=== PATIENT | female | born 1960 | race Caucasian/White ===

== ENCOUNTER 2019-08-12 16:17 | Emergency (ER) | payer OTHER ==
--- OUTSIDE RECORDS SUMMARY | 2019-08-12 16:19 | XMS REPORT ---
:1960 [facility] Address [address] [place] [address] Care Team Providers Name Role Phone UNKNOWN, REFFERING Primary Care Provider Unavailable KAIA ADRAIN Unavailable Unavailable Problems This patient has no known problems. Allergies, Adverse Reactions, Alerts This patient has no known allergies or adverse reactions. Medications This patient has no known medications. Results Test Description Test Time Test Comments Text Results Atomic Results Result Comments Culture, Urine 2017-07-14 07:59:00 Specimen: UrineCollected: 07/11/2017 07: 30 Status: Final Last Updated: 07/14/2017 07:59 Isolate (Final) (Final) 07/12/17 >100,000 CFU/mL Escherichia coli Amikacin <=16 Susceptible Ampicillin >16 Resistant Ampicillin/Sulb >16/8 Resistant Cefazolin <=8 Susceptible Cefepime <=4 Susceptible Cefotaxime <=2 Susceptible Ceftazidime <=1 Susceptible Ceftriaxone <=1 Susceptible Cefuroxime <=4 Susceptible Ciprofloxacin >2 Resistant Gentamicin <=4 Susceptible Imipenem <=1 Susceptible Levofloxacin >4 Resistant Meropenem <=1 Susceptible Nitrofurantoin <=32 Susceptible Piperacillin/Tazo <=16 Susceptible Tobramycin <=4 Susceptible Trimethoprim/Sulfa <=2/38 Susceptible Isolate (Final) (Final) 07/12/17 >100,000 CFU/mL Burkholderia cepacia (Pseudomonas) Ceftazidime 4 Susceptible Levofloxacin <=2 Susceptible Trimethoprim/Sulfa <=2/38 Susceptible Urinalysis Complete 2017-07-11 08:31:00 Test Item Value Reference Range Comments Color (test code=COLOR) Yellow Yellow,Straw,Pl yellow Clarity (test code=CLAR) Sl Cloudy Clear Specific [place] (test code=SPGR) 1.025 1.001-1.035 pH (test code=PH) 5.0 5.0-9.0 Ketone (test code=KET) 5 mg/dL Negative Glucose (test code=GLUCUR) Negative mg/dL Negative Protein (test code=PROT) 25 mg/dL Negative Bilirubin (test code=BILI) Negative mg/dL Negative Occult Blood (test code=UDOB) Large Negative Urobilinogen (test code=UROB) 0.2 mg/dL 0.2-1.0 Nitrite (test code=NIT) Positive Negative Leuk Esterase (test code=LEUK) Large Negative Micros Exam (test code=MEXAM) Indicated Epithelial Cells (test code=EPI) 6-9 /LPF 0-30 WBC, Urine (test code=UWBC) 10-14 /HPF 0-5 RBC, Urine (test code=URBC) 4-5 /HPF 0-5 Bacteria (test code=BACT) Many /HPF Crystals (test code=DM) Few Calcium Oxalate /HPF CBC with [id number] 07:40:00 Test Item Value Reference Range Comments WBC (test code=WBC) 7.0 K/cumm 4.4-10.5 RBC (test code=RBC) 4.98 M/cumm 3.75-5.20 Hemoglobin (test code=HGB) 15.2 gm/dL 12.2-14.8 Hematocrit (test code=HCT) 47.2 % 36.5-44.4 MCV (test code=MCV) 94.7 fL 80-100 MCH (test code=MCH) 30.5 pg 27.0-32.5 MCHC (test code=MCHC) 32.2 g/dL 32.0-37.5 RDW (test code=RDW) 14.0 % 11.5-14.5 Platelet Count (test code=PLTCT) 210 K/cumm 140-440 MPV (test code=MPV) 6.6 fL Diff Method (test code=DIFFM) Auto Neutrophil (test code=NEUT) 48.1 % 36-70 Lymphocyte (test code=LYMPH) 43.3 % 12-44 Monocyte (test code=MONO) 6.0 % 0-11 Eosinophil (test code=EOS) 2.1 % 0-7 Basophil (test code=BASO) 0.5 % 0-2 Neutro Abs (test code=ANEUT) 3.4 K/cumm 1.6-7.4 Lymph Abs (test code=ALYMPH) 3.0 K/cumm 0.5-4.6 Caroline Abs (test code=AMONO) 0.4 K/cumm 0.0-1.2 Eos Abs (test code=AEOS) 0.15 K/cumm 0.00-0.74 Baso Abs (test code=ABASO) 0.0 K/cumm 0.00-0.21 Culture, [id number] 09:11:00Specimen: UrineCollected: 06/17/2017 15:19 Status: Final Last Updated: 06/19/2017 09:11 Isolate (Final) (Final) 06/18/17 >100,000 CFU/mL Escherichia coli Amikacin <=16 Susceptible Ampicillin >16 Resistant Ampicillin/Sulb >16/8 Resistant Cefazolin <=8 Susceptible Cefepime <=4 Susceptible Cefotaxime <=2 Susceptible Ceftazidime <=1 Susceptible Ceftriaxone <=1 Susceptible Cefuroxime 8 SusceptibleCiprofloxacin >2 Resistant Gentamicin &lt ;=4 Susceptible Imipenem <=1 Susceptible Levofloxacin >4 Resistant Meropenem <=1 Susceptible Nitrofurantoin <=32 Susceptible Piperacillin/ Tazo <=16 Susceptible Tobramycin <=4 Susceptible Trimethoprim/Sulfa <=2/38 SusceptibleUrinalysis [id number] 19:15: 00 Test Item Value Reference Range Comments Color (test code=COLOR) Yellow Yellow,Straw,Pl yellow Clarity (test code=CLAR) Clear Clear Specific [place] (test code=SPGR) 1.010 1.001-1.035 pH (test code=PH) 7.0 5.0-9.0 Ketone (test code=KET) Negative mg/dL Negative Glucose (test code=GLUCUR) Negative mg/dL Negative Protein (test code=PROT) Negative mg/dL Negative Bilirubin (test code=BILI) Negative mg/dL Negative Occult Blood (test code=UDOB) Trace Negative Urobilinogen (test code=UROB) 0.2 mg/dL 0.2-1.0 Nitrite (test code=NIT) Positive Negative Leuk Esterase (test code=LEUK) Large Negative Micros Exam (test code=MEXAM) Indicated Epithelial Cells (test code=EPI) 3-5 /LPF 0-30 WBC, Urine (test code=UWBC) 0-2 /HPF 0-5 RBC, Urine (test code=URBC) 0-1 /HPF 0-5 Bacteria (test code=BACT) Moderate /HPF CBC with [id number] 16:49:00 Test Item Value Reference Range Comments WBC (test code=WBC) 5.7 K/cumm 4.4-10.5 RBC (test code=RBC) 5.47 M/cumm 3.75-5.20 Hemoglobin (test code=HGB) 16.5 gm/dL 12.2-14.8 Hematocrit (test code=HCT) 52.4 % 36.5-44.4 MCV (test code=MCV) 95.9 fL 80-100 MCH (test code=MCH) 30.2 pg 27.0-32.5 MCHC (test code=MCHC) 31.5 g/dL 32.0-37.5 RDW (test code=RDW) 14.2 % 11.5-14.5 Platelet Count (test code=PLTCT) 190 K/cumm 140-440 MPV (test code=MPV) 7.5 fL Diff Method (test code=DIFFM) Auto Neutrophil (test code=NEUT) 61.6 % 36-70 Lymphocyte (test code=LYMPH) 30.5 % 12-44 Monocyte (test code=MONO) 6.2 % 0-11 Eosinophil (test code=EOS) 1.0 % 0-7 Basophil (test code=BASO) 0.6 % 0-2 Neutro Abs (test code=ANEUT) 3.5 K/cumm 1.6-7.4 Lymph Abs (test code=ALYMPH) 1.7 K/cumm 0.5-4.6 Caroline Abs (test code=AMONO) 0.4 K/cumm 0.0-1.2 Eos Abs (test code=AEOS) 0.06 K/cumm 0.00-0.74 Baso Abs (test code=ABASO) 0.0 K/cumm 0.00-0.21
--- NOTE | 2019-08-12 16:56 | EDPHYS ---
Physician Documentation [facility] Name: Abimbola Erazo Age: 59 yrs Sex: Female : 1960 Arrival Date: 08/12/2019 Time: 16:20 Bed 15 Private MD: Mireya Thomson H ED Physician Boni Villa Historical: - Allergies: 08/12 16:27 Erythromycin; la1 16:27 PENICILLINS; la1 16:27 Sulfa (Sulfonamide Antibiotics); la1 16:27 TETRACYCLINES; la1 - PMHx: 16:27 back problems; MS; la1 - Immunization history:: Adult Immunizations up to date. - Social history:: Smoking status: Patient/guardian denies using tobacco. - Ebola Screening: : No symptoms or risks identified at this time. Vital Signs: 16:27 BP 121 / 65; Pulse 70; Resp 16; Temp 98.1; Pulse Ox 100% on R/A; Weight 90.72 kg; la1 Height 5 ft. 8 in. (172.72 cm); 16:27 Body Mass Index 30.41 (90.72 kg, 172.72 cm) la1 MDM: 16:42 Patient medically screened. pm1 16:53 Data reviewed: vital signs. Data interpreted: Pulse oximetry: on room air is 100 %. pm1 Interpretation: normal. Counseling: I had a detailed discussion with the patient and/or guardian regarding: the historical points, exam findings, and any diagnostic results supporting the discharge/admit diagnosis, lab results, the need for outpatient follow up, to return to the emergency department if symptoms worsen or persist or if there are any questions or concerns that arise at home. 08/12 16:42 Order name: Bladder Scanner; Complete Time: 17:15 pm1 Administered Medications: No medications were administered Disposition: 08/12/19 16:55 Discharged to Home. Impression: Urinary tract infection, site not specified. - Condition is Stable. - Discharge Instructions: Urinary Tract Infection, Adult. - Prescriptions for Ceftin 250 mg Oral Tablet - take 1 tablet by ORAL route every 12 hours for 10 days; 20 tablet. - Medication Reconciliation Form, Thank You Letter, Antibiotic Education, Prescription Opioid Use form. - Follow up: Emergency Department; When: As needed; Reason: Worsening of condition. Follow up: Private Physician; When: 2 - 3 days; Reason: Recheck today's complaints, Continuance of care, Re-evaluation by your physician. - Problem is new. - Symptoms have improved. Addendum: 08/17/2019 09:56 Co-signature as Attending Physician, Boni Villa MD I agree with the assessment and k dr plan of care. Signatures: Boni Villa MD MD [facility] Kwame Whitley, LOCATION ANALYST-C LOCATION ANALYST-[facility] Maurilio Jasso NP [employer]AND [employer] pm1 Twan Abraham, RN RN ae4 Corrections: (The following items were deleted from the chart) 08/12 17:25 16:55 08/12/2019 16:55 Discharged to Home. Impression: Urinary tract infection, site ae4 not specified. Condition is Stable. Forms are Medication Reconciliation Form, Thank You Letter, Antibiotic Education, Prescription Opioid Use. Follow up: Emergency Department; When: As needed; Reason: Worsening of condition. Follow up: Private Physician; When: 2 - 3 days; Reason: Recheck today's complaints, Continuance of care, Re-evaluation by your physician. Problem is new. Symptoms have improved. pm1
--- NOTE | 2019-08-12 16:56 | ER ---
Nurse's Notes [facility] Name: Abimbola Erazo Age: 59 yrs Sex: Female : 1960 Arrival Date: 08/12/2019 Time: 16:20 Bed 15 Private MD: Mireya Thomson H Diagnosis: Urinary tract infection, site not specified Presentation: 08/12 16:25 Presenting complaint: Patient states: my suprapubic keeps getting clogged up, I feel la1 like my bladder is full. I am able to flush it but just not making much output. Transition of care: patient was not received from another setting of care. Onset of symptoms was August 12, 2019. Risk Assessment: Do you want to hurt yourself or someone else? Patient reports no desire to harm self or others. Initial Sepsis Screen: Does the patient meet any 2 criteria? No. Patient's initial sepsis screen is negative. Does the patient have a suspected source of infection? No. Patient's initial sepsis screen is negative. Care prior to arrival: None. 16:25 Method Of Arrival: Wheelchair la1 16:25 Acuity: LILIANA 3 la1 Historical: - Allergies: 16:27 Erythromycin; la1 16:27 PENICILLINS; la1 16:27 Sulfa (Sulfonamide Antibiotics); la1 16:27 TETRACYCLINES; la1 - PMHx: 16:27 back problems; MS; la1 - Immunization history:: Adult Immunizations up to date. - Social history:: Smoking status: Patient/guardian denies using tobacco. - Ebola Screening: : No symptoms or risks identified at this time. Screenin:24 Abuse screen: Denies threats or abuse. Nutritional screening: No deficits noted. ae4 Tuberculosis screening: No symptoms or risk factors identified. Fall Risk None identified. Assessment: 16:30 General: Appears in no apparent distress. comfortable, obese, unkempt, Behavior is ae4 calm, cooperative. Pain: Complains of pain in suprapubic area. Neuro: Level of Consciousness is awake, alert, obeys commands, Oriented to person, place, time, situation, Appropriate for age. Cardiovascular: Patient's skin is warm and dry. Respiratory: Airway is patent Respiratory effort is even, unlabored, Respiratory pattern is regular, symmetrical. GI: Abdomen is round obese. : suprapubic catheter in place foul odor associated with catheter. EENT: No signs and/or symptoms were reported regarding the EENT system. wears glasses. . Derm: area surrounding insertion site to suprapubic area has crust, no redness or swelling. Musculoskeletal: No signs and/or symptoms reported regarding the musculoskeletal system. 17:19 Reassessment: No changes from previously documented assessment. ae4 Vital Signs: 16:27 BP 121 / 65; Pulse 70; Resp 16; Temp 98.1; Pulse Ox 100% on R/A; Weight 90.72 kg; la1 Height 5 ft. 8 in. (172.72 cm); 16:27 Body Mass Index 30.41 (90.72 kg, 172.72 cm) la1 ED Course: 16:20 Patient arrived in ED. mr 16:20 Berto CarynDO Abner is Private Physician. mr 16:27 Triage completed. la1 16:27 Arm band placed on left wrist. la1 16:31 Maurilio Jasso [facility]. pm1 16:31 Boni Villa MD is Attending Physician. pm1 16:43 Twan Abraham, MIRIAM is Primary Nurse. ae4 17:23 Patient is sitting in own motorized wheelchair left. Son at bedside. ae4 17:23 No provider procedures requiring assistance completed. Bladder scan completed. 43 mls. ae4 Patient did not have IV access during this emergency room visit. Administered Medications: No medications were administered Outcome: 16:55 Discharge ordered by MD. pm1 17:24 Discharged to home via wheelchair, with family. ae4 17:24 Condition: stable 17:24 Discharge instructions given to patient, Instructed on discharge instructions, follow up and referral plans. Demonstrated understanding of instructions, Prescriptions given X 1. 17:25 Patient left the ED. ae4 Signatures: SneedAbiola hastings mr WhitleyKwame, INFORMATION SYSTEMS SPECIALIST-C INFORMATION SYSTEMS SPECIALIST-Cla1 Maurilio Jasso NP LIVESTOCK TRUCKER pm1 Twan Abraham, RN RN ae4
[2019-08-12 17:35] VITALS: BP 121/65; TEMP 98.1; O2SAT 100
== END 2019-08-12 17:25 | disposition home or self-care (01) ==
LOC: ER 16:17
DX: N39.0 Urinary tract infection, site not specified (principal)
CPT/HCPCS: 99282

== ENCOUNTER 2019-08-15 20:39 | Emergency (ER) | payer OTHER ==
--- OUTSIDE RECORDS SUMMARY | 2019-08-15 20:42 | XMS REPORT ---
:1960 [facility] Address [address] [place] [address] Care Team Providers Name Role Phone UNKNOWN, REFFERING Primary Care Provider Unavailable KAIA ADRIAN Unavailable Unavailable Problems This patient has no [...] Clarity (test code=CLAR) Sl Cloudy Clear Specific [place] (test code=SPGR) 1.025 1.001-1.035 pH (test code=PH) [...] code=DM) Few Calcium Oxalate /HPF CBC with [id number] 07:40:00 Test Item Value Reference Range Comments [...] Lymph Abs (test code=ALYMPH) 3.0 K/cumm 0.5-4.6 [place] Abs (test code=AMONO) 0.4 K/cumm 0.0-1.2 Eos Abs (test code=AEOS) 0.15 K/cumm 0.00-0.74 Baso Abs (test code=ABASO) 0.0 K/cumm 0.00-0.21 Culture, [id number] 09:11:00Specimen: UrineCollected: 06/17/2017 15:19 Status: Final Last [...] Susceptible Tobramycin <=4 Susceptible Trimethoprim/Sulfa <=2/38 SusceptibleUrinalysis [id number] 19:15: 00 Test Item Value Reference Range Comments Color (test code=COLOR) Yellow Yellow,Straw,Pl yellow Clarity (test code=CLAR) Clear Clear Specific [place] (test code=SPGR) 1.010 1.001-1.035 pH (test code=PH) [...] Bacteria (test code=BACT) Moderate /HPF CBC with [id number] 16:49:00 Test Item Value Reference Range Comments [...] Lymph Abs (test code=ALYMPH) 1.7 K/cumm 0.5-4.6 [place] Abs (test code=AMONO) 0.4 K/cumm 0.0-1.2 Eos Abs (test code=AEOS) 0.06 K/cumm 0.00-0.74 Baso Abs (test code=ABASO) 0.0 K/cumm 0.00-0.21
[2019-08-15] MEDS ORDERED: NA CHLORIDE 0.9% 500 ML ONE (21:12)
[2019-08-15] MEDS ORDERED: DIAZEPAM 5 MG TABLET ONE (21:12)
[2019-08-15] MEDS ORDERED: ONDANSETRON 4 MG/2 ML VIAL ONE (21:12)
[2019-08-15] MEDS ORDERED: KETOROLAC 30 MG/ML INJ ONE (21:12)
[2019-08-15] MEDS ORDERED: HYDROMORPHONE HCL 1 MG/ML INJ ONE ×2 (21:12→22:03)
--- NOTE | 2019-08-15 23:23 | ER ---
Nurse's Notes [facility] Name: Abimbola Erazo Age: 59 yrs Sex: Female : 1960 Arrival Date: 08/15/2019 Time: 20:46 Bed 7 Private MD: Diagnosis: Pain in right knee;Other internal derangements of right knee;Multiple sclerosis Presentation: 08/15 20:46 Presenting complaint: EMS states: "this morning the pt was going to set into her chair jd3 when her leg twisted out from under her. the pt reported hearing a popping sound. there was no obvious deformity, but there is swelling and a bruising on her right pichardo below the knee.". Transition of care: patient was not received from another setting of care. Onset of symptoms was August 15, 2019. Risk Assessment: Do you want to hurt yourself or someone else? Patient reports no desire to harm self or others. Initial Sepsis Screen: Does the patient meet any 2 criteria? No. Patient's initial sepsis screen is negative. Does the patient have a suspected source of infection? No. Patient's initial sepsis screen is negative. Care prior to arrival: None. 20:46 Method Of Arrival: EMS: [facility] jd3 20:46 Acuity: LILIANA 3 jd3 Historical: - Allergies: 20:51 Erythromycin; jd3 20:51 PENICILLINS; jd3 20:51 Sulfa (Sulfonamide Antibiotics); jd3 20:51 TETRACYCLINES; jd3 - Home Meds: 20:51 fentanyl 50 mcg/hr Topical pt72 1 patch every 72 hours [Active]; Ronceverte 10-325 mg Oral jd3 tab 1 tab every 6 hours [Active]; Protonix 40 mg Oral TbEC 1 tab once daily [Active]; sertraline 100 mg Oral tab 2 tabs once daily [Active]; Lisinopril Oral [Active]; Ceftin Oral [Active]; Baclofen Oral [Active]; - PMHx: 20:51 back problems; MS; jd3 - PSHx: 20:51 left knee; spinal fusion L2-L5; jd3 - Immunization history:: Adult Immunizations up to date. - Social history:: Smoking status: Patient uses tobacco products, vape. - Ebola Screening: : Patient negative for fever greater than or equal to 101.5 degrees Fahrenheit, and additional compatible Ebola Virus Disease symptoms. - Family history:: not pertinent. Screenin:53 Abuse screen: Denies threats or abuse. Denies injuries from another. Nutritional lp1 screening: No deficits noted. Tuberculosis screening: No symptoms or risk factors identified. Fall Risk Total Buckley Fall Scale indicates High Risk Score (45 or more points). Fall prevention measures have been instituted. Side Rails Up X 2. Assessment: 20:51 General: Appears uncomfortable, Behavior is appropriate for age. Pain: Complains of lp1 pain in right knee and right pichardo Pain currently is 9 out of 10 on a pain scale. Quality of pain is described as squeezing, Aggravated by repositioning, Noted to be grimacing, moaning. Neuro: Level of Consciousness is awake, alert, obeys commands, Oriented to person, place, time, situation. Cardiovascular: Patient's skin is warm and dry. Respiratory: Respiratory effort is even, unlabored. GI: Abdomen is non-distended. : Casey in place to gravity drainage. EENT: No signs and/or symptoms were reported regarding the EENT system. Derm: Skin is pink, warm \\T\\ dry. Bruising that is dark purple, on right pichardo. Musculoskeletal: Range of motion: limited in right knee. 20:53 Reassessment: Ice pack applied to below right knee. lp1 21:54 Reassessment: Radiology at bedside. lp1 22:00 Reassessment: Patient with continued pain to right lower leg, Provider notified; Verbal lp1 order for Dilaudid 1 mg IV now. 23:30 Reassessment: Patient states continued pain to right lower leg, Provider notified. lp1 23:30 General: Appears uncomfortable. lp1 23:30 Pain: Noted to be grimacing. Derm: Skin is pink, warm \\T\\ dry. lp1 23:30 Reassessment: States pain to right lower leg. lp1 08/16 00:20 Reassessment: Verbal order from Provider for Dilaudid 1 mg IV now for patient lp1 discomfort. 00:30 Reassessment: Patient denies having ride home for discharge. lp1 00:55 Reassessment: [facility] at bedside for transfer home Patient states feeling better. lp1 Vital Signs: 08/15 20:52 BP 113 / 56; Pulse 79; Resp 18 S; Temp 98.9(O); Pulse Ox 100% on R/A; Weight 90.72 kg jd3 (R); Height 5 ft. 8 in. (172.72 cm) (R); Pain 10/10; 21:30 BP 113 / 56; Pulse 76; Resp 18; Pulse Ox 98% on R/A; lp1 22:00 BP 120 / 55; Pulse 78; Resp 18; Pulse Ox 100% on R/A; lp1 23:15 BP 96 / 72; Pulse 75; Resp 18; Pulse Ox 95% on R/A; Pain 7/10; lp1 08/16 00:00 BP 95 / 79; Pulse 73; Resp 18; Pulse Ox 96% on R/A; lp1 00:54 BP 106 / 93; Pulse 72; Resp 18; Pulse Ox 94% on R/A; Pain 6/10; lp1 08/15 20:52 Body Mass Index 30.41 (90.72 kg, 172.72 cm) [facility] ED Course: 08/15 20:46 Patient arrived in ED. jd3 20:49 Triage completed. jd3 20:49 Willian Ibarra MD is Attending Physician. [facility] 20:50 Cinthia Bruce, MIRIAM is Primary Nurse. lp1 20:52 Arm band placed on. jd3 20:53 Patient has correct armband on for positive identification. lp1 21:14 Inserted saline lock: 22 gauge in left antecubital area, using aseptic technique. jd3 22:01 Knee Right 2 View In Process Unspecified. EDMS 23:20 Femur Right XRAY In Process Unspecified. EDMS 23:22 Kwame Martinez MD is Referral Physician. [facility] 08/16 00:03 X-ray completed. Portable x-ray completed in exam room. Patient tolerated procedure 1 well. 00:15 Pelvis XRAY In Process Unspecified. EDMS 00:37 No provider procedures requiring assistance completed. lp1 00:55 IV discontinued, No redness/swelling at site. Pressure dressing applied. lp1 Administered Medications: 08/15 21:25 Drug: NS 0.9% 500 ml Route: IV; Rate: bolus; Site: left antecubital; lp1 08/16 00:57 Follow up: IV Status: Completed infusion; IV Intake: 500ml 1 08/15 21:25 Drug: TORadol 30 mg Route: IVP; Site: left antecubital; lp1 22:06 Follow up: Response: No change in condition lp1 21:25 Drug: Dilaudid 1 mg {Note: RASS 1.} Route: IVP; Site: left antecubital; lp1 22:06 Follow up: Response: Pain is unchanged, physician notified; RASS: Restless (+1) lp1 21:25 Drug: Zofran 4 mg Route: IVP; Site: left antecubital; lp1 22:07 Follow up: Response: No adverse reaction lp1 21:25 Drug: Valium 5 mg Route: PO; lp1 22:07 Follow up: Response: No adverse reaction lp1 22:06 Drug: Dilaudid 1 mg {Note: RASS 1.} Route: IVP; Site: left antecubital; lp1 23:23 Follow up: Response: Pain is unchanged, physician notified lp1 08/16 00:32 Drug: Dilaudid 1 mg Route: IVP; Site: left antecubital; lp1 00:56 Follow up: Response: Pain is decreased; RASS: Alert and Calm (0) 1 Intake: 00:57 IV: 500ml; Total: 500ml. lp1 Outcome: 08/15 23:23 Discharge ordered by . steve 08/16 00:56 Discharged to home via ambulance. lp1 Condition: stable Discharge instructions given to patient, Instructed on discharge instructions, follow up and referral plans. medication usage, Demonstrated understanding of instructions, follow-up care, medications, Prescriptions given X 2. 00:56 Patient left the ED. 1 Signatures: Dispatcher [employer] [facility] Willian Ibarra MD MD cha Harvey, Martha 1 Cinthia Bruce, RN RN 1 Timmy Tejeda RN RN jd3 Corrections: (The following items were deleted from the chart) 08/15 20:53 20:52 Wound care: 1 [facility] 08/16 00:33 08/15 23:30 General: Appears uncomfortable, lp1 lp1
--- NOTE | 2019-08-15 23:24 | EDPHYS ---
Physician Documentation [facility] Name: Abimbola Erazo Age: 59 yrs Sex: Female : 1960 Arrival Date: 08/15/2019 Time: 20:46 Bed 7 Private MD: ED Physician Willian Ibarra HPI: 08/15 20:59 This 59 yrs old Female presents to ER via EMS with complaints of Knee Pain. steve 20:59 The patient presents with decreased range of motion, pain, that is acute. The steve complaints affect the lateral aspect of right knee, posterior aspect of right knee, medial aspect of right knee and right knee. Context: The problem was sustained at home. Onset: The symptoms/episode began/occurred today. Modifying factors: The symptoms are alleviated by nothing. Associated signs and symptoms: The patient has no apparent associated signs or symptoms. Treatment prior to arrival includes: no previous treatment. Severity of symptoms: At their worst the symptoms were moderate, in the emergency department the symptoms are unchanged. The patient has not experienced similar symptoms in the past. Historical: - Allergies: 20:51 Erythromycin; jd3 20:51 PENICILLINS; jd3 20:51 Sulfa (Sulfonamide Antibiotics); jd3 20:51 TETRACYCLINES; jd3 - Home Meds: 20:51 fentanyl 50 mcg/hr Topical pt72 1 patch every 72 hours [Active]; [place] 10-325 mg Oral jd3 tab 1 tab every 6 hours [Active]; Protonix 40 mg Oral TbEC 1 tab once daily [Active]; sertraline 100 mg Oral tab 2 tabs once daily [Active]; Lisinopril Oral [Active]; Ceftin Oral [Active]; Baclofen Oral [Active]; - PMHx: 20:51 back problems; MS; jd3 - PSHx: 20:51 left knee; spinal fusion L2-L5; jd3 - Immunization history:: Adult Immunizations up to date. - Social history:: Smoking status: Patient uses tobacco products, vape. - Ebola Screening: : Patient negative for fever greater than or equal to 101.5 degrees Fahrenheit, and additional compatible Ebola Virus Disease symptoms. - Family history:: not pertinent. ROS: 20:59 Constitutional: Negative for fever, chills, and weight loss, Eyes: Negative for injury, steve pain, redness, and discharge, ENT: Negative for injury, pain, and discharge, Neck: Negative for injury, pain, and swelling, Cardiovascular: Negative for chest pain, palpitations, and edema, Respiratory: Negative for shortness of breath, cough, wheezing, and pleuritic chest pain, Abdomen/GI: Negative for abdominal pain, nausea, vomiting, diarrhea, and constipation, Back: Negative for injury and pain, : Negative for injury, bleeding, discharge, and swelling, Skin: Negative for injury, rash, and discoloration, Neuro: Negative for headache, weakness, numbness, tingling, and seizure, Psych: Negative for depression, anxiety, suicide ideation, homicidal ideation, and hallucinations, Allergy/Immunology: Negative for hives, rash, and allergies, Endocrine: Negative for neck swelling, polydipsia, polyuria, polyphagia, and marked weight changes, Hematologic/Lymphatic: Negative for swollen nodes, abnormal bleeding, and unusual bruising. 20:59 MS/extremity: Positive for injury or acute deformity, decreased range of motion, pain, swelling, tenderness. Exam: 21:01 Constitutional: This is a well developed, well nourished patient who is awake, alert, steve and in no acute distress. Head/Face: Normocephalic, atraumatic. Eyes: Pupils equal round and reactive to light, extra-ocular motions intact. Lids and lashes normal. Conjunctiva and sclera are non-icteric and not injected. Cornea within normal limits. Periorbital areas with no swelling, redness, or edema. ENT: Nares patent. No nasal discharge, no septal abnormalities noted. Tympanic membranes are normal and external auditory canals are clear. Oropharynx with no redness, swelling, or masses, exudates, or evidence of obstruction, uvula midline. Mucous membranes moist. Neck: Trachea midline, no thyromegaly or masses palpated, and no cervical lymphadenopathy. Supple, full range of motion without nuchal rigidity, or vertebral point tenderness. No Meningismus. Chest/axilla: Normal chest wall appearance and motion. Nontender with no deformity. No lesions are appreciated. Cardiovascular: Regular rate and rhythm with a normal S1 and S2. No gallops, murmurs, or rubs. Normal PMI, no JVD. No pulse deficits. Respiratory: Lungs have equal breath sounds bilaterally, clear to auscultation and percussion. No rales, rhonchi or wheezes noted. No increased work of breathing, no retractions or nasal flaring. Abdomen/GI: Soft, non-tender, with normal bowel sounds. No distension or tympany. No guarding or rebound. No evidence of tenderness throughout. Back: No spinal tenderness. No costovertebral tenderness. Full range of motion. Skin: Warm, dry with normal turgor. Normal color with no rashes, no lesions, and no evidence of cellulitis. Neuro: Awake and alert, GCS 15, oriented to person, place, time, and situation. Cranial nerves II-XII grossly intact. Motor strength 5/5 in all extremities. Sensory grossly intact. Cerebellar exam normal. Normal gait. Psych: Awake, alert, with orientation to person, place and time. Behavior, mood, and affect are within normal limits. 21:01 Musculoskeletal/extremity: ROM: intact in all extremities, Circulation is intact in all extremities. Sensation intact. Compartment Syndrome exam of affected extremity: is normal. DVT Exam: No signs of deep vein thrombosis. negative Homans' sign noted on exam, no appreciated bluish discoloration, no erythema, no increased warmth, pain, swelling, tenderness. Vital Signs: 20:52 BP 113 / 56; Pulse 79; Resp 18 S; Temp 98.9(O); Pulse Ox 100% on R/A; Weight 90.72 kg jd3 (R); Height 5 ft. 8 in. (172.72 cm) (R); Pain 10/10; 21:30 BP 113 / 56; Pulse 76; Resp 18; Pulse Ox 98% on R/A; lp1 22:00 BP 120 / 55; Pulse 78; Resp 18; Pulse Ox 100% on R/A; lp1 23:15 BP 96 / 72; Pulse 75; Resp 18; Pulse Ox 95% on R/A; Pain 7/10; lp1 1201 00:00 BP 95 / 79; Pulse 73; Resp 18; Pulse Ox 96% on R/A; lp1 00:54 BP 106 / 93; Pulse 72; Resp 18; Pulse Ox 94% on R/A; Pain 6/10; lp1 08/15 20:52 Body Mass Index 30.41 (90.72 kg, 172.72 cm) jd3 MDM: 08/15 20:49 Patient medically screened. steve 21:01 Data reviewed: vital signs, nurses notes, lab test result(s), EKG, radiologic studies. [facility] 08/15 22:01 Order name: Knee Right 2 View EDMS 08/15 22:09 Order name: Femur Right XRAY [facility] 08/15 23:16 Order name: Pelvis XRAY [facility] 08/15 21:37 Order name: Ice pack; Complete Time: 21:42 [facility] 08/15 23:17 Order name: Knee Immobilizer; Complete Time: 23:56 [facility] Administered Medications: 21:25 Drug: NS 0.9% 500 ml Route: IV; Rate: bolus; Site: left antecubital; [facility] 08/16 00:57 Follow up: IV Status: Completed infusion; IV Intake: 500ml [facility] 08/15 21:25 Drug: TORadol 30 mg Route: IVP; Site: left antecubital; [facility] 22:06 Follow up: Response: No change in condition [facility] 21:25 Drug: Dilaudid 1 mg {Note: RASS 1.} Route: IVP; Site: left antecubital; [facility] 22:06 Follow up: Response: Pain is unchanged, physician notified; RASS: Restless (+1) [facility] 21:25 Drug: Zofran 4 mg Route: IVP; Site: left antecubital; 1 22:07 Follow up: Response: No adverse reaction [facility] 21:25 Drug: Valium 5 mg Route: PO; 1 22:07 Follow up: Response: No adverse reaction [facility] 22:06 Drug: Dilaudid 1 mg {Note: RASS 1.} Route: IVP; Site: left antecubital; [facility] 23:23 Follow up: Response: Pain is unchanged, physician notified [facility] 08/16 00:32 Drug: Dilaudid 1 mg Route: IVP; Site: left antecubital; 1 00:56 Follow up: Response: Pain is decreased; RASS: Alert and Calm (0) [facility] Disposition: 08/15/19 23:23 Discharged to Home. Impression: Pain in right knee, Other internal derangements of right knee, Multiple sclerosis. - Condition is Stable. - Discharge Instructions: Joint Pain, How to Use a Knee Brace, Musculoskeletal Pain, Knee Pain, Multiple Sclerosis, Knee Pain, [id number]. - Prescriptions for Ibuprofen 600 mg Oral Tablet - take 1 tablet by ORAL route every 8 hours As needed take with food; 21 tablet. Tylenol- Codeine #3 300-30 mg Oral Tablet - take 2 tablet by ORAL route every 6 hours As needed; 30 tablet. - Medication Reconciliation Form, Thank You Letter, Antibiotic Education, Prescription Opioid Use form. - Follow up: Private Physician; When: 2 - 3 days; Reason: Recheck today's complaints, Continuance of care, Re-evaluation by your physician. Follow up: Kwame Martinez MD; When: 2 - 3 days; Reason: Recheck today's complaints, Re-evaluation by your physician. - Problem is new. - Symptoms have improved. Signatures: Dispatcher [employer] [facility] Willian Ibarra MD MD cha Pena, Laura RN RN lp1 Timmy Tejeda RN RN jd3 Corrections: (The following items were deleted from the chart) 08/15 22:01 21:38 Knee Right 3 View+RAD.RAD.BRZ ordered. [facility] 08/16 00:56 08/15 23:23 08/15/2019 23:23 Discharged to Home. Impression: Pain in right knee; Other lp1 internal derangements of right knee; Multiple sclerosis. Condition is Stable. Forms are Medication Reconciliation Form, Thank You Letter, Antibiotic Education, Prescription Opioid Use. Follow up: Private Physician; When: 2 - 3 days; Reason: Recheck today's complaints, Continuance of care, Re-evaluation by your physician. Follow up: Kwame Martinez; When: 2 - 3 days; Reason: Recheck today's complaints, Re-evaluation by your physician. Problem is new. Symptoms have improved. steve
[2019-08-16] MEDS ORDERED: HYDROMORPHONE HCL 1 MG/ML INJ ONE (00:26)
[2019-08-16 01:33] VITALS: TEMP 98.9
[2019-08-16 01:39] VITALS: BP 106/93; O2SAT 94
--- NOTE | 2019-08-16 13:10 | RAD REPORT ---
EXAM DESCRIPTION: RAD - Pelvis - 08/16/2019 12:08 am CLINICAL HISTORY: PAIN COMPARISON: Femur Right dated 08/15/2019; CHEST PA AND LAT 2 VIEW dated 12/08/2014 FINDINGS: Diffuse osteopenia is seen. Old right hemipelvis for fractures noted. Mild arthritic graves es involve the superior right hip. Hardware is present the lumbosacral spine. No acute fracture seen. If pain persists or progresses, however, MR imaging may be considered given the degree of osteopenia
--- NOTE | 2019-08-16 13:16 | RAD REPORT ---
EXAM DESCRIPTION: RAD - Femur Right - 08/15/2019 11:20 pm CLINICAL HISTORY: PAIN COMPARISON: No comparisons FINDINGS: Diffuse osteopenia is seen. No acute fracture of the femur. Evidence of previous fracture the right hemipelvis seen.
--- NOTE | 2019-08-16 13:17 | RAD REPORT ---
EXAM DESCRIPTION: RAD - Knee Right 2 View - 08/15/2019 10:01 pm CLINICAL HISTORY: Pain;Swelling COMPARISON: No comparisons FINDINGS: Diffuse osteopenia is seen. Severe osteoarthritis involves the medial compartment with bon e-on-bone. Soft tissue swelling is seen along the medial aspect of the knee. A small suprapatellar rachana int effusion. Slight irregularity is seen along the tibial tuberosity, age uncertain. If the patient has clinical point tenderness in this location, this may be an acute finding.
== END 2019-08-16 00:56 | disposition home or self-care (01) ==
LOC: ER 20:39
DX: M23.91 Unspecified internal derangement of right knee (principal); G35 Multiple sclerosis; Z88.0 Allergy status to penicillin; Z88.1 Allergy status to other antibiotic agents; Z88.2 Allergy status to sulfonamides
CPT/HCPCS: 96361; 72170; 73560; 73552; 96375; 96374; 99284; J1170 ×3; J7040; J2405

== ENCOUNTER 2019-10-25 16:35 | Emergency (ER) | payer OTHER ==
--- OUTSIDE RECORDS SUMMARY | 2019-10-25 16:37 | XMS REPORT ---
:1960 Author Organization [facility] Address [address] [place] [address] Care Team Providers Name Role Phone UNKNOWN, [...] Clarity (test code=CLAR) Sl Cloudy Clear Specific Procious (test code=SPGR) 1.025 1.001-1.035 pH (test code=PH) [...] code=DM) Few Calcium Oxalate /HPF CBC with [id number] 07:40:00 Test Item Value Reference Range Comments [...] Lymph Abs (test code=ALYMPH) 3.0 K/cumm 0.5-4.6 [place] Abs (test code=AMONO) 0.4 K/cumm 0.0-1.2 Eos Abs (test code=AEOS) 0.15 K/cumm 0.00-0.74 Baso Abs (test code=ABASO) 0.0 K/cumm 0.00-0.21 Culture, [id number] 09:11:00Specimen: UrineCollected: 06/17/2017 15:19 Status: Final Last [...] Susceptible Tobramycin <=4 Susceptible Trimethoprim/Sulfa <=2/38 SusceptibleUrinalysis [id number] 19:15: 00 Test Item Value Reference Range Comments Color (test code=COLOR) Yellow Yellow,Straw,Pl yellow Clarity (test code=CLAR) Clear Clear Specific [place] (test code=SPGR) 1.010 1.001-1.035 pH (test code=PH) [...] Bacteria (test code=BACT) Moderate /HPF CBC with [id number] 16:49:00 Test Item Value Reference Range Comments [...] Lymph Abs (test code=ALYMPH) 1.7 K/cumm 0.5-4.6 [place] Abs (test code=AMONO) 0.4 K/cumm 0.0-1.2 Eos Abs (test code=AEOS) 0.06 K/cumm 0.00-0.74 Baso Abs (test code=ABASO) 0.0 K/cumm 0.00-0.21
[2019-10-25] MEDS ORDERED: FENTANYL CITR 100 MCG/2 ML ONE ×3 (17:46→21:20)
[2019-10-25] MEDS ORDERED: ONDANSETRON 4 MG/2 ML VIAL ONE (17:46)
[2019-10-25 18:25] LABS: BUN Blood Urea Nitrogen 11 mg/dL (7-18); Bicarbonate 30 mmol/L (21-32); Glucose Level 83 mg/dL (74-106); Potassium 4.4 mmol/L (3.5-5.1); Sodium Level 140 mmol/L (136-145)
--- NOTE | 2019-10-25 18:40 | RAD REPORT ---
EXAM DESCRIPTION: RAD - Chest Single View - 10/25/2019 6:34 pm CLINICAL HISTORY: fall from wheelchair Chest pain. COMPARISON: CHEST PA AND LAT 2 VIEW dated 12/08/2014; CHEST PA AND LAT 2 VIEW dated 06/21/2014 FINDINGS: Portable technique limits examination quality. The lungs are grossly clear. The heart is normal in size. No displaced fractures. IMPRESSION: No acute intrathoracic process suspected.
--- NOTE | 2019-10-25 19:18 | RAD REPORT ---
EXAM DESCRIPTION: RAD - Pelvis - 10/25/2019 7:09 pm CLINICAL HISTORY: fall from wheelchair COMPARISON: Pelvis dated 08/15/2019; Femur Right dated 10/25/2019; Tib Fib Right dated 10/25/2019; Femur Left dated 10/25/2019 FINDINGS: Hardware is in place in the lower lumbar spine. The bones are mildly osteopenic. Mild dege nerative changes are present in both hips. No acute fracture evident.
--- NOTE | 2019-10-25 19:19 | RAD REPORT ---
EXAM DESCRIPTION: RAD - Tib Fib Right - 10/25/2019 7:09 pm CLINICAL HISTORY: fall from wheelchair;Pain COMPARISON: No comparisons FINDINGS: Diffuse osteopenia is seen limiting bone detail. Prominent arthritic changes are noted in the right knee. No tibia/ fibula fracture appreciated.
--- NOTE | 2019-10-25 19:19 | RAD REPORT ---
EXAM DESCRIPTION: RAD - Femur Right - 10/25/2019 7:10 pm CLINICAL HISTORY: fall from wheelchair;Pain COMPARISON: Femur Right dated 08/15/2019; Knee Right 2 View dated 08/15/2019; Pelvis dated 9 FINDINGS: Comminuted fracture involves the distal shaft of the right femur. The bones are diffusely osteopenic.
--- NOTE | 2019-10-25 19:20 | RAD REPORT ---
EXAM DESCRIPTION: RAD - Femur Left - 10/25/2019 7:09 pm CLINICAL HISTORY: fall from wheelchair COMPARISON: No comparisons FINDINGS: Comminuted fracture involves the distal shaft of the left femur. Left total knee arthropla sty is present. The bones are osteopenic.
[2019-10-25] MEDS ORDERED: MORPHINE 4 MG/ML SYR ONE ×2 (19:21→20:42)
[2019-10-25 19:37] LABS: Absolute Lymphocytes (CBC) 2.1 K/uL (0.7-4.9); Basophils % 0.4 % (0-1.3); Hematocrit 43.8 % (36.0-45.0); Lymphocytes % 11.6 % (15.3-44.8); MPV 7.8 fL (7.6-11.3); RBC Red Blood Cell Count 4.83 M/uL (3.86-4.86)
[2019-10-25] MEDS ORDERED: NA CHLORIDE 0.9% 1,000 ML ONE (19:59)
--- NOTE | 2019-10-25 20:34 | RAD REPORT ---
EXAM DESCRIPTION: CT - Head C Spine Cap Hansa Con - 10/25/2019 8:12 pm CLINICAL HISTORY: Trauma, head and neck injury. Chest, abdomen and pelvis pain. fall from wheelchair COMPARISON: No comparisons TECHNIQUE: CT head without contrast. CT cervical spine without contrast with coronal and sagittal reformatted images. CT chest, abdomen and pelvis with IV contrast (approximately 100 mL nonionic IV contrast) with haines l and sagittal reformatted images of the spine. All CT scans are performed using dose optimization technique as appropriate and may include automated exposure control or mA/KV adjustment according to patient size. FINDINGS: CT HEAD WITHOUT CONTRAST: No intracranial hemorrhage, hydrocephalus or extra-axial fluid collection. Mild generalized brain atr ophy is present with mild periventricular and deep white matter chronic microvascular ischemic change s. No areas of brain edema or midline shift. The paranasal sinuses and mastoids are clear. The calvarium is intact. CT CERVICAL SPINE WITHOUT CONTRAST: No fracture or subluxation. Mild to moderate lower cervical spondylosis. The prevertebral soft tissue s are normal in thickness. CT CHEST, ABDOMEN, PELVIS WITH CONTRAST: The lungs are clear.No pneumothorax or pericardial/pleural fluid. No evidence of intra-abdominal visceral injury, free fluid or free air. Prominent degenerative levoscoliosis of the lumbar spine with hardware in place. No fractures. IMPRESSION: Negative for acute traumatic findings.
[2019-10-25] MEDS ORDERED: HYDROMORPHONE HCL 1 MG/ML INJ ONE ×2 (22:29→23:24)
[2019-10-25] MEDS ORDERED: NA CHLORIDE 0.9% 100 ML IV ONE (22:29)
--- NOTE | 2019-10-25 22:37 | ER ---
Nurse's Notes [facility] Name: Abimbola Erazo Age: 59 yrs Sex: Female : 1960 Arrival Date: 10/25/2019 Time: 16:43 Bed 14 Private MD: Diagnosis: Fall from moving wheelchair (powered);Displaced comminuted fracture of shaft of left femur-distal femur;Displaced comminuted fracture of shaft of right femur-distal femur Presentation: 10/25 16:48 Presenting complaint: EMS states: Pt's wheelchair wheel caught the edge of a curb ss causing her to fall in a shallow ditch. Pt c/o pain to R thigh area as well as L mid back area. Denies LOC. Transition of care: patient was not received from another setting of care. Onset of symptoms was October 25, 2019. Risk Assessment: Do you want to hurt yourself or someone else? Patient reports no desire to harm self or others. Initial Sepsis Screen: Does the patient meet any 2 criteria? No. Patient's initial sepsis screen is negative. Does the patient have a suspected source of infection? No. Patient's initial sepsis screen is negative. Care prior to arrival: None. 16:48 Method Of Arrival: EMS: [facility] ss 16:48 Acuity: LILIANA 3 ss Historical: - Allergies: 16:50 Erythromycin; ss 16:50 PENICILLINS; ss 16:50 Sulfa (Sulfonamide Antibiotics); ss 16:50 TETRACYCLINES; ss - Home Meds: 16:50 Baclofen Oral [Active]; Ceftin Oral [Active]; fentanyl 50 mcg/hr Topical pt72 1 patch ss every 72 hours [Active]; lisinopril Oral [Active]; sertraline 100 mg Oral tab 2 tabs once daily [Active]; Protonix 40 mg Oral TbEC 1 tab once daily [Active]; [place] 10-325 mg Oral tab 1 tab every 6 hours [Active]; - PMHx: 16:50 back problems; MS; ss - PSHx: 16:50 left knee; spinal fusion L2-L5; ss - Immunization history:: Adult Immunizations up to date. - Coronavirus screen:: The patient has NOT traveled to [place], [place], or [place] in the past 14 days. Proceed with normal triage process as indicated. - Social history:: Smoking status: Patient reports the use of cigarette tobacco products, denies chronic smoking, but will smoke occasionally. - Ebola Screening: : Patient denies exposure to infectious person Patient denies travel to an Ebola-affected area in the 21 days before illness onset. Screenin:00 Abuse screen: Denies threats or abuse. Nutritional screening: No deficits noted. vc Tuberculosis screening: No symptoms or risk factors identified. Fall Risk None identified. Assessment: 17:08 Reassessment: Pt changed out of wet clothing. ss 17:15 General: Appears distressed, uncomfortable, obese, Behavior is cooperative, appropriate vc for age, anxious, crying. Pain: Complains of pain in left leg and right leg, NECK, BACK, ABDOMEN. Neuro: Level of Consciousness is awake, alert, obeys commands, Oriented to person, place, time, situation, Appropriate for age. Cardiovascular: Patient's skin is warm and dry. Respiratory: Respiratory effort is even, unlabored, Respiratory pattern is regular, symmetrical. GI: No signs and/or symptoms were reported involving the gastrointestinal system. : No signs and/or symptoms were reported regarding the genitourinary system. EENT: No signs and/or symptoms were reported regarding the EENT system. Derm: Skin temperature is cold COLD AT BILATERAL FEET, PULSES AUSCULTATED WITH DOPPLER. Musculoskeletal: Range of motion: limited in all extremities. 17:50 Reassessment: PATIENT TO XRAY VIA STRETCHER. vc 17:50 Reassessment:. vc 19:20 Reassessment: PATIENT BACK FROM XRAY. vc 19:30 Reassessment: PATIENT TO CT VIA STRETCHER. vc 19:40 Reassessment: I agree with the primary assessment. bb 20:30 Reassessment: Patient and/or family updated on plan of care and expected duration. Pain vc level reassessed. Patient is alert, oriented x 3, equal unlabored respirations, skin warm/dry/pink. PATIENT BACK FROM CT. 21:00 Reassessment: No changes from previously documented assessment. Patient and/or family vc updated on plan of care and expected duration. Pain level reassessed. Patient states symptoms have not improved. 22:00 Reassessment: No changes from previously documented assessment. Patient and/or family vc updated on plan of care and expected duration. Pain level reassessed. Patient states symptoms have not improved. 23:00 Reassessment: No changes from previously documented assessment. Patient and/or family vc updated on plan of care and expected duration. Pain level reassessed. Patient is alert, oriented x 3, equal unlabored respirations, skin warm/dry/pink. Patient states symptoms have improved. Vital Signs: 16:50 BP 128 / 84; Pulse 64; Resp 17; Temp 98.8(O); Pulse Ox 97% on R/A; Height 5 ft. 8 in. ss (172.72 cm); Pain 6/10; 20:35 BP 86 / 51; Pulse 115; Resp 18; Pulse Ox 99% on R/A; Pain 10/10; vc 21:10 BP 102 / 60; Pulse 113; Resp 20; Pulse Ox 95% on R/A; Pain 10/10; vc 22:00 BP 74 / 59; Pulse 102; Resp 18; Pulse Ox 100% on R/A; vc 22:30 BP 86 / 55; Pulse 93; Resp 18; Pulse Ox 98% on R/A; Pain 10/10; vc 23:00 BP 93 / 61; Pulse 100; Resp 20; Pulse Ox 100% on R/A; Pain 7/10; vc ED Course: 16:43 Patient arrived in ED. ss 16:43 Maurilio Jasso NP is PHCP. pm1 16:43 Danny Kaur MD is Attending Physician. pm1 16:43 Willian Chicas PA is PHCP. pm1 16:49 Triage completed. ss 16:50 Arm band placed on left wrist. ss 17:00 Patient has correct armband on for positive identification. Placed in gown. Bed in low vc position. Call light in reach. Side rails up X2. 17:23 Radiology exam delayed due to lab results not completed at this time. (BUN/Creatinine). mw3 17:39 Hetal Gomez, RN is Primary Nurse. vc 18:35 XRAY Chest (1 view) In Process Unspecified. EDMS 19:10 XRAY Pelvis In Process Unspecified. EDMS 19:10 XRAY Femur RIGHT In Process Unspecified. EDMS 19:10 XRAY Tib Fib RIGHT In Process Unspecified. EDMS 19:10 XRAY Femur LEFT In Process Unspecified. EDMS 20:12 CT completed. Patient tolerated procedure well. Patient moved back from CT. bq 20:14 CT Traumagram (Head C Spine CAP W Con) In Process Unspecified. EDMS 21:06 Jp Silva MD is Attending Physician. cp 23:30 No provider procedures requiring assistance completed. Patient transferred, IV remains vc in place. Administered Medications: 17:50 Drug: fentaNYL (PF) 25 mcg {Note: rass 0 .} Route: IVP; Site: left antecubital; vc 18:15 Follow up: Response: No adverse reaction; Pain is unchanged, physician notified vc 17:55 Drug: Zofran 4 mg Route: IVP; Site: left antecubital; vc 18:15 Follow up: Response: No adverse reaction vc 19:00 Drug: NS 0.9% 1000 ml Route: IV; Rate: 1000 ml/hr; Site: left antecubital; vc 20:00 Follow up: IV Status: Completed infusion; IV Intake: 1000ml vc 19:23 Drug: morphine 4 mg {Note: RASS 1.} Route: IVP; Site: left antecubital; ea 19:40 Follow up: Response: No adverse reaction; Pain is unchanged, physician notified vc 20:35 Drug: fentaNYL (PF) 25 mcg Route: IVP; Site: left antecubital; vc 21:00 Follow up: Response: Pain is unchanged, physician notified vc 21:10 Drug: fentaNYL (PF) 50 mcg Route: IVP; Site: left antecubital; vc 21:40 Follow up: Response: Pain is unchanged, physician notified vc 21:57 Drug: morphine 4 mg Route: IVP; Site: left antecubital; vc 22:15 Follow up: Response: Pain is unchanged, physician notified vc 22:50 Drug: Dilaudid 1 mg Route: IVP; Rate: calculated rate; Infused Over: 30 mins; Site: ea left antecubital; 23:00 Follow up: Response: Pain is decreased vc 23:38 Drug: Dilaudid 1 mg Route: IVP; Rate: 250 ml/hr; Infused Over: 1 hrs; Site: left vc antecubital; 10/26 00:03 Follow up: Response: Medication administered at discharge. vc Intake: 10/25 20:00 IV: 1000ml; Total: 1000ml. vc 10/26 00:37 IV: 250ml (IV Fluid); Total: 1250ml. bb 00:37 IV: 250ml (IV Fluid); Total: 1500ml. bb Outcome: 10/25 22:37 ER care complete, transfer ordered by . cp 23:30 Transferred by ground EMS to other acute care facility: [facility]. Transfer form vc completed. X-rays sent w/ patient. 23:30 Condition: stable 23:30 Discharge instructions given to patient. vc 23:39 Patient left the ED. vc Signatures: Dispatcher [employer] EDMS Ana Conley Brenda RN RN bb Mara Briseno RN RN ss Willian Chicas, PA PA cp Maurilio Jasso, STRIP PRESSER STRIP PRESSER pm1 Yumiko Wells RN RN ea Katty Tariq mw3 Hetal Gomez RN RN vc Corrections: (The following items were deleted from the chart) 17:07 16:48 Acuity: LILIANA 4 ss ss 19:23 19:23 morphine 4 mg IVP in left antecubital ea ea 10/26 00:10/25 18:15 Reassessment: No changes from previously documented assessment. Patient vc and/or family updated on plan of care and expected duration. Pain level reassessed. vc 10/26 99:10/25 19:15 Reassessment: Patient and/or family updated on plan of care and expected vc duration. Pain level reassessed. PATIENT STATES PAIN MEDICATION IS NOT HELPING, PROVIDER NOTIFED. vc 10/26 99:10/25 20:15 Reassessment: No changes from previously documented assessment. Patient vc and/or family updated on plan of care and expected duration. Pain level reassessed. vc
--- NOTE | 2019-10-25 22:38 | EDPHYS ---
Physician Documentation [facility] Name: Abimbola Erazo Age: 59 yrs Sex: Female : 1960 Arrival Date: 10/25/2019 Time: 16:43 Bed 14 Private MD: ED Physician Jp Silva HPI: 10/25 17:04 This 59 yrs old Female presents to ER via EMS with complaints of Fall Injury. cp 17:04 Details of fall: The patient fell from seated position, out of a wheelchair. Onset: The cp symptoms/episode began/occurred just prior to arrival. Associated injuries: The patient sustained right leg, painful injury. Patient reports she was in wheelchair when it struck curb and caused her to fall out of wheelchair and roll down hill. This was witnessed by bystanders who called EMS immediately. Historical: - Allergies: 16:50 Erythromycin; ss 16:50 PENICILLINS; ss 16:50 Sulfa (Sulfonamide Antibiotics); ss 16:50 TETRACYCLINES; ss - Home Meds: 16:50 Baclofen Oral [Active]; Ceftin Oral [Active]; fentanyl 50 mcg/hr Topical pt72 1 patch ss every 72 hours [Active]; lisinopril Oral [Active]; sertraline 100 mg Oral tab 2 tabs once daily [Active]; Protonix 40 mg Oral TbEC 1 tab once daily [Active]; [place] 10-325 mg Oral tab 1 tab every 6 hours [Active]; - PMHx: 16:50 back problems; MS; ss - PSHx: 16:50 left knee; spinal fusion L2-L5; ss - Immunization history:: Adult Immunizations up to date. - Coronavirus screen:: The patient has NOT traveled to [place], [place], or [place] in the past 14 days. Proceed with normal triage process as indicated. - Social history:: Smoking status: Patient reports the use of cigarette tobacco products, denies chronic smoking, but will smoke occasionally. - Ebola Screening: : Patient denies exposure to infectious person Patient denies travel to an Ebola-affected area in the 21 days before illness onset. ROS: 17:10 Constitutional: Negative for body aches, chills, fever, poor PO intake. cp 17:10 Eyes: Negative for injury, pain, redness, and discharge. cp 17:10 ENT: Negative for drainage from ear(s), ear pain, sore throat, difficulty swallowing, difficulty handling secretions. 17:10 Cardiovascular: Negative for chest pain, palpitations. 17:10 Respiratory: Negative for cough, shortness of breath, wheezing. 17:10 Abdomen/GI: Negative for abdominal pain, vomiting, diarrhea, constipation. 17:10 MS/extremity: Positive for pain, of the right leg. 17:10 Neuro: Negative for altered mental status, headache, loss of consciousness. 17:10 All other systems are negative. Exam: 17:20 Constitutional: The patient appears in no acute distress, alert, awake, cp non-diaphoretic, non-toxic, well developed, well nourished, obese, uncomfortable. 17:20 Head/Face: Normocephalic, atraumatic. cp 17:20 Eyes: Periorbital structures: appear normal, Pupils: equal, round, and reactive to light and accomodation, Extraocular movements: intact throughout, Conjunctiva: normal, no exudate, no injection, Lids and lashes: appear normal, bilaterally. 17:20 ENT: External ear(s): are unremarkable, Ear canal(s): are normal, clear, TM's: dullness, bilaterally, Nose: is normal, Mouth: Lips: moist, Oral mucosa: pink and intact, moist, Posterior pharynx: is normal, airway is patent, no erythema, no exudate. 17:20 Neck: C-spine: vertebral tenderness, is not appreciated, crepitus, is not appreciated. 17:20 Chest/axilla: Inspection: normal, Palpation: is normal, no crepitus, no tenderness. 17:20 Cardiovascular: Rate: normal, Rhythm: regular, Edema: is not appreciated, JVD: is not appreciated. 17:20 Respiratory: the patient does not display signs of respiratory distress, Respirations: normal, no use of accessory muscles, no retractions, labored breathing, is not present, Breath sounds: are clear throughout, no decreased breath sounds, no stridor, no wheezing. 17:20 Abdomen/GI: Inspection: abdomen appears normal, Bowel sounds: active, all quadrants, Palpation: abdomen is soft and non-tender, in all quadrants, voluntary guarding, is not appreciated, involuntary guarding, is not appreciated. 17:20 Musculoskeletal/extremity: Extremities: grossly normal except: noted in the right leg: deformity, pain, tenderness, noted in the left leg: pain, tenderness, Pulses: noted to be 2+ in the right dorsalis pedis artery and left dorsalis pedis artery. 17:20 Skin: no rash present. 17:20 Neuro: Orientation: to person, place \T\ time. Mentation: is normal. Vital Signs: 16:50 BP 128 / 84; Pulse 64; Resp 17; Temp 98.8(O); Pulse Ox 97% on R/A; Height 5 ft. 8 in. ss (172.72 cm); Pain 6/10; 20:35 BP 86 / 51; Pulse 115; Resp 18; Pulse Ox 99% on R/A; Pain 10/10; vc 21:10 BP 102 / 60; Pulse 113; Resp 20; Pulse Ox 95% on R/A; Pain 10/10; vc 22:00 BP 74 / 59; Pulse 102; Resp 18; Pulse Ox 100% on R/A; vc 22:30 BP 86 / 55; Pulse 93; Resp 18; Pulse Ox 98% on R/A; Pain 10/10; vc 23:00 BP 93 / 61; Pulse 100; Resp 20; Pulse Ox 100% on R/A; Pain 7/10; vc MDM: 16:48 Patient medically screened. cp 17:10 ED course: Patient has [address] for chronic pain control. IV pain cp meds ordered if pain not controlled. 21:03 Data reviewed: vital signs, nurses notes, lab test result(s), radiologic studies, CT cp scan, plain films, I have discussed the patient's presentation/case with the attending Emergency Department Physician;. 10/25 16:48 Order name: Basic Metabolic Panel; Complete Time: 18:50 cp 10/25 19:42 Interpretation: Reviewed. cp 10/25 16:48 Order name: CBC with Diff; Complete Time: 19:41 cp 10/25 19:41 Interpretation: Normal except: WBC 18.0; MCV 90.8; JESSICA% 83.2; LYM% 11.6; NEUT A 14.9. cp 10/25 16:48 Order name: Creatinine for Radiology; Complete Time: 18:50 cp 10/25 16:48 Order name: Type And Screen; Complete Time: 18:50 cp 10/25 16:48 Order name: PT-INR; Complete Time: 18:50 cp 10/25 16:48 Order name: Ptt, Activated; Complete Time: 18:50 cp 10/25 16:48 Order name: CT Traumagram (Head C Spine CAP W Con); Complete Time: 20:41 cp 10/25 16:48 Order name: XRAY Chest (1 view); Complete Time: 18:50 cp 10/25 16:48 Order name: XRAY Pelvis; Complete Time: 19:41 cp 10/25 16:48 Order name: XRAY Femur RIGHT; Complete Time: 19:41 cp 10/25 16:48 Order name: XRAY Tib Fib RIGHT; Complete Time: 19:41 cp 10/25 18:50 Order name: XRAY Femur LEFT; Complete Time: 19:41 cp 10/25 16:48 Order name: Labs collected and sent; Complete Time: 00:08 cp Administered Medications: 17:50 Drug: fentaNYL (PF) 25 mcg {Note: rass 0 .} Route: IVP; Site: left antecubital; vc 18:15 Follow up: Response: No adverse reaction; Pain is unchanged, physician notified vc 17:55 Drug: Zofran 4 mg Route: IVP; Site: left antecubital; vc 18:15 Follow up: Response: No adverse reaction vc 19:00 Drug: NS 0.9% 1000 ml Route: IV; Rate: 1000 ml/hr; Site: left antecubital; vc 20:00 Follow up: IV Status: Completed infusion; IV Intake: 1000ml vc 19:23 Drug: morphine 4 mg {Note: RASS 1.} Route: IVP; Site: left antecubital; ea 19:40 Follow up: Response: No adverse reaction; Pain is unchanged, physician notified vc 20:35 Drug: fentaNYL (PF) 25 mcg Route: IVP; Site: left antecubital; vc 21:00 Follow up: Response: Pain is unchanged, physician notified vc 21:10 Drug: fentaNYL (PF) 50 mcg Route: IVP; Site: left antecubital; vc 21:40 Follow up: Response: Pain is unchanged, physician notified vc 21:57 Drug: morphine 4 mg Route: IVP; Site: left antecubital; vc 22:15 Follow up: Response: Pain is unchanged, physician notified vc 22:50 Drug: Dilaudid 1 mg Route: IVP; Rate: calculated rate; Infused Over: 30 mins; Site: left antecubital; 23:00 Follow up: Response: Pain is decreased 23:38 Drug: Dilaudid 1 mg Route: IVP; Rate: 250 ml/hr; Infused Over: 1 hrs; Site: left antecubital; 10/26 00:03 Follow up: Response: Medication administered at discharge. Disposition: 07:37 Co-signature as Attending Physician, Jp Silva MD I agree with the assessment and tw4 plan of care. Disposition: 10/25/19 22:37 Transfer ordered to [facility]. Diagnosis are Fall from moving wheelchair (powered), Displaced comminuted fracture of shaft of left femur - distal femur, Displaced comminuted fracture of shaft of right femur - distal femur. - Reason for transfer: Higher level of care. - Accepting physician is DR Kiko Gill. - Condition is Stable. - Problem is new. - Symptoms have improved. Signatures: Dispatcher [employer] Mara Zhang RN RN ss Page, Corey, PA PA cp Yumiko Wells RN RN ea Wadley, Terrence, MD MD 4 Hetal Gomez RN RN Corrections: (The following items were deleted from the chart) 10/25 23:39 22:37 10/25/2019 22:37 Transfer ordered to [facility]. Diagnosis is Fall from moving wheelchair (powered); Displaced comminuted fracture of shaft of left femur - distal femur; Displaced comminuted fracture of shaft of right femur - distal femur. Reason for transfer: Higher level of care. Accepting physician is DR Kiko Gill. Condition is Stable. Problem is new. Symptoms have improved. cp
[2019-10-25] MEDS ORDERED: NA CHLORIDE 0.9% 250 ML ONE (23:24)
[2019-10-26 00:20] VITALS: BP 128/84; TEMP 98.8; O2SAT 97
== END 2019-10-25 23:39 | disposition short-term general hospital (02) ==
LOC: ER 16:35
DX: S72.351A Displaced comminuted fracture of shaft of right femur, initial encounter for closed fracture (principal); S72.352A Displaced comminuted fracture of shaft of left femur, initial encounter for closed fracture; V00.811A Fall from moving wheelchair (powered), initial encounter; F17.210 Nicotine dependence, cigarettes, uncomplicated; G35 Multiple sclerosis; Z88.0 Allergy status to penicillin; Z88.1 Allergy status to other antibiotic agents; Z88.2 Allergy status to sulfonamides
CPT/HCPCS: 96361; 85025; 80048; 36415; 86900; 86850; 85610; 86901; 85730; 70450; 72125; 71260; 74177; 71045; 72170; 73552 ×2; 73590; 96375; 96374; 99285; Q9967; J3010 ×3; J1170 ×2; J7030 ×2; J2405

== ENCOUNTER 2022-09-09 05:28 | Emergency (ER) | payer OTHER ==
--- OUTSIDE RECORDS SUMMARY | 2022-09-09 05:32 | XMS REPORT | Continuity of Care Document ---
:1960 Author Organization [facility] t Address [address] [place] [address] Care Team Providers Name Role Phone BUTTSADELA Beavers Primary Care Physician Unavailable YEIMY BREWER Attending Clinician Unavailable Yeimy Brewer MD Attending Clinician KAIA ADRIAN Attending Clinician Unavailable YEIMY BREWER Admitting Clinician Unavailable KAIA ADRIAN Admitting Clinician Unavailable Payers Payer Name Policy Type Policy Number Effective Date Expiration Date S nguyễn MAHAJAN MEDICARE [id number] 2019 00:00:00 [employer] MEDICARE [id number] 2018 2019 ADV 00:00:00 00:00:00 Problems This patient has no known problems. Allergies, Adverse Reactions, Alerts Allergy Allergy Status Severity Reaction(s) Onset Inactive Treating Comm ents Source Name Type Date Date Clinician TETRACYC DRUG Active Hives 2020-0 Univers LINE INGREDI 2-20 ity of 00:00: [address] Branch SULFA Drug Active Hives 2020-0 Univers (SULFONA Class 2-10 ity of MIDE 00:00: [place] ANTIBIOT [address] [place] [address]) Branch ERYTHROM DRUG Active Hives 2020-0 Univers YCIN INGREDI 2-10 ity of BASE 00:00: [address] PENICILL DRUG Active Hives 2020-0 Univers IN G INGREDI 2-10 ity of 00:00: [place] 00 [facility] Erythrom Propensi Active Hives 2015-09 Method i ycin ty to 10-08 st adverse 00:00: Hospita reaction 00 l s to drug Other Propensi Active 2015-09 CHG- Methodi ty to 10-[address] adverse 00:00: skin Hospita reaction 00 l s [place] Propensi Active Hives 2015-09 Method i ins ty to 10-08 st adverse 00:00: Hospita reaction 00 l s to drug Sulfa Propensi Active Hives 2015-09 Methodi (Sulfona ty to 10-08 st mide adverse 00:00: Hospita Antibiot reaction 00 l ics) s to drug Tetracyc Propensi Active Hives 2015-09 Method i line ty to 10-08 st adverse 00:00: Hospita reaction 00 l s to drug PENICILL Drug Active Hives 2014- Univers INS Class 9-24 ity of 00:00: [place] 00 [facility] SULFA Drug Active Hives 2014-0 Univers (SULFONA Class 9-24 ity of MIDE 00:00: [place] ANTIBIOT 00 Medical ICS) Branch TETRACYC DRUG Active Hives 2014-0 Univers LINE INGREDI 9-24 ity of 00:00: [place] 00 [facility] ERYTHROM DRUG Active Hives 2014-0 Univers YCIN 9-24 ity of 00:00: [place] 00 [facility] NO KNOWN Drug Active Univers ALLERGIE Class ity of S [facility] Family History Family Member Diagnosis Comments Start Date Stop Date Source Natural father Cancer [facility] Natural father Heart disease [facility] Natural mother Diabetes [facility] Social History Social Habit Start Date Stop Date Quantity Comments Source History of tobacco Current smoker [facility] use Hospital Alcohol intake 2016-08-13 2016-08-13 Current Yazdanism 00:00:00 00:00:00 non-drinker of Hospital alcohol (finding) Cigarettes smoked 2016-08-08 2016-08-[address] current (pack per 00:00:00 00:00:00 Hospita l day) - Reported Cigarette 2016-08-08 2016-08-08 Yazdanism pack-years 00:00:00 00:00:00 Hospital Tobacco Comment 2016-08-08 2016-08-08 quit 2 weeks ago Met hodist 00:00:00 00:00:00 Hospital Sex Ass[birth year] At [birth year] Y[facility]danism 00:00:00 00:00:00 Hospital Smoking Status Start Date Stop Date Source Ex-smoker 2016-08-08 00:00:00 2016-08-08 00:00:00 [facility] Medications Ordered Filled Start Stop Current Ordering Indication Dosage Frequency Signature Comments Components Source Medication Medication Date Date Medication? Clinician (SIG) Name Name fentaNYL 2015-09 Yes 1{patch Q72H Place 1 Met hodi (DURAGESIC) - } patch on st 50 mcg/hr 20:41: the skin Hosp zenia 12 every l third day. Took off this morning diazepam 2015-09 Yes 10mg [id number] Take 10 mg Methodi (VALIUM) 5 10-08 [id number] by mouth 3 st MG tablet 20:41: 3D (three) Hospi ta 12 times a l day. clindamycin 2015-09 Yes 300mg Q6H Take 300 M ethodi (CLEOCIN) 1-[address] 300 MG 20:41: mouth Hospita capsule 12 every 6 l (six) hours. HYDROcodone 2015-09 Yes 1{tbl} Q6H Take 1 Me thodi -acetaminop 1-[address] (NORCO 20:41: mouth Hospit a 10-325) 12 every 6 l 10-325 mg (six) per tablet hours as needed for moderate pain. lansoprazol 2015-09 Yes 30mg QD Take 30 mg Methodi e -[address] (PREVACID) 20:41: daily. Hospi ta 30 MG 12 l capsule FLUoxetine 2015-09 Yes TAKE ONE Met hodi (PROzac) 20 1-17 (1) st MG capsule 00:00: CAPSULE BY H ospita 00 MOUTH ONCE l A DAY FOR 28 DAY(S). DULCOLAX, 2015-09 Yes UNWRAP AND Me thodi BISACODYL, 1- INSERT TWO st 10 mg 00:00: (2) Hospita suppository 00 SUPPOSITOR l IES RECTALLY DAILY NEEDED FOR CONSTIPATI ON. Procedures This patient has no known procedures. Plan of Care Planned Activity Planned Date Details Comments Source Future Scheduled 2022-09-08 COVID-19 VACCINE (#1) [facility] Test 02:01:54 [code = COVID-19 VACCINE (#1)] Future Scheduled 2022-09-08 Screening for [facility] Test 02:01:54 malignant neoplasm of cervix (procedure) [code = [id number]] Future Scheduled 2022-09-08 BREAST CANCER [facility] Test 02:01:54 SCREENING [code = BREAST CANCER SCREENING] Future Scheduled 2022-09-08 COLONOSCOPY SCREENING [facility] Test 02:01:54 [code = COLONOSCOPY SCREENING] Future Scheduled 2022-09-08 SHINGLES VACCINES (1 Met [facility] Test 02:01:54 of 2) [code = SHINGLES VACCINES (1 of 2)] Future Scheduled 2022-09-08 INFLUENZA VACCINE Method [facility] Test 02:01:54 [code = INFLUENZA VACCINE] Encounters Start End Encounter Admission Attending Care Care Encounter Source Date/Time Date/Time Type Type Clinicians Facility Department ID 2020-08-03 2020-08-03 [facility] [id number] Univers 14:15:00 14:15:00 [facility] 2020-07-20 2020-07-20 Out[facility] [id number] Univers 14:30:00 14:30:00 [facility] 2020-07-19 2020-07-19 [facility] [id number] Univers 12:35:58 23:59:00 [facility] 2020-07-19 2020-07-19 [facility] [id number] Univers 00:00:00 00:00:00 [facility] 2020-01-20 2020-01-20 Outpatient [facility] [id number] Univers 12:43:10 23:59:00 [facility] 2020-01-20 2020-01-20 [facility] [id number] 14:07:36 14:39:03 Visit [facility] [id number] Surgical [id number] Special [id number] [place] 2020-01-20 2020-01-20 Outpatient [facility] [id number] Univers 14:30:00 14:30:00 [facility] 2020-01-14 2020-01-14 Outpatient Kavita [facility] [id number] Univers 09:00:00 09:00:00 YEIMYSANJEEV zaragoza [facility] 2020-01-13 2020-01-13 Outpatient Kavita [facility] [id number] Univers 14:45:00 14:45:00 YEIMYSANJEEV zaragoza [facility] 2020-01-06 2020-01-06 Outpatient Kavita [facility] [id number] Univers 13:00:00 13:00:00 YEIMYSANJEEV zaragoza [facility] 2019-12-09 2019-12-09 Outpatient Kavita [facility] [id number] Univers 13:15:00 13:15:00 YEIMYSANJEEV zaragoza [facility] 2019-12-08 2019-12-08 Outpatient Kavita [facility] [id number] Univers 13:35:50 23:59:00 YEIMYSANJEEV zaragoza [facility] 2019-12-08 2019-12-08 Outpatient Kavita [facility] [id number] Univers 00:00:00 00:00:00 YEIMYSANJEEV zaragoza [facility] 2019-12-02 2019-12-02 Outpatient Kavita [facility] [id number] Univers 14:45:00 14:45:00 YEIMYSANJEEV zaragoza [facility] 2019-09-02 2019-09-02 Outpatient Kavtia [facility] [id number] Univers 14:22:42 23:59:00 YEIMY mauri [facility] 2019-09-02 2019-09-02 Outpatient Kavita [facility] [id number] Univers 13:15:00 13:48:00 [facility] Results Test Description Test Time Test Comments Results Result Comments Source Culture, Urine 2017-07-14 Specimen: 07:59:00 UrineCollected: 07/11/2017 07:30 Status: Final Last Updated: 07/14/2017 07:59 Isolate [...] 2017-07-11 08:31:00 Test Item Value Reference Range Interpretation Comme nts Color (test code = COLOR) Yellow Yellow,Straw,Pl yellow N Clarity (test code = CLAR) Sl Cloudy Clear A Specific Golden (test code = 1.025 1.001-1.035 N SPGR) pH (test code = PH) 5.0 5.0-9.0 N Ketone (test code = KET) 5 mg/dL Negative A Glucose (test code = GLUCUR) Negative mg/dL Negative N Protein (test code = PROT) 25 mg/dL Negative A Bilirubin (test code = BILI) Negative mg/dL Negative N Occult Blood (test code = UDOB) Large Negative A Urobilinogen (test code = UROB) 0.2 mg/dL 0.2-1.0 N Nitrite (test code = NIT) Positive Negative A Leuk Esterase (test code = LEUK) Large Negative A Micros Exam (test code = MEXAM) Indicated Epithelial Cells (test code = 6-9 /LPF 0-30 A EPI) WBC, Urine (test code = UWBC) 10-14 /HPF 0-5 A RBC, Urine (test code = URBC) 4-5 /HPF 0-5 A Bacteria (test code = BACT) Many /HPF Crystals (test code = DM) Few Calcium Oxalate /HPF CBC with [id number] 07:40:00 Test Item Value Reference Range Interpretation Comments WBC (test code = WBC) 7.0 K/cumm 4.4-10.5 N RBC (test code = RBC) 4.98 M/cumm 3.75-5.20 N Hemoglobin (test code = HGB) 15.2 gm/dL 12.2-14.8 H Hematocrit (test code = HCT) 47.2 % 36.5-44.4 H MCV (test code = MCV) 94.7 fL 80-100 N MCH (test code = MCH) 30.5 pg 27.0-32.5 N MCHC (test code = MCHC) 32.2 g/dL 32.0-37.5 N RDW (test code = RDW) 14.0 % 11.5-14.5 N Platelet Count (test code = 210 K/cumm 140-440 N PLTCT) MPV (test code = MPV) 6.6 fL Diff Method (test code = DIFFM) Auto Neutrophil (test code = NEUT) 48.1 % 36-70 N Lymphocyte (test code = LYMPH) 43.3 % 12-44 N Monocyte (test code = MONO) 6.0 % 0-11 N Eosinophil (test code = EOS) 2.1 % 0-7 N Basophil (test code = BASO) 0.5 % 0-2 N Neutro Abs (test code = ANEUT) 3.4 K/cumm 1.6-7.4 N Lymph Abs (test code = ALYMPH) 3.0 K/cumm 0.5-4.6 N Desha Abs (test code = AMONO) 0.4 K/cumm 0.0-1.2 N Eos Abs (test code = AEOS) 0.15 K/cumm 0.00-0.74 N Baso Abs (test code = ABASO) 0.0 K/cumm 0.00-0.21 N Culture, [id number] 09:11:00Specimen: UrineCollected: 06/17/2017 15:19 Status: Final Last Updated: 06/19/2017 09:11 Isolate (Final) (Final) 06/18/17 >100,000 CFU/mL Escherichia coli Amikacin <=16 Susceptible Ampicillin >16 Resistant Ampicillin/Sulb >16/8 Resistant Cefazolin <=8 Susceptible Cefepime <=4 Susceptible Cefotaxime <=2 Susceptible Ceftazidime <=1 Susceptible Ceftriaxone <=1 Susceptible Cefuroxime 8 Susceptible Ciprofloxacin >2 Resistant Gentamicin <=4 Susceptible Imipenem <=1 Susceptible Levofloxacin >4 Resistant Meropenem <=1 Susceptible Nitrofurantoin <=32 Susceptible Piperacillin/Tazo <=16 Susceptible Tobramycin <=4 Susceptible Trimethoprim/Sulfa <=2/38 SusceptibleUrinalysis [id number] 19:15:00 Test Item Value Reference Range Interpretation Comments Color (test code = COLOR) Yellow Yellow,Straw,Pl N yellow Clarity (test code = Clear Clear N CLAR) Specific Golden (test 1.010 1.001-1.035 N code = SPGR) pH (test code = PH) 7.0 5.0-9.0 N Ketone (test code = KET) Negative mg/dL Negative N Glucose (test code = Negative mg/dL Negative N GLUCUR) Protein (test code = Negative mg/dL Negative N PROT) Bilirubin (test code = Negative mg/dL Negative N BILI) Occult Blood (test code = Trace Negative A UDOB) Urobilinogen (test code = 0.2 mg/dL 0.2-1.0 N UROB) Nitrite (test code = NIT) Positive Negative A Leuk Esterase (test code Large Negative A = LEUK) Micros Exam (test code = Indicated MEXAM) Epithelial Cells (test 3-5 /LPF 0-30 A code = EPI) WBC, Urine (test code = 0-2 /HPF 0-5 A UWBC) RBC, Urine (test code = 0-1 /HPF 0-5 A URBC) Bacteria (test code = Moderate /HPF BACT) CBC with [id number] 16:49:00 Test Item Value Reference Range Interpretation Comments WBC (test code = WBC) 5.7 K/cumm 4.4-10.5 N RBC (test code = RBC) 5.47 M/cumm 3.75-5.20 H Hemoglobin (test code = HGB) 16.5 gm/dL 12.2-14.8 H Hematocrit (test code = HCT) 52.4 % 36.5-44.4 H MCV (test code = MCV) 95.9 fL 80-100 N MCH (test code = MCH) 30.2 pg 27.0-32.5 N MCHC (test code = MCHC) 31.5 g/dL 32.0-37.5 L RDW (test code = RDW) 14.2 % 11.5-14.5 N Platelet Count (test code = 190 K/cumm 140-440 N PLTCT) MPV (test code = MPV) 7.5 fL Diff Method (test code = DIFFM) Auto Neutrophil (test code = NEUT) 61.6 % 36-70 N Lymphocyte (test code = LYMPH) 30.5 % 12-44 N Monocyte (test code = MONO) 6.2 % 0-11 N Eosinophil (test code = EOS) 1.0 % 0-7 N Basophil (test code = BASO) 0.6 % 0-2 N Neutro Abs (test code = ANEUT) 3.5 K/cumm 1.6-7.4 N Lymph Abs (test code = ALYMPH) 1.7 K/cumm 0.5-4.6 N Desha Abs (test code = AMONO) 0.4 K/cumm 0.0-1.2 N Eos Abs (test code = AEOS) 0.06 K/cumm 0.00-0.74 N Baso Abs (test code = ABASO) 0.0 K/cumm 0.00-0.21 N
[2022-09-09] MEDS ORDERED: MORPHINE 4 MG/ML SYR ONE ×2 (05:52→08:17)
[2022-09-09] MEDS ORDERED: ONDANSETRON 4 MG/2 ML VIAL ONE (05:53)
[2022-09-09] MEDS ORDERED: GABAPENTIN 300 MG CAP ONE (05:53)
--- NOTE | 2022-09-09 06:50 | ER ---
Nurse's Notes [facility] Name: Abimbola Erazo Age: 62 yrs Sex: Female : 1960 Arrival Date: 09/09/2022 Time: 05:33 Bed 15 Private MD: Diagnosis: Pain in left wrist Presentation: 09/09 05:30 Chief complaint: Patient states: Patient C/O left arm/left wrist pain of 10,onset 2 pf1 hours ago. Patient denies any injury. Patient stated the last time she had this type of pain was due to her carpal tunnel syndrome. 05:30 Coronavirus screen: Client denies travel out of the [place] in the last 14 days. At this pf1 time, the client does not indicate any symptoms associated with coronavirus-19. Ebola Screen: Patient negative for fever greater than or equal to 101.5 degrees Fahrenheit, and additional compatible Ebola Virus Disease symptoms. Initial Sepsis Screen: Does the patient meet any 2 criteria? No. Patient's initial sepsis screen is negative. Does the patient have a suspected source of infection? No. Patient's initial sepsis screen is negative. Risk Assessment: Do you want to hurt yourself or someone else? Patient reports no desire to harm self or others. Onset of symptoms was September 09, 2022 at 03:30. Care prior to arrival: Medication(s) given: Toradol 15mg given IVP per EMS and [place] 7.5mg/325mg per patient's own medication. 05:30 Method Of Arrival: EMS: [facility] pf1 05:30 Acuity: LILIANA 3 pf1 05:30 Acuity: LILIANA 3 pf1 Historical: - Allergies: 06:22 Erythromycin; pf1 06:22 PENICILLINS; pf1 06:22 Sulfa (Sulfonamide Antibiotics); pf1 06:22 TETRACYCLINES; pf1 - PMHx: 06:25 Multiple sclerosis; Hypertensive disorder; acid reflux; suprapubic catheter; pf1 - PSHx: 06:25 suprapubic catheter; pf1 - Immunization history:: Adult Immunizations not up to date, Client reports having NOT received the Covid vaccine. - Social history:: Smoking status: Patient reports the use of cigarette tobacco products, denies chronic smoking, but will smoke occasionally, Patient uses street drugs, marijuana. - Family history:: not pertinent. Screenin:30 [facility] ED Fall Risk Assessment (Adult) History of falling in the last 3 months, pf1 including since admission No falls in past 3 months (0 pts) Confusion or Disorientation No (0 pts) Intoxicated or Sedated No (0 pts) Impaired Gait Yes (1 pt) Mobility Assist Device Used No (0 pt) Altered Elimination Yes (1 pt) Score/Fall Risk Level 0 - 2 = Low Risk Oriented to surroundings, Maintained a safe environment, Educated pt \T\ family on fall prevention, incl call for assistance when getting out of bed, Assessed \T\ reinforced patient's understanding of fall precautions, Provided non-skid footwear, Hourly rounding (assess needs \T\ fall precautionary measures) done, Used ambulatory aids as needed (educated on \T\ assisted with), Used gait belt as appropriate. 05:30 Abuse screen: Denies threats or abuse. Nutritional screening: No deficits noted. pf1 Tuberculosis screening: No symptoms or risk factors identified. Assessment: 05:30 General: Appears uncomfortable, obese, unkempt, well developed, Behavior is pf1 cooperative, appropriate for age, anxious. 05:30 Pain: Complains of pain in left arm and left wrist Pain currently is 10 out of 10 on a pf1 pain scale. Pain began 2 hours ago. Neuro: No deficits noted. Level of Consciousness is awake, alert, obeys commands, Oriented to person, place, time, situation. Cardiovascular: No deficits noted. Respiratory: No deficits noted. Airway is patent Respiratory effort is even, unlabored, Respiratory pattern is regular, symmetrical, Breath sounds are clear bilaterally. GI: No deficits noted. No signs and/or symptoms were reported involving the gastrointestinal system. : No deficits noted. No signs and/or symptoms were reported regarding the genitourinary system. EENT: No deficits noted. No signs and/or symptoms were reported regarding the EENT system. Derm: No deficits noted. No signs and/or symptoms reported regarding the dermatologic system. Musculoskeletal: Reports pain in left wrist. Patient denies any injury. 06:36 General: Patient's Son- Jose [phone], to call for a ride upon discharge. pf1 07:45 Reassessment: Patient appears in no apparent distress at this time. Patient and/or hb family updated on plan of care and expected duration. Pain level reassessed. Patient is alert, oriented x 3, equal unlabored respirations, skin warm/dry/pink. 07:45 Reassessment: Awaiting EMS for transport home. hb 08:24 Reassessment: Pt moaning continuously, c/o left hand pain 10/10. Dr. Ibarra notified, hb medicated as ordered. VS WNL. Awaiting transport at this time.s. Vital Signs: 05:30 BP 145 / 91; Pulse 89; Resp 18; Temp 97.9; Pulse Ox 99% ; Weight 86.18 kg; Height 5 ft. pf1 8 in. (172.72 cm); Pain 10/10; 06:00 BP 134 / 90; Pulse 91; Resp 18; Pulse Ox 96% on R/A; pf1 06:28 BP 141 / 96; Pulse 96; Resp 18; Pulse Ox 95% ; Pain 10/10; pf1 07:15 BP 127 / 94; Pulse 88; Resp 18; Temp 98; Pulse Ox 95% on R/A; Pain 9/10; hb 08:24 BP 126 / 90; Pulse 54; Resp 16; Pulse Ox 99% on R/A; Pain 10/10; hb 05:30 Body Mass Index 28.89 (86.18 kg, 172.72 cm) pf1 ED Course: 05:30 Patient has correct armband on for positive identification. Placed in gown. Bed in low pf1 position. Call light in reach. Side rails up X2. Door closed. Warm blanket given. 05:30 Arm band placed on right wrist. hb 05:30 No provider procedures requiring assistance completed. Maintain EMS IV. Dressing pf1 intact. Good blood return noted. Site clean \T\ dry. Gauge \T\ site: 18 gauge. 05:33 Patient arrived in ED. wm 05:37 iNck Toussaint MD is Attending Physician. rt 05:41 Paula neri, MIRIAM is Primary Nurse. pf1 05:47 Triage completed. pf1 06:05 Wrist Left (3 View) XRAY In Process Unspecified. EDMS 07:28 IV discontinued, intact, bleeding controlled, No redness/swelling at site. Pressure hb dressing applied. Administered Medications: 05:50 Drug: morphine 4 mg Route: IVP; Infused Over: 4 mins; Site: right forearm; pf1 06:28 Follow up: Response: No adverse reaction; Pain is unchanged, physician notified; RASS: pf1 Alert and Calm (0) 05:50 Drug: Zofran (Ondansetron) 4 mg Route: IVP; Site: right forearm; pf1 06:28 Follow up: Response: No adverse reaction; Marked relief of symptoms pf1 05:50 Drug: Gabapentin 300 mg Route: PO; pf1 06:27 Follow up: Response: No change in condition; Pain is unchanged, physician notified; pf1 RASS: Alert and Calm (0) 08:09 CANCELLED (dr de la o): morphine 10 mg IM once tw5 08:09 CANCELLED (dr de la o): Decadron (dexamethasone) 10 mg IM once tw5 08:09 CANCELLED (dr rich): Phenergan (promethazine) 25 mg IM once tw5 08:23 Drug: Decadron (dexamethasone) 10 mg Route: IM; Site: right deltoid; hb 09:09 Follow up: Response: No adverse reaction hb 08:24 Drug: morphine 10 mg Route: IM; Site: left deltoid; hb 09:09 Follow up: Response: No adverse reaction hb 08:24 Drug: Phenergan (promethazine) 25 mg Route: IM; Site: right deltoid; hb 09:09 Follow up: Response: No adverse reaction hb Medication: 06:06 VIS not applicable for this client. pf1 Outcome: 06:50 Discharge ordered by MD. rt 07:31 Discharged to home via ambulance, Ambulance ETA 15 minutes hb 07:31 Condition: stable 07:31 Discharge instructions given to patient, Instructed on discharge instructions, follow up and referral plans. medication usage, Demonstrated understanding of instructions, follow-up care, medications, Prescriptions given X 1. 09:11 Patient left the ED. kj1 Signatures: Dispatcher [employer] EDMS Karrie Will RN Shahana Rodriguez kj1 Vandana Mina Ryan, MD MD rt Paula neri RN RN pf1 Bea Weinstein tw5 Corrections: (The following items were deleted from the chart) 06: 06:22 PMHx: MS; pf1 pf1 06:27 06:22 PMHx: back problems; pf1 pf1
--- NOTE | 2022-09-09 06:50 | EDPHYS ---
Physician Documentation [facility] Name: Abimbola Erazo Age: 62 yrs Sex: Female : 1960 Arrival Date: 09/09/2022 Time: 05:33 Bed 15 Private MD: ED Physician Nick Toussaint HPI: 09/09 05:49 This 62 yrs old Female presents to ER via EMS with complaints of Arm Pain - Left. rt 05:49 The patient or guardian complains of pain. The complaints affect the left wrist. Onset: rt The symptoms/episode began/occurred 2 hour(s) ago. Treatment prior to arrival includes: 15 mg toradol. Associated signs and symptoms: The patient has no apparent associated signs or symptoms. Severity of symptoms: At their worst the symptoms were moderate. Presents to the ED with an acute onset of a left arm pain starting about 2 hours prior to arrival. Patient reports is a burning sensation. States that initially involved all of her arm, then progressed to involve the wrist. Patient states that this is similar to when she had carpal tunnel on the other side, but states that is more intense this time. The patient denies any injury, other acute complaints at this time. Symptoms are moderate in severity, no other aggravating alleviating factors. Pain is nonradiating.. Historical: - Allergies: 06:22 Erythromycin; pf1 06:22 PENICILLINS; pf1 06:22 Sulfa (Sulfonamide Antibiotics); pf1 06:22 TETRACYCLINES; pf1 - PMHx: 06:25 Multiple sclerosis; Hypertensive disorder; acid reflux; suprapubic catheter; pf1 - PSHx: 06:25 suprapubic catheter; pf1 - Immunization history:: Adult Immunizations not up to date, Client reports having NOT received the Covid vaccine. - Social history:: Smoking status: Patient reports the use of cigarette tobacco products, denies chronic smoking, but will smoke occasionally, Patient uses street drugs, marijuana. - Family history:: not pertinent. ROS: 05:49 Constitutional: Negative for fever, chills, and weight loss, Eyes: Negative for injury, rt pain, redness, and discharge, ENT: Negative for injury, pain, and discharge, Cardiovascular: Negative for chest pain, palpitations, and edema, Respiratory: Negative for shortness of breath, cough, wheezing, and pleuritic chest pain, Abdomen/GI: ' Skin: Negative for injury, rash, and discoloration, Neuro: Negative for headache, weakness, numbness, tingling, and seizure, Psych: Negative for depression, anxiety, suicide ideation, homicidal ideation, and hallucinations. 05:49 MS/extremity: Positive for pain, Negative for injury or acute deformity. Exam: 05:49 Constitutional: This is a well developed, well nourished patient who is awake, alert, rt and in no acute distress. Head/Face: Normocephalic, atraumatic. Neck: Trachea midline, no thyromegaly or masses palpated, and no cervical lymphadenopathy. Supple, full range of motion without nuchal rigidity, or vertebral point tenderness. No Meningismus. Chest/axilla: Normal chest wall appearance and motion. Nontender with no deformity. No lesions are appreciated. Cardiovascular: Regular rate and rhythm with a normal S1 and S2. No gallops, murmurs, or rubs. Normal PMI, no JVD. No pulse deficits. Respiratory: Lungs have equal breath sounds bilaterally, clear to auscultation and percussion. No rales, rhonchi or wheezes noted. No increased work of breathing, no retractions or nasal flaring. Abdomen/GI: Soft, non-tender, with normal bowel sounds. No distension or tympany. No guarding or rebound. No evidence of tenderness throughout. Skin: Warm, dry with normal turgor. Normal color with no rashes, no lesions, and no evidence of cellulitis. Neuro: Awake and alert, GCS 15, oriented to person, place, time, and situation. Cranial nerves II-XII grossly intact. Motor strength 5/5 in all extremities. Sensory grossly intact. Cerebellar exam normal. Normal gait. Psych: Awake, alert, with orientation to person, place and time. Behavior, mood, and affect are within normal limits. 05:49 Musculoskeletal/extremity: Tenderness at the anterior aspect of the wrist, no deformities noted, pulses, motor, sensation are intact.. Vital Signs: 05:30 BP 145 / 91; Pulse 89; Resp 18; Temp 97.9; Pulse Ox 99% ; Weight 86.18 kg; Height 5 ft. pf1 8 in. (172.72 cm); Pain 10/10; 06:00 BP 134 / 90; Pulse 91; Resp 18; Pulse Ox 96% on R/A; pf1 06:28 BP 141 / 96; Pulse 96; Resp 18; Pulse Ox 95% ; Pain 10/10; pf1 07:15 BP 127 / 94; Pulse 88; Resp 18; Temp 98; Pulse Ox 95% on R/A; Pain 9/10; hb 08:24 BP 126 / 90; Pulse 54; Resp 16; Pulse Ox 99% on R/A; Pain 10/10; hb 05:30 Body Mass Index 28.89 (86.18 kg, 172.72 cm) pf1 MDM: 05:38 Patient medically screened. rt 06:51 Differential diagnosis: ClaudicationNeuropathic pain, carpal tunnel, arthritis. Data rt reviewed: vital signs, nurses notes, radiologic studies. ED course: Presents to the ED with a burning left wrist pain. There is good pulses, do not suspect an acute arterial occlusion. Compartments are soft, do not suspect compartment syndrome. There are no overlying skin changes. I do not suspect a septic arthritis, cellulitis, DVT. Patient is in the ED. SOCIAL WORKER was reviewed, patient receives chronic fentanyl patches and hydrocodone. Will not represcribe patient opiate medications. We will start patient on gabapentin for neuropathic pain. No further work-up is indicated at this time, patient is stable for outpatient care.. 09/09 05:42 Order name: Wrist Left (3 View) XRAY rt Administered Medications: 05:50 Drug: morphine 4 mg Route: IVP; Infused Over: 4 mins; Site: right forearm; pf1 06:28 Follow up: Response: No adverse reaction; Pain is unchanged, physician notified; RASS: pf1 Alert and Calm (0) 05:50 Drug: Zofran (Ondansetron) 4 mg Route: IVP; Site: right forearm; pf1 06:28 Follow up: Response: No adverse reaction; Marked relief of symptoms pf1 05:50 Drug: Gabapentin 300 mg Route: PO; pf1 06:27 Follow up: Response: No change in condition; Pain is unchanged, physician notified; pf1 RASS: Alert and Calm (0) 08:09 CANCELLED (dr de la o): morphine 10 mg IM once tw5 08:09 CANCELLED (dr de la o): Decadron (dexamethasone) 10 mg IM once tw5 08:09 CANCELLED (dr rich): Phenergan (promethazine) 25 mg IM once tw 08:23 Drug: Decadron (dexamethasone) 10 mg Route: IM; Site: right deltoid; hb 09:09 Follow up: Response: No adverse reaction hb 08:24 Drug: morphine 10 mg Route: IM; Site: left deltoid; hb 09:09 Follow up: Response: No adverse reaction hb 08:24 Drug: Phenergan (promethazine) 25 mg Route: IM; Site: right deltoid; hb 09:09 Follow up: Response: No adverse reaction hb Disposition Summary: 09/09/22 06:50 Discharge Ordered Location: Home rt Problem: new rt Symptoms: have improved rt Condition: Stable rt Diagnosis - Pain in left wrist rt Followup: rt - With: Private Physician - When: 2 - 3 days - Reason: Discharge Instructions: - Discharge Summary Sheet rt - Joint Pain rt - Neuropathic Pain rt Forms: - Medication Reconciliation Form rt - Thank You Letter rt - Antibiotic Education rt - Prescription Opioid Use rt Prescriptions: - GABAPENTIN 100 MG TAB - take 1 tablet by ORAL route 3 times per day; 30 tablet; Refills: 0, Product rt Selection Permitted Signatures: Dispatcher [employer] EDKarrie Macias RN RN Bea Weinstein Nick Toussaint MD MD rt Paula neri RN RN pf1 Corrections: (The following items were deleted from the chart) 06:27 06:22 PMHx: MS; pf1 pf1 06:27 06:22 PMHx: back problems; pf1 pf1 08:09 08:08 morphine 10 mg IM once ordered. tw 08:09 08:08 Decadron (dexamethasone) 10 mg IM once ordered. 08:09 08:08 Phenergan (promethazine) 25 mg IM once ordered.
[2022-09-09] MEDS ORDERED: PROMETHAZINE INJ 25 MG/ML AMP ONE (08:16)
[2022-09-09] MEDS ORDERED: MORPHINE 2 MG/ML SYR ONE (08:17)
[2022-09-09] MEDS ORDERED: dexAMETHasone 10 MG/ML VIAL ONE (08:17)
[2022-09-09 09:20] VITALS: TEMP 98
[2022-09-09 09:21] VITALS: BP 126/90; O2SAT 99
--- NOTE | 2022-09-09 16:08 | RAD REPORT ---
EXAM DESCRIPTION: Wrist Left 3 View CLINICAL HISTORY: 62 years Female PAIN TECHNIQUE: Three x-ray views of the left wrist were performed on 09/09/2022 at 5:59 AM. COMPARISON: None FINDINGS: There is no evidence of fracture or dislocation. There is no significant arthritis or sign ificant degenerative changes. Minimal degenerative changes are identified throughout the visualized p ortions of the left hand and wrist.. No focal lytic or sclerotic bone lesions are seen. Bone mineralization is normal. No acute soft tissue abnormalities are identified. IMPRESSION: No evidence of acute osseous injury involving the left wrist. Minimal degenerative graves es are identified throughout the visualized portions of the left hand and wrist. Electronically signed by: Sabra Castillo DO 09/09/2022 6:25 AM FIBERGLASS TECHNICIAN Due to temporary technical issues with the PACS/Fluency reporting system, reports are being signed by the in house radiologists without review as a courtesy to insure prompt reporting. The interpreting radiologist is fully responsible for the content of the report.
== END 2022-09-09 09:11 | disposition home or self-care (01) ==
LOC: ER 05:28
DX: M25.532 Pain in left wrist (principal)
CPT/HCPCS: 73110; J2550; J1100; J2270; J2405; 96372; 96374; 96375; 99284

== ENCOUNTER 2024-09-10 12:53 | Emergency (ER) | payer OTHER ==
[2024-09-10] MEDS ORDERED: NALOXONE HCL 2 MG/2 ML VIAL ONE (12:58)
[2024-09-10 13:34] LABS: Absolute Lymphocytes (CBC) 0.5 K/uL (0.7-4.9); Absolute Monocytes 0.1 K/uL (0.1-1.3); Basophils % 0.1 % (0-1.3); Hematocrit 49.9 % (36.0-45.0); Hemoglobin 15.5 g/dL (12.0-15.0); Lymphocytes % 6.3 % (15.3-44.8); MCH 30.5 pg (27.0-35.0); MCV 98.4 fL (80-100); MPV 7.3 fL (7.6-11.3); Monocytes % 1.9 % (3.3-12.3); Neutrophils % 91.7 % (41.7-73.7); Platelets 252 thou/uL (152-406); RBC Red Blood Cell Count 5.07 M/uL (3.86-4.86); Red Cell Distribution Width 15.6 % (12.1-15.2)
[2024-09-10] MEDS ORDERED: propofoL 1,000 MG/100 ML VIAL IV ONE (13:41)
[2024-09-10 13:44] LABS: PT Prothrombin Time 11.3 SECONDS (9.4-12.5); PTT, Activated Partial Thromb 28.5 SECONDS (24.3-36.9); Protime INR 1.01
[2024-09-10] MEDS ORDERED: VANCOMYCIN 1 GM/VIAL ONE (13:54)
[2024-09-10] MEDS ORDERED: CEFEPIME 1 GM/VIAL ONE (13:55)
[2024-09-10] MEDS ORDERED: NA CHLORIDE 0.9% 1,000 ML ONE (13:55)
[2024-09-10] MEDS ORDERED: NA CHLORIDE 0.9% 250 ML ONE (13:55)
[2024-09-10] MEDS ORDERED: NA CHLORIDE 0.9% 100 ML ONE (13:55)
--- NOTE | 2024-09-10 14:33 | ER ---
Nurse's Notes [facility] Name: Abimbola Erazo Age: 64 yrs Sex: Female : 1960 Arrival Date: 09/10/2024 Time: 12:53 Bed 4 Private MD: Diagnosis: Acute respiratory failure with hypoxia;Severe sepsis without septic shock;Lactic Acidosis;Unspecified bacterial pneumonia Presentation: 09/10 13:01 Chief complaint: EMS states: family called states patient has been more lethargic over ko1 past few days, more today with decreased respiration, sats were in the 40's on arrival. Coronavirus screen: At this time, the client does not indicate any symptoms associated with coronavirus-19. Ebola Screen: No symptoms or risks identified at this time. Initial Sepsis Screen: Does the patient meet any 2 criteria? No. Patient's initial sepsis screen is negative. Does the patient have a suspected source of infection? No. Patient's initial sepsis screen is negative. Risk Assessment: Do you want to hurt yourself or someone else? Patient reports no desire to harm self or others. Onset of symptoms was September 10, 2024. Care prior to arrival: Medication(s) given: Normal saline infusion, 1000 mL, narcan IV initiated. 20 GA, in the right wrist, Oxygen administered. via a non-rebreather mask. 13:01 Method Of Arrival: EMS: [facility] ko1 13:01 Acuity: LILIANA 2 ko1 Historical: - Allergies: 13:05 Erythromycin; ko1 13:05 PENICILLINS; ko1 13:05 Sulfa (Sulfonamide Antibiotics); ko1 13:05 TETRACYCLINES; ko1 - PMHx: 13:05 acid reflux; Multiple Sclerosis; Hypertensive disorder; Suprapubic catheter; ko1 - PSHx: 13:05 Suprapubic catheter; ko1 - Immunization history:: Adult Immunizations unknown. - Infectious Disease History:: Denies. - Social history:: Smoking status: unknown. Screenin:59 [facility] ED Fall Risk Assessment (Adult) History of falling in the last 3 months, ld1 including since admission No falls in past 3 months (0 pts) Confusion or Disorientation No (0 pts) Intoxicated or Sedated No (0 pts) Impaired Gait No (0 pts) Mobility Assist Device Used No (0 pt) Altered Elimination No (0 pt) Score/Fall Risk Level 0 - 2 = Low Risk Oriented to surroundings, Maintained a safe environment, Educated pt \T\ family on fall prevention, incl call for assistance when getting out of bed, Assessed \T\ reinforced patient's understanding of fall precautions, Provided non-skid footwear, Hourly rounding (assess needs \T\ fall precautionary measures) done, Used ambulatory aids as needed (educated on \T\ assisted with), Used gait belt as appropriate. Abuse screen: Denies threats or abuse. Denies injuries from another. Nutritional screening: No deficits noted. Tuberculosis screening: No symptoms or risk factors identified. Assessment: 13:04 Reassessment: Received patient via EMS - pt placed on non rebreather. RT called upon ld1 arrival. ERP at bedside for intubation at this time. 13:10 General: Appears in no apparent distress. comfortable, Behavior is calm, cooperative, ld1 appropriate for age. Pain: Unable to use pain scale. Patient is disoriented. Neuro: Level of Consciousness is unresponsive, Oriented to none. Cardiovascular: Capillary refill < 3 seconds Patient's skin is warm and dry. Respiratory: Airway is compromised via oral intubation Respiratory effort is labored, gasping, Ventilator assessment: ET Tube: 7.5 23 cm at lip. HOB > 30 degrees. the patient has severe shortness of breath. 13:10 GI: Abdomen is round non-distended. : suprapubic catheter in place Urine is tea ld1 colored. EENT: No signs and/or symptoms were reported regarding the EENT system. Derm: No signs and/or symptoms reported regarding the dermatologic system. Musculoskeletal: No signs and/or symptoms reported regarding the musculoskeletal system. 13:25 General: DR. ROGERS SPEAKING WITH PATIENT'S SON AT THIS TIME. PT'S SON CONSENTS TO cm10 CENTRAL LINE IF NEEDED. ARSEN REID [phone].. 15:08 Reassessment: No changes from previously documented assessment. Patient states symptoms ld1 have not improved. 17:22 Reassessment: No changes from previously documented assessment. Patient and/or family ld1 updated on plan of care and expected duration. Pain level reassessed. Patient states symptoms have not improved. Pt remains intubated at this time. . Vital Signs: 13:01 BP 126 / 80; Pulse 105; Resp 14; Temp 98; Pulse Ox 92% on 10 lpm Non-rebreather mask; ko1 13:33 BP 131 / 108; Pulse 124; Resp 14; Pulse Ox 83% ; FiO2 100 %; ld1 13:48 Weight 86.18 kg; ty 14:00 BP 103 / 70; Pulse 113; Resp 18; Pulse Ox 95% on ETT vent; ld1 14:06 Pulse 113; ec2 14:15 BP 118 / 103; Pulse 101; Pulse Ox 98% on ETT vent; ld1 14:20 BP 103 / 70; Pulse 101; Pulse Ox 98% ; ec2 14:30 BP 121 / 94; Pulse 94; Pulse Ox 100% on ETT vent; ld1 14:30 BP 104 / 79; Pulse 97; ec2 14:50 BP 122 / 87; Pulse 91; ec2 14:56 Pulse 89; ec2 14:57 BP 122 / 87; Pulse 85; Resp 18; Pulse Ox 100% on ETT vent; ld1 15:41 BP 122 / 91; Pulse 84; ec2 17:16 BP 112 / 85; Pulse 85; Resp 15; Pulse Ox 97% on ETT vent; ld1 17:22 BP 112 / 85; Pulse 85; Resp 15; Pulse Ox 97% on ETT vent; ld1 18:07 BP 112 / 85; Pulse 95; Resp 18; Pulse Ox 97% on ETT vent; ld1 13:33 Called RT at this time. ld1 ED Course: 12:55 Patient arrived in ED. ko1 12:58 Dereck Rogers MD is Attending Physician. ec2 13:05 Triage completed. ko1 13:10 Assisted provider with intubation using 7.5 mm ETT via oral route. ET tube secured at ld1 lips. Intubated by Dereck Rogers MD Placement verified by CO2 detector w/ + color change, CXR, Patient tolerated. NGT: inserted 18 Fr. via left nare. verified return of gastric contents, Placement verified by X-ray, to intermittent suction. Returned gastric contents. Patient tolerated well. 13:10 Inserted saline lock: 20 gauge in left antecubital area, using aseptic technique. Blood ld1 collected. Flushed with 10 mL NS. 13:26 Evelin Graf RN is Primary Nurse. ld1 13:27 Blood Culture Adult (2) Sent. ld1 13:27 Lactate w/ 2H reflex if indic. Sent. ld1 13:35 EKG done, by bioinformatics research technician. reviewed by Dereck Rogers MD. oh1 14:32 Chest Single View XRAY In Process Unspecified. EDMS 14:48 Blood Culture Adult (2) Sent. ld1 14:48 SARS RAPID Sent. ld1 14:48 Influenza Screen (a \T\ B) Sent. ld1 14:49 CBC with Diff Sent. ld1 14:49 CMP Sent. ld1 15:15 [facility] TC called to initiate transfer to [place], spoke with Abiola. ty 15:24 All [facility] facilities able to take ICU are at capacity. ty 15:26 [facility] called to initiate patient transfer, phone rang until call disconnected. ty 15:26 [facility] called to initiate transfer, transfer center will attempt [facility] as other facilities are at capacity. 18:22 [facility] called patient transfer. ty 18:34 report attempt. ty 18:36 report attempted. ty 18:40 TC called for escalation. ty 18:59 Patient transferred, IV remains in place. ld1 18:59 Patient has correct armband on for positive identification. Placed in gown. Bed in low ld1 position. Call light in reach. Side rails up X2. monitor technician on. Pulse ox on. NIBP on. Door closed. Noise minimized. Warm blanket given. 19:01 Arm band placed on right wrist. ld1 Administered Medications: 13:01 Drug: Naloxone IVP 2 mg IVP once Route: IVP; Site: right wrist; ld1 13:02 Follow up: Response: No adverse reaction ld1 13:40 Drug: NS 0.9% IV 1000 ml IV at 1 bolus Per protocol; to be given as a bolus over 60 ld1 minutes Route: IV; Rate: 1 bolus; Site: left antecubital; 17:26 Follow up: IV Status: Infusion continued; IV Intake: 1000ml ld1 13:40 Drug: Propofol IV 5 mcg/kg/min IV at calculated rate See Administration Instructions; ld1 Standard concentration 1000 mg / 100 mL; Recommended max rate 50 mcg/kg/min; Titrate 5 mcg/kg/min every 5 minutes to achieve goal (see titration policy); Goal parameter RASS score 0 to -2 Route: IV; Rate: calculated rate; Site: left antecubital; 13:45 Follow up: Response: No adverse reaction; Rate change 10 mcg/kg/min; IV Status: ld1 Infusion continued 13:50 Follow up: Rate change 15 mcg/kg/min; IV Status: Infusion continued ld1 13:55 Follow up: Rate change 20 mcg/kg/min; IV Status: Infusion continued ld1 14:01 Drug: Cefepime IVPB 1 grams IVPB at 200 ml/hr once over 30 mins; (mix in NS 100 mL) ld1 Route: IVPB; Rate: 200 ml/hr; Infused Over: 30 mins; Site: left antecubital; 14:15 Follow up: Response: No adverse reaction ld1 14:47 Drug: NS 0.9% IV 2000 ml IV at 2 bolus Per protocol; to be given as a bolus over 60 ld1 minutes Route: IV; Rate: 2 bolus; Site: left antecubital; 17:23 Follow up: Response: No adverse reaction; IV Status: Completed infusion; IV Intake: ld1 2000ml 14:48 Drug: vancoMYCIN IVPB 1 grams IVPB once over 2 hrs Route: IVPB; Infused Over: 2 hrs; ld1 Site: left antecubital; 17:27 Follow up: Response: No adverse reaction; IV Status: Completed infusion; IV Intake: ld1 250ml Medication: 18:59 VIS not applicable for this client. ld1 Intake: 17:23 IV: 2000ml; Total: 2000ml. ld1 17:26 IV: 1000ml; Total: 3000ml. ld1 17:27 IV: 250ml; Total: 3250ml. ld1 Outcome: 14:33 ER care complete, transfer ordered by . ec2 19:00 Transferred by ground EMS to [facility], ld1 19:00 Condition: unchanged 19:00 Instructed on the need for transfer, 19:01 Patient left the ED. ld1 Signatures: Dispatcher [employer] EDEvelin Marinelli RN RN ld1 Bety Monge RN RN Vanna Hannah RN RN cm10 Dereck Rogers MD MD ec2 Matt Krishnan Olivia oh1 Corrections: (The following items were deleted from the chart) 15:38 15:26 TC called to initiate transfer ty ty 18:07 17:16 BP 112 / 85; Pulse 85bpm; Resp 15bpm; Pulse Ox 97%; ko1 ld1 18:07 17:22 BP 112 / 85; Pulse 85bpm; Resp 15bpm; Pulse Ox 97% RA; ld1 ld1
--- NOTE | 2024-09-10 14:34 | EDPHYS ---
Physician Documentation [facility] Name: Abimbola Erazo Age: 64 yrs Sex: Female : 1960 Arrival Date: 09/10/2024 Time: 12:53 Bed 4 Private MD: ED Physician Dereck Rogers HPI: 09/10 13:15 This 64 yrs old Female presents to ER via EMS with complaints of Altered ec2 Mental Status, Respiratory Distress. 13:15 Patient arrives today due to concern for unresponsiveness. Patient with history of ec2 hypertension and multiple sclerosis, EMS reports that they found her unresponsive, cyanotic and in respiratory distress. Patient is unresponsive and unable to provide any significant history. Fentanyl patch found on patient and removed.. Historical: - Allergies: 13:05 Erythromycin; ko1 13:05 PENICILLINS; ko1 13:05 Sulfa (Sulfonamide Antibiotics); ko1 13:05 TETRACYCLINES; ko1 - PMHx: 13:05 acid reflux; Multiple Sclerosis; Hypertensive disorder; Suprapubic catheter; ko1 - PSHx: 13:05 Suprapubic catheter; ko1 - Immunization history:: Adult Immunizations unknown. - Infectious Disease History:: Denies. - Social history:: Smoking status: unknown. ROS: 13:15 Constitutional: as per hpi ec2 Exam: 13:15 Constitutional: GEN: Unresponsive with significant secretions appreciated. Head: ec2 atraumatic Eyes: EOMI Ears: External ears are normal. CV: Tachycardia LUNGS: Tachypnea, labored breathing, wet sounding lungs ABD: non-distended Vital Signs: 13:01 BP 126 / 80; Pulse 105; Resp 14; Temp 98; Pulse Ox 92% on 10 lpm Non-rebreather mask; ko1 13:33 BP 131 / 108; Pulse 124; Resp 14; Pulse Ox 83% ; FiO2 100 %; ld1 13:48 Weight 86.18 kg; ty 14:00 BP 103 / 70; Pulse 113; Resp 18; Pulse Ox 95% on ETT vent; ld1 14:06 Pulse 113; ec2 14:15 BP 118 / 103; Pulse 101; Pulse Ox 98% on ETT vent; ld1 14:20 BP 103 / 70; Pulse 101; Pulse Ox 98% ; ec2 14:30 BP 121 / 94; Pulse 94; Pulse Ox 100% on ETT vent; ld1 14:30 BP 104 / 79; Pulse 97; ec2 14:50 BP 122 / 87; Pulse 91; ec2 14:56 Pulse 89; ec2 14:57 BP 122 / 87; Pulse 85; Resp 18; Pulse Ox 100% on ETT vent; ld1 15:41 BP 122 / 91; Pulse 84; ec2 17:16 BP 112 / 85; Pulse 85; Resp 15; Pulse Ox 97% on ETT vent; ld1 17:22 BP 112 / 85; Pulse 85; Resp 15; Pulse Ox 97% on ETT vent; ld1 18:07 BP 112 / 85; Pulse 95; Resp 18; Pulse Ox 97% on ETT vent; ld1 13:33 Called RT at this time. ld1 Procedures: 13:16 Intubation: Ventilated with 100% NRB prior to procedure. O2 saturation prior to ec2 procedure was 94 %. Intubated orally using # 4 Cris blade with 7.5 mm ETT. was successful on first attempt. Ventilated with Ambu bag. Tube secured with ETT allen Placement verified by CXR, CO2 detector with (+) color change, auscultating bilateral breath sounds, Patient tolerated well. MDM: 12:59 Medical Screening Exam initiated ec2 13:15 Data reviewed: vital signs, nurses notes. ED course: Patient arrives today for ec2 evaluation of respiratory distress and altered mental status. Examination yields unresponsive individual. Removed fentanyl patch, give the patient IV Narcan without improvement in symptoms and subsequently required emergent intubation. I intubated her without issue. Will obtain a septic workup and empirically treat with antibiotics.. 13:28 ED course: I discussed tenuous status with the family member and they are agreeable ec2 patient is full code and to continue with any interventions as needed to supplement blood pressure and respiratory status as needed. 13:44 ED course: EKG EKG independently reviewed and interpreted by me, shows sinus ec2 tachycardia, 124 heart rate, no acute ST segment elevations, intervals are nonactionable.. 14:20 ED course: Sepsis reassessment complete. . ec2 14:20 ED course: Reassessment with improvement in tachycardia. Patient appears to be with ec2 improving endorgan function. Saturations in the upper 90s.. 14:30 ED course: Chest x-ray independently reviewed and interpreted by me, shows left upper ec2 lobe opacity consistent with pneumonia.. 14:50 ED course: Sepsis reassessment complete. ec2 15:21 ED course: Will transfer patient to ICU capable facility with pulmonology available. ec2 Will transfer to [facility] after discussion with family.. 16:34 ED course: I discussed case with civil rights representative at [facility] who agrees ec2 accept the patient for transfer.. 09/10 13:14 Order name: Blood Culture Adult (2) ec2 09/10 13:14 Order name: CBC with Diff; Complete Time: 15:21 ec2 09/10 13:14 Order name: CMP; Complete Time: 15:09 ec2 09/10 13:14 Order name: Lactate w/ 2H reflex if indic.; Complete Time: 14:04 ec2 09/10 13:14 Order name: Protime (+inr); Complete Time: 13:46 ec2 09/10 13:14 Order name: Ptt, Activated; Complete Time: 13:46 ec2 09/10 13:14 Order name: Influenza Screen (a \T\ B); Complete Time: 15:21 ec2 09/10 13:14 Order name: SARS RAPID; Complete Time: 15:09 ec2 09/10 13:37 Order name: CBC Smear Scan; Complete Time: 15:21 EDMS 09/10 13:56 Order name: Ghost Lactate-NO COLLECT Timer; Complete Time: 16:30 EDMS 09/10 14:06 Order name: ABG; Complete Time: 14:49 ec2 09/10 17:01 Order name: Lactate Sepsis 2 HR Follow-up; Complete Time: 17:50 EDMS 09/10 13:14 Order name: Chest Single View XRAY; Complete Time: 14:46 ec2 09/10 13:14 Order name: Accucheck; Complete Time: 13:27 ec2 09/10 13:14 Order name: Cardiac monitoring; Complete Time: 13:27 ec2 09/10 13:14 Order name: EKG - Nurse/Tech; Complete Time: 13:35 ec2 09/10 13:14 Order name: IV Saline Lock - Large Bore; Complete Time: 13:27 ec2 09/10 13:14 Order name: Labs collected and sent; Complete Time: 13:27 ec2 09/10 13:14 Order name: O2 Per Protocol; Complete Time: 13:27 ec2 09/10 13:14 Order name: O2 Sat Monitoring; Complete Time: 13:27 ec2 09/10 13:14 Order name: Vital Signs; Complete Time: 13:27 ec2 09/10 13:14 Order name: Intubation Setup; Complete Time: 13:27 ec2 09/10 13:46 Order name: Misc. Order: RECOLLECT - GREEN HEMO; Complete Time: 14:47 ty 09/10 14:04 Order name: Misc. Order: total 3 L IVF; Complete Time: 14:07 ec2 Administered Medications: 13:01 Drug: Naloxone IVP 2 mg IVP once Route: IVP; Site: right wrist; ld1 13:02 Follow up: Response: No adverse reaction ld1 13:40 Drug: NS 0.9% IV 1000 ml IV at 1 bolus Per protocol; to be given as a bolus over 60 ld1 minutes Route: IV; Rate: 1 bolus; Site: left antecubital; 17:26 Follow up: IV Status: Infusion continued; IV Intake: 1000ml ld1 13:40 Drug: Propofol IV 5 mcg/kg/min IV at calculated rate See Administration Instructions; ld1 Standard concentration 1000 mg / 100 mL; Recommended max rate 50 mcg/kg/min; Titrate 5 mcg/kg/min every 5 minutes to achieve goal (see titration policy); Goal parameter RASS score 0 to -2 Route: IV; Rate: calculated rate; Site: left antecubital; 13:45 Follow up: Response: No adverse reaction; Rate change 10 mcg/kg/min; IV Status: ld1 Infusion continued 13:50 Follow up: Rate change 15 mcg/kg/min; IV Status: Infusion continued ld1 13:55 Follow up: Rate change 20 mcg/kg/min; IV Status: Infusion continued ld1 14:01 Drug: Cefepime IVPB 1 grams IVPB at 200 ml/hr once over 30 mins; (mix in NS 100 mL) ld1 Route: IVPB; Rate: 200 ml/hr; Infused Over: 30 mins; Site: left antecubital; 14:15 Follow up: Response: No adverse reaction ld1 14:47 Drug: NS 0.9% IV 2000 ml IV at 2 bolus Per protocol; to be given as a bolus over 60 ld1 minutes Route: IV; Rate: 2 bolus; Site: left antecubital; 17:23 Follow up: Response: No adverse reaction; IV Status: Completed infusion; IV Intake: ld1 2000ml 14:48 Drug: vancoMYCIN IVPB 1 grams IVPB once over 2 hrs Route: IVPB; Infused Over: 2 hrs; ld1 Site: left antecubital; 17:27 Follow up: Response: No adverse reaction; IV Status: Completed infusion; IV Intake: ld1 250ml Disposition: 14:31 Critical Care:. ec2 Disposition Summary: 09/10/24 14:33 Transfer Ordered Notes: Transfer Location: Other Acute Care Facility ec2 Reason: Higher level of care ec2 Condition: Stable ec2 Problem: new ec2 Symptoms: have improved ec2 Accepting Physician: transferring doc(09/10/24 19:01) ld1 Diagnosis - Acute respiratory failure with hypoxia ec2 - Severe sepsis without septic shock ec2 - Lactic Acidosis ec2 - Unspecified bacterial pneumonia ec2 Forms: - Medication Reconciliation Form ec2 - SBAR form ec2 Critical care time excluding procedures: 14:31 Critical care time: Bedside Care: 30 minutes, Consultation: 5 minutes, Family ec2 Intervention: 10 minutes. Total time: 45 minutes Signatures: Dispatcher [employer] EDMS Evelin Graf RN RN ld1 Bety Monge RN RN ko1 Dereck Rogers MD MD ec2 Matt Krishnan Corrections: (The following items were deleted from the chart) 13:15 13:15 BLOOD CULTURE*+BA.LAB.BRZ ordered. EDMS EDMS 13:15 13:15 CBC+H.LAB.BRZ ordered. EDMS EDMS 13:15 13:15 COMPREHENSIVE METABOLIC PANEL+C.LAB.BRZ ordered. EDMS EDMS 13:15 13:15 LACTATE+C.LAB.BRZ ordered. EDMS EDMS 13:15 13:15 PROTIME (+INR)+COAG.LAB.BRZ ordered. EDMS EDMS 13:15 13:15 PTT, ACTIVATED+COAG.LAB.BRZ ordered. EDMS EDMS 13:15 13:15 Influenza Screen (A \T\ B)+BA.LAB.BRZ ordered. EDMS EDMS 13:15 13:15 SARS-COV-2 Antigen Rapid+I.LAB.BRZ ordered. EDMS EDMS 13:15 13:15 Chest Single View+RAD.RAD.BRZ ordered. EDMS EDMS 13:28 13:28 ED course: I discussed tenuous status with the family member and they are ec2 agreeable patient is full code and to continue with any interventions as needed to supplement blood pressure and respiratory status.. ec2 19:01 14:33 transferring doc ec2 ld1
[2024-09-10] MEDS ORDERED: NA CHLORIDE 0.9% 2,000 ML ONE (14:37)
--- NOTE | 2024-09-10 14:40 | RAD REPORT ---
EXAMINATION: ONE VIEW CHEST XR CLINICAL INDICATION: COUGH TECHNIQUE: Frontal chest projection is submitted. Examination is limited by patient positioning and t echnique. COMPARISON: 10/25/2019 FINDINGS: Prominent interstitial markings on the left suggests asymmetric pulmonary edema or pneumonia. The hea rt is mildly enlarged. Endotracheal tube tip is at the level of the aortic arch. Enteric tube coils in the stomach.
[2024-09-10 14:44] LABS: Blood Gas Oxyhemoglobin 89.2 % (94-97); Blood Gas THB 15.4 g/dl (12-18); Blood O2 Saturation 93.7 % (92-98.5)
[2024-09-10 14:46] LABS: Arterial Blood Carboxyhemoglob 3.5 % (0-1.5)
[2024-09-10 15:02] LABS: Albumin 2.5 g/dL (3.4-5.0); Albumin/Globulin Ratio 0.7 (1.1-1.8); Alkaline Phosphatase 195 U/L (45-117); Anion Gap 6.2 mEq/L (5.0-15.0); BUN Blood Urea Nitrogen 11 mg/dL (7-18); Bicarbonate 33 mEq/L (21-32); Bilirubin Total 0.8 mg/dL (0.2-1.0); Globulin 3.7 g/dL (2.3-3.5); Glucose Level 124 mg/dL (74-106); Protein, Total 6.2 g/dL (6.4-8.2); Sodium Level 141 mEq/L (136-145)
[2024-09-10 15:03] LABS: ALT/SGPT < 14 U/L (13-56); AST/SGOT 12 U/L (15-37); Glomerular Filtration Rate 125 ml/min (=/>90); Potassium 3.2 mEq/L (3.5-5.1)
[2024-09-10 15:04] LABS: SARS-CoV-2 Antigen CONTROL BLUE LINE VIS/BG OK; SARS-CoV-2 Antigen Rapid Res Negative (Negative)
[2024-09-10 15:09] LABS: Blood Morphology Comment NOT SEEN (NOT SEEN); Platelet Estimate ADEQ; White Blood Cell Scan OK (OK)
[2024-09-10 19:13] VITALS: TEMP 98
[2024-09-10 19:31] VITALS: BP 112/85; O2SAT 97
--- NOTE | 2024-09-11 13:37 | EKG ---
Test Date: 2024-09-10 Test Time: 13:31:08 Police Service Technician: CRISTINO MEASUREMENT RESULTS: Intervals: Rate: 124 MI: 142 QRSD: 84 QT: 308 QTc: 442 [place]imo: P: 82 MI: 142 QRS: 79 T: 86 INTERPRETIVE STATEMENTS: Age and gender specific ECG analysis Sinus tachycardia Biatrial enlargement ST elevation, consider inferior injury or acute infarct ACUTE PR Consider right ventricular involvement in acute inferior infarct Abnormal ECG No previous ECG available for comparison Electronically Signed On 09-11-24 13:35:56 EDITORIAL DIRECTOR by Matthieu Garcia
== END 2024-09-10 19:01 ==
LOC: ER 12:53
DX: J96.01 Acute respiratory failure with hypoxia (principal); J15.9 Unspecified bacterial pneumonia; R65.20 Severe sepsis without septic shock; E87.20 Acidosis, unspecified; I10 Essential (primary) hypertension; G35 Multiple sclerosis; Z11.52 Encounter for screening for COVID-19
CPT/HCPCS: 93005; 87040 ×2; 85025; 36415; 87205 ×3; 85610; 83605 ×2; 85730; 87077 ×2; 87186 ×2; 80053; 87804 ×2; 71045; 82805; 31500; 99291; 99292; 87811; 36600; 94002; J2704; J2310; J7050; J7030 ×2; J0692

== ENCOUNTER 2024-11-02 13:11 | Inpatient (IN) | payer OTHER ==
[2024-11-02] MEDS ORDERED: propofoL 1,000 MG/100 ML VIAL IV ONE (13:33)
[2024-11-02] MEDS ORDERED: NA CHLORIDE 0.9% 1,000 ML ONE (13:36)
--- NOTE | 2024-11-02 13:39 | RAD REPORT ---
Procedure: Chest Single View HISTORY: Intubation FINDINGS: Endotracheal tube with its tip at the level of the aortic arch. Nasogastric tube enters the stomach. The lungs appear clear of acute infiltrate. No significant pleural effusion noted. The heart is normal size.
[2024-11-02 13:43] LABS: Arterial Blood Carboxyhemoglob 2.4 % (0-1.5); Blood Gas Oxyhemoglobin 95.3 % (94-97); Blood O2 Saturation 99.3 % (92-98.5)
[2024-11-02 14:10] LABS: Specific Gravity 1.011 (1.005-1.030); Sqamous Epithelial <5 /HPF (None Seen); Transitional Epithelial <5 /HPF (None Seen); Urine Bacteria >50 /HPF (<20); Urine Bilirubin NEGATIVE (Negative); Urine Blood 1+ (Negative); Urine Clarity Extremely Turbid (Clear); Urine Color Yellow (Yellow); Urine Culture Reflex Order REFLEXED; Urine Glucose NEGATIVE (Negative); Urine Ketones NEGATIVE (Negative); Urine Micro Reflex YN NO BILL MICROSCOPIC; Urine Mucus 2+ /HPF (None Seen); Urine Nitrite NEGATIVE (Negative); Urine Protein TRACE (Negative); Urine RBC 21-50 /HPF (None Seen); Urine Urobilinogen Normal (Normal); Urine WBC >50 /HPF (<5); Urine Yeast (Budding) Many /HPF (None Seen)
[2024-11-02 14:19] LABS: Barbiturates NEGATIVE (NEGATIVE); Benzodiazepines POSITIVE (NEGATIVE); Cocaine NEGATIVE (NEGATIVE); METHAMPHETAM NEGATIVE (NEGATIVE); Methadone NEGATIVE (NEGATIVE); Opiates NEGATIVE (NEGATIVE); Phencyclidine NEGATIVE (NEGATIVE); THC Cannibis POSITIVE (NEGATIVE)
[2024-11-02 14:57] LABS: Absolute Basophils 0.1 K/uL (0-0.5); Absolute Lymphocytes (CBC) 0.3 K/uL (0.7-4.9); Absolute Monocytes 0.8 K/uL (0.1-1.3); Basophils % 0.2 % (0-1.3); Hematocrit 42.7 % (36.0-45.0); Hemoglobin 13.3 g/dL (12.0-15.0); MCH 30.5 pg (27.0-35.0); MCHC 31.2 g/dL (32.0-36.0); MCV 97.9 fL (80-100); Monocytes % 2.2 % (3.3-12.3); Neutrophils % 96.6 % (41.7-73.7); Platelets 217 thou/uL (152-406); RBC Red Blood Cell Count 4.36 M/uL (3.86-4.86); Red Cell Distribution Width 16.1 % (12.1-15.2)
[2024-11-02 15:02] LABS: PT Prothrombin Time 13.8 SECONDS (9.4-12.5); PTT, Activated Partial Thromb 34.3 SECONDS (24.3-36.9); Protime INR 1.32
[2024-11-02 15:20] LABS: ALT/SGPT 86 U/L (13-56); AST/SGOT 136 U/L (15-37); Albumin 2.1 g/dL (3.4-5.0); Albumin/Globulin Ratio 0.5 (1.1-1.8); Alkaline Phosphatase 151 U/L (45-117); Anion Gap 17.6 mEq/L (5.0-15.0); BUN Blood Urea Nitrogen 25 mg/dL (7-18); Bicarbonate 21 mEq/L (21-32); Bilirubin Direct 0.2 mg/dL (0-0.2); Bilirubin Indirect, Calculated 0.3 mg/dL (0.2-0.8); Bilirubin Total 0.5 mg/dL (0.2-1.0); Creatine Phosphokinase 114 U/L (26-192); Globulin 4.1 g/dL (2.3-3.5); Glomerular Filtration Rate 71 ml/min (=/>90); Glucose Level 134 mg/dL (74-106); Magnesium 2.5 mg/dL (1.6-2.4); NT PRO-BNP 6724 pg/mL (<125); Potassium 3.6 mEq/L (3.5-5.1); Protein, Total 6.2 g/dL (6.4-8.2); Sodium Level 138 mEq/L (136-145); Troponin High Sensitivity 23.7 pg/mL (<58.9)
[2024-11-02] MEDS ORDERED: CEFEPIME 2 GM VIAL ONE (15:44)
[2024-11-02] MEDS ORDERED: NA CHLORIDE 0.9% 2,000 ML ONE (15:44)
--- NOTE | 2024-11-02 15:44 | RAD REPORT ---
EXAM: CT brain without contrast HISTORY: Unconscious COMPARISON: 2019 TECHNIQUE: Multiple contiguous axial images were obtained and a CT of the brain without contrast.. Sagittal and coronal reconstruction performed. Automated exposure control, adjustment of the mA and/or kV according to patient size, and/or iterative reconstruction. Unless otherwise specified, incidental f indings do not require dedicated imaging follow-up FINDINGS: An intracranial bleed is not seen Ventricles are normal caliber No extra-axial fluid collection noted No significant hypodensity within the brain No fluid within the visualized sinuses or mastoids noted. IMPRESSION: No acute intracranial abnormality noted. If the patient continues to have symptoms to suggest an acute intracranial abnormality then MRI of th e brain would be recommended.
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
--- NOTE | 2024-11-02 16:43 | EDPHYS ---
Physician Documentation [facility] Name: Abimbola Erazo Age: 64 yrs Sex: Female : 1960 Arrival Date: 11/02/2024 Time: 13:11 Bed 3 Private MD: ED Physician Nick Toussaint HPI: 11/02 16:29 This 64 yrs old Female presents to ER via EMS with complaints of CPR. rt 16:29 Patient presents to the ED with unwitnessed cardiac arrest. Patient was found down by rt family, when EMS got there, she was found to be in cardiac arrest, asystole. 15 minutes of CPR with 2 rounds of epinephrine or performed with return to spontaneous circulation. Patient was intubated in the field. No further history could be obtained, symptoms are severe in severity, no other aggravating or alleviating factors. Historical: - Allergies: 13:28 Erythromycin; ss 13:28 PENICILLINS; ss 13:28 Sulfa (Sulfonamide Antibiotics); ss 13:28 TETRACYCLINES; ss - PMHx: 13:28 acid reflux; Hypertensive disorder; Multiple Sclerosis; Suprapubic catheter; ss - PSHx: 13:28 Suprapubic catheter; PEG tube (Suprapubic catheter); ss - Immunization history:: Adult Immunizations unknown. - Infectious Disease History:: unable to obtain. - Social history:: Smoking status: unknown. - Unable to obtain history due to: patient is on ventilator. ROS: 16:29 Unable to obtain ROS due to patient is on ventilator, rt Exam: 16:29 Constitutional: The patient appears Unresponsive, on ventilator rt 16:29 Head/face: Atraumatic, normocephalic. 16:29 Eyes: Constricted, midline, no corneal reflex. 16:29 ENT: ET tube in place. 16:29 Chest/axilla: No deformities, equal to patient. 16:29 Cardiovascular: Coarse, ventilated breath sounds bilaterally, 16:29 ECG was reviewed by the Attending Physician. 16:29 Respiratory: Course, ventillator breath sounds bilaterally, 16:29 Abdomen/GI: Suprapubic catheter in place, no abdominal distention, 16:29 Musculoskeletal/extremity: No deformities. 16:29 Skin: Cool, pale. 16:29 Neuro: GCS 3 T, no response to noxious stimuli, Vital Signs: 13:15 BP 138 / 108; Pulse 116; Resp 16 A; Temp 97.3; Pulse Ox 100% on ETT vent; FiO2 100 %; bp 13:23 Weight 77.11 kg; bp 14:00 BP 90 / 70; Pulse 107; Resp 19; Pulse Ox 98% ; bp 14:30 BP 90 / 73; Pulse 104; Resp 18; Pulse Ox 95% ; bp 15:00 BP 97 / 76; Pulse 106; Resp 17; Pulse Ox 94% ; bp 15:30 BP 84 / 74; Pulse 106; Resp 16; Pulse Ox 93% ; bp 16:00 BP 98 / 79; Pulse 105; Resp 16; Pulse Ox 94% ; bp 16:30 BP 108 / 80; Pulse 108; Resp 19; Temp 97.1; Pulse Ox 95% ; ph 17:00 BP 103 / 90; Pulse 110; Resp 18; Pulse Ox 96% on ETT vent; ph 17:23 BP 105 / 88; Pulse 102; Resp 18; Pulse Ox 97% on ETT vent; ph 18:00 BP 91 / 77; Pulse 102; Resp 16; Pulse Ox 97% ; bp Procedures: 17:13 Central Line: the site was prepped with Chlorhexidine, a triple lumen catheter was rt inserted, in the right internal jugular vein, in 1 attempts. placement was verified, by CXR, by blood return, the site was dressed with Chlorhexidine impregnated Tegaderm, the patient tolerated the procedure, well, Smart was placed due to need for access. MDM: 13:17 Medical Screening Exam initiated rt 16:29 Differential diagnosis: arrythmia, cardiac arrest, respiratory arrest, Sepsis, rt cardiopulmonary arrest. Data reviewed: vital signs, nurses notes, lab test result(s), EKG, radiologic studies. Consideration of Admission/Observation Patient was admitted/placed on observation. Management of patient was discussed with the following: Hospitalist: agrees to admit. I considered the following discharge prescriptions or medication management in the emergency department Medications were administered in the Emergency Department. See MAR. Independent interpretation of the following test(s) in the Emergency Department CT Scan: My interpretation is No intracranial hemorrhage seen on my interpretation of CT scan images. Historians other than the Patient: Daughter/Son: . Care significantly affected by the following chronic conditions: Hypertension. 11/02 13:20 Order name: Basic Metabolic Panel; Complete Time: 15:56 rt 11/02 13:20 Order name: CBC with Diff; Complete Time: 17:47 rt 11/02 13:20 Order name: LFT's; Complete Time: 15:56 rt 11/02 13:20 Order name: Magnesium; Complete Time: 15:56 rt 11/02 13:20 Order name: NT PRO-BNP; Complete Time: 15:56 rt 11/02 13:20 Order name: PT-INR; Complete Time: 15:05 rt 11/02 13:20 Order name: Troponin HS; Complete Time: 15:56 rt 11/02 13:20 Order name: UAM; Complete Time: 14:50 rt 11/02 13:20 Order name: ABG; Complete Time: 14:50 rt 11/02 13:20 Order name: CPK; Complete Time: 15:56 rt 11/02 13:20 Order name: Blood Culture Adult (2) rt 11/02 13:20 Order name: Lactate w/ 2H reflex if indic.; Complete Time: 15:18 rt 11/02 13:20 Order name: Ptt, Activated; Complete Time: 15:05 rt 11/02 13:20 Order name: Acetaminophen; Complete Time: 15:56 rt 11/02 13:20 Order name: ETOH Level; Complete Time: 15:18 rt 11/02 13:20 Order name: Salicylate; Complete Time: 15:18 rt 11/02 13:20 Order name: Urine Drug Screen; Complete Time: 14:50 rt 11/02 14:14 Order name: Urine Culture EDMS 11/02 16:28 Order name: Lactate Sepsis 2 HR Follow-up; Complete Time: 16:45 EDMS 11/02 17:11 Order name: Comprehensive Metabolic Panel EDMS 11/02 17:12 Order name: Creatine Phosphokinase EDMS 11/02 17:12 Order name: Magnesium EDMS 11/02 17:12 Order name: NT PRO-BNP EDMS 11/02 17:12 Order name: Phosphorus EDMS 11/02 17:12 Order name: Thyroid Stimulating Hormone EDMS 11/02 17:12 Order name: CBC with Automated Diff EDMS 11/02 17:12 Order name: CBC with Automated Diff EDMS 11/02 17:40 Order name: Manual Differential; Complete Time: 17:47 EDMS 11/02 13:20 Order name: XRAY Chest (1 view); Complete Time: 14:50 rt 11/02 13:20 Order name: CT Head Brain wo Cont; Complete Time: 15:56 rt 11/02 13:20 Order name: CT Chest Abdomen Pelvis W/O Contrast; Complete Time: 15:57 rt 11/02 16:56 Order name: Renal Ultrasound-Complete; Complete Time: 18:26 EDMS 11/02 13:20 Order name: EKG; Complete Time: 13:21 rt 11/02 13:20 Order name: Cardiac monitoring; Complete Time: 13:44 rt 11/02 13:20 Order name: EKG - Nurse/Tech; Complete Time: 14:33 rt 11/02 13:20 Order name: IV Saline Lock; Complete Time: 13:44 rt 11/02 13:20 Order name: Labs collected and sent; Complete Time: 14:33 rt 11/02 13:20 Order name: O2 Per Protocol; Complete Time: 13:44 rt 11/02 13:20 Order name: O2 Sat Monitoring; Complete Time: 13:44 rt 11/02 13:20 Order name: Accucheck; Complete Time: 13:44 rt 11/02 13:20 Order name: IV Saline Lock - Large Bore; Complete Time: 13:44 rt 11/02 13:20 Order name: Vital Signs; Complete Time: 13:33 rt EC:29 Rate is 110 beats/min. Rhythm is regular, Sinus tachycardia with No ectopy. MS interval rt is normal. QRS interval is normal. QT interval is normal. No Q waves. T waves are Normal. No ST changes noted. Interpreted by me. Administered Medications: 13:44 Drug: Propofol IV 5 mcg/kg/min IV at calculated rate See Administration Instructions; bp Standard concentration 1000 mg / 100 mL; Recommended max rate 50 mcg/kg/min; Titrate 5 mcg/kg/min every 5 minutes to achieve goal (see titration policy); Goal parameter RASS score 0 to -2 Route: IV; Rate: calculated rate; Site: left forearm; 15:54 Follow up: Rate change mcg/kg/min bp 17:45 Follow up: IV Status: Completed infusion bp 13:44 Drug: NS 0.9% IV 1000 ml IV at 1000 ml once; to be given as a bolus over 60 minutes bp Route: IV; Rate: 1000 ml; Site: left forearm; 15:54 Follow up: IV Status: Completed infusion bp 15:45 Drug: Cefepime IVPB 2 grams IVPB at 200 ml/hr once over 30 mins; (mix in NS 100 mL) bp Route: IVPB; Rate: 200 ml/hr; Infused Over: 30 mins; Site: right jugular; 17:44 Follow up: IV Status: Completed infusion bp 15:45 Drug: NS 0.9% IV (30 ml/kg) 30 ml/kg IV at bolus once; Sepsis Protocol; to be given as bp a bolus over 90 minutes Route: IV; Rate: bolus; Site: right jugular; 17:44 Follow up: IV Status: Completed infusion bp Disposition: 16:29 Critical Care:. rt Disposition Summary: 11/02/24 16:42 Hospitalization Ordered Notes: Hospitalization Status: Inpatient Admission rt Provider: Pasha Kaur rt Location: Intensive Care Unit rt Condition: Critical rt Problem: new rt Symptoms: are unchanged rt Bed/Room Type: Standard rt Room Assignment: 1-(11/02/24 17:23) bd Diagnosis - Cardiopulmonary arrest rt - Septic shock rt - Urinary tract infection rt Forms: - Medication Reconciliation Form rt - SBAR form rt - Leadership Thank You Letter rt Critical care time excluding procedures: 16:29 Critical care time: Bedside Care: 40 minutes, Consultation: 5 minutes, Family rt Intervention: 10 minutes. Total time: 55 minutes Addendum: 11/05/2024 16:01 Addendum: Sepsis reassessment note: Patient reassessed at 1730 on day of arrival, on r t day of arrival, after 30 cc/kg bolus, the blood pressure has stabilized, mentation remains the same, capillary refill did improve. Patient remains with ventilated breath sounds, oxygenation is appropriate.. Signatures: Dispatcher [employer] EDMS Debbie Raymundo Shelby, RN RN ss Taniya Guo RN RN Matthew Duenas RN RN Letty Caballero PA-C PANick Castillo MD MD rt Corrections: (The following items were deleted from the chart) 11/02 13:21 13:21 BASIC METABOLIC PANEL+C.LAB.BRZ ordered. EDMS EDMS 13:21 13:21 CBC+H.LAB.BRZ ordered. EDMS EDMS 13:21 13:21 HEPATIC FUNCTION+C.LAB.BRZ ordered. EDMS EDMS 13:21 13:21 MAGNESIUM+C.LAB.BRZ ordered. EDMS EDMS 13:21 13:21 PROBNP+C.LAB.BRZ ordered. EDMS EDMS 13:21 13:21 PROTIME (+INR)+COAG.LAB.BRZ ordered. EDMS EDMS 13:21 13:21 Troponin High Sensitivity+C.LAB.BRZ ordered. EDMS EDMS 13:21 13:21 Urinalysis W/Microscopic+U.LAB.BRZ ordered. EDMS EDMS 13:21 13:21 CREATINE PHOSPHOKINASE+C.LAB.BRZ ordered. EDMS EDMS 13:21 13:21 BLOOD CULTURE*+BA.LAB.BRZ ordered. EDMS EDMS 13:21 13:21 LACTATE+C.LAB.BRZ ordered. EDMS EDMS 13:21 13:21 PTT, ACTIVATED+COAG.LAB.BRZ ordered. EDMS EDMS 13:21 13:21 ACETAMINOPHEN+C.LAB.BRZ ordered. EDMS EDMS 13:21 13:21 ETHANOL+C.LAB.BRZ ordered. EDMS EDMS 13:21 13:21 SALICYLATE+C.LAB.BRZ ordered. EDMS EDMS 13:21 13:21 URINE DRUG SCREEN+UC.LAB.BRZ ordered. EDMS EDMS 13:21 13:21 Arterial Blood Gas+RC.LAB.BRZ ordered. EDMS EDMS 13:31 13:20 Suicide Screening ([place]) ordered. rt ph 16:27 15:15 Ghost Lactate-NO COLLECT Timer ordered. EDMS EDMS 17:23 16:42 rt bd
--- NOTE | 2024-11-02 16:43 | ER ---
Nurse's Notes [facility] Name: Abimbola Erazo Age: 64 yrs Sex: Female : 1960 Arrival Date: 11/02/2024 Time: 13:11 Bed 3 Private MD: Diagnosis: Cardiopulmonary arrest;Septic shock;Urinary tract infection Presentation: 11/02 13:08 Chief complaint: EMS states: family called 911 for unresponsive person. Upon EMS ss arrival, pt was found without a pulse, rhythm asystole. CPR initiated by EMS personnel. Epi given x 2. ROSC achieved after 2nd dose of epi given. Pupils reportedly noted to be pinpoint with Fentanyl patch removed by EMS. Narcan administered with improvement. Ativan 2 mg administered for sedation en route to ED. 13:08 Acuity: LILAINA 1 ss 13:08 Method Of Arrival: EMS: [facility] 13:15 Care prior to arrival: Oral intubation, CPR performed by EMS Glucose check: 191. Care ss prior to arrival: NG tube inserted prior to arrival by EMS personnel. ET tube noted to be a 6.5. Compressions began prior to arrival. 13:59 Coronavirus screen: Vaccine status: unable to obtain. Ebola Screen: No symptoms or ph risks identified at this time. Initial Sepsis Screen: Does the patient meet any 2 criteria? No. Patient's initial sepsis screen is negative. Does the patient have a suspected source of infection? No. Patient's initial sepsis screen is negative. Risk Assessment: Do you want to hurt yourself or someone else? Unable to obtain. 13:59 Onset of symptoms was November 02, 2024. ph Triage Assessment: 13:10 General: Appears distressed, ill, Behavior is unresponsive. Pain: Unable to use pain bp scale. Patient is unresponsive. EENT: No deficits noted. Neuro: Level of Consciousness is unresponsive, Oriented to none. Cardiovascular: Rhythm is sinus tachycardia. Respiratory: Airway via oral intubation. GI: No deficits noted. : suprapubic catheter in place. Derm: No deficits noted. Musculoskeletal: BILATERAL FOOT DROP. Historical: - Allergies: 13:28 Erythromycin; ss 13:28 PENICILLINS; ss 13:28 Sulfa (Sulfonamide Antibiotics); ss 13:28 TETRACYCLINES; ss - PMHx: 13:28 acid reflux; Hypertensive disorder; Multiple Sclerosis; Suprapubic catheter; ss - PSHx: 13:28 Suprapubic catheter; PEG tube (Suprapubic catheter); ss - Immunization history:: Adult Immunizations unknown. - Infectious Disease History:: unable to obtain. - Social history:: Smoking status: unknown. - Unable to obtain history due to: patient is on ventilator. Screenin:58 [facility] ED Fall Risk Assessment (Adult) History of falling in the last 3 months, ph including since admission No falls in past 3 months (0 pts) Confusion or Disorientation No (0 pts) Intoxicated or Sedated Yes (3 pts) Impaired Gait Yes (1 pt) Mobility Assist Device Used No (0 pt) Altered Elimination Yes (1 pt) Score/Fall Risk Level 3 or more points = High Risk Maintained a safe environment, Hourly rounding (assess needs \T\ fall precautionary measures) done. Abuse screen: Denies threats or abuse. Denies injuries from another. Nutritional screening: No deficits noted. Tuberculosis screening: No symptoms or risk factors identified. Assessment: 13:08 Cardiac rhythm is Sinus tachycardia. ss 13:08 General: Appears distressed, Behavior is unresponsive. bp 14:00 Reassessment: No changes from previously documented assessment. Patient and/or family bp updated on plan of care and expected duration. Pain level reassessed. 15:00 Reassessment: Patient states symptoms have not improved. Neuro: Level of Consciousness bp is unresponsive, Oriented to none. 16:00 Reassessment: No changes from previously documented assessment. Patient and/or family bp updated on plan of care and expected duration. Pain level reassessed. Patient states symptoms have not improved. 16:30 Reassessment: No changes from previously documented assessment. Patient and/or family bp updated on plan of care and expected duration. Pain level reassessed. ADMIT INITIATED. 17:43 Reassessment: REPORT TO NAYLA PINEDA FOR ICU 3, TRANSPORT PENDING RT. bp Vital Signs: 13:15 BP 138 / 108; Pulse 116; Resp 16 A; Temp 97.3; Pulse Ox 100% on ETT vent; FiO2 100 %; bp 13:23 Weight 77.11 kg; bp 14:00 BP 90 / 70; Pulse 107; Resp 19; Pulse Ox 98% ; bp 14:30 BP 90 / 73; Pulse 104; Resp 18; Pulse Ox 95% ; bp 15:00 BP 97 / 76; Pulse 106; Resp 17; Pulse Ox 94% ; bp 15:30 BP 84 / 74; Pulse 106; Resp 16; Pulse Ox 93% ; bp 16:00 BP 98 / 79; Pulse 105; Resp 16; Pulse Ox 94% ; bp 16:30 BP 108 / 80; Pulse 108; Resp 19; Temp 97.1; Pulse Ox 95% ; ph 17:00 BP 103 / 90; Pulse 110; Resp 18; Pulse Ox 96% on ETT vent; ph 17:23 BP 105 / 88; Pulse 102; Resp 18; Pulse Ox 97% on ETT vent; ph 18:00 BP 91 / 77; Pulse 102; Resp 16; Pulse Ox 97% ; bp ED Course: 13:15 SUPRAPUBIC CATH JIG FILLER. bp 13:15 Assist ventilation with ventilator. bp 13:16 Patient arrived in ED. ph 13:17 Nick Toussaint MD is Attending Physician. rt 13:17 Matthew Tatum, RN is Primary Nurse. bp 13:24 Inserted saline lock: 20 gauge in left forearm, using aseptic technique. Flushed with rs6 10 mL NS. 13:28 Triage completed. ss 13:29 XRAY Chest (1 view) In Process Unspecified. EDMS 13:57 UAM Sent. ph 13:57 Urine Drug Screen Sent. ph 13:57 Urine collected: Casey catheter specimen, cloudy, vickie colored, EKG done, by ED staff, ph reviewed by Nick Toussaint MD. 13:59 Patient has correct armband on for positive identification. Placed in gown. Bed in low ph position. Call light in reach. Side rails up X2. Client placed on continuous cardiac and pulse oximetry monitoring. NIBP monitoring applied. groundwater monitoring technician on. 13:59 Arm band placed on. ph 14:30 Assisted provider with central line placement. Set up central line tray. Triple lumen bp line placed in right internal jugular. Line placed by Nick Toussaint MD Dressed with Tegaderm, Blood was collected. Patient tolerated well. Before procedure, did Practitioner(s) obtain informed consent? No. Patient \T\ family education about procedure, CLABSI prevention and S/S of infection? No. Time-out/Briefing performed prior to start of procedure? Yes. Was handwashing/sanitizing done immediately prior to procedure? Yes. Was patient positioned to in a way to prevent air embolism? Yes. Was procedure site sterilized? Yes, with chlorhexidine. Was the site allowed to dry? Yes. Was local anesthetic and/or sedation utilized? No. During the procedure, did the Practitioner(s) maintain a sterile field? Yes. Were unused ports clamped during insertion? Yes. Was a 2nd qualified MD obtained after 3 unsuccessful insertion attempts? N/A. Was blood aspirated from each lumen? Yes. After the procedure, did the Practitioner(s) clean the site and apply a sterile dressing? Yes. 15:21 CT Head Brain wo Cont In Process Unspecified. EDMS 15:21 CT Chest Abdomen Pelvis W/O Contrast In Process Unspecified. EDMS 16:41 Pasha Kaur MD is Hospitalizing Provider. rt 17:44 Patient admitted, IV remains in place. bp Administered Medications: 13:44 Drug: Propofol IV 5 mcg/kg/min IV at calculated rate See Administration Instructions; bp Standard concentration 1000 mg / 100 mL; Recommended max rate 50 mcg/kg/min; Titrate 5 mcg/kg/min every 5 minutes to achieve goal (see titration policy); Goal parameter RASS score 0 to -2 Route: IV; Rate: calculated rate; Site: left forearm; 15:54 Follow up: Rate change mcg/kg/min bp 17:45 Follow up: IV Status: Completed infusion bp 13:44 Drug: NS 0.9% IV 1000 ml IV at 1000 ml once; to be given as a bolus over 60 minutes bp Route: IV; Rate: 1000 ml; Site: left forearm; 15:54 Follow up: IV Status: Completed infusion bp 15:45 Drug: Cefepime IVPB 2 grams IVPB at 200 ml/hr once over 30 mins; (mix in NS 100 mL) bp Route: IVPB; Rate: 200 ml/hr; Infused Over: 30 mins; Site: right jugular; 17:44 Follow up: IV Status: Completed infusion bp 15:45 Drug: NS 0.9% IV (30 ml/kg) 30 ml/kg IV at bolus once; Sepsis Protocol; to be given as bp a bolus over 90 minutes Route: IV; Rate: bolus; Site: right jugular; 17:44 Follow up: IV Status: Completed infusion bp Medication: 13:58 VIS not applicable for this client. ph Outcome: 16:42 Decision to Hospitalize by Provider. rt 18:52 Patient left the ED. bp Signatures: Dispatcher [employer] EDMS Mara Nj RN RN ss Taniya Guo RN RN ph Matthew Tatum, RN RN bp Nick Toussaint MD MD rt Nick Crowe rs6 Corrections: (The following items were deleted from the chart) 16:11 14:00 Reassessment: No changes from previously documented assessment. Patient is alert, bp oriented x 3, equal unlabored respirations, skin warm/dry/pink. bp 16:58 13:15 BP 138 / 108; Pulse 116bpm; Resp 16bpm; Assisted; Pulse Ox 100% ET / Ventilator bp FiO2 100%; ss 17:24 16:30 BP 108 / 8; Pulse 108bpm; Resp 19bpm; Pulse Ox 95%; Temp 97.1F; bp ph 18:21 17:43 Reassessment: REPORT TO NAYLA PINEDA FOR ICU 3 bp bp
[2024-11-02] MEDS ORDERED: ONDANSETRON 4 MG/2 ML VIAL IV PRN (17:04)
[2024-11-02] MEDS ORDERED: SODIUM CHLORIDE 0.9% 10ML INJ IV PRN (17:33)
--- NOTE | 2024-11-02 17:33 | P.HP ---
Certification for Inpatient Patient admitted to: Inpatient With expected LOS: >2 Midnights Patient will require the following post-hospital care: None Practitioner: I am a practitioner with admitting privileges, knowledge of patient current condition, hospital course, and medical plan of care. Services: Services provided to patient in accordance with Admission requirements found in Title 42 Section 412.3 of the Code of Federal Regulations Patient History Date of Service: 11/02/24 Reason for admission: Cardiac arrest, acute respiratory failure, sepsis History of Present Illness: Patient is a 64-year-old female with a past medical history significant for multiple sclerosis, hypertension, bedbound status, chronic low back pain, hypertension, GERD, suprapubic catheter who presents with complaint of cardiac arrest. Per report from family patient was noted to be snoring earlier in the day but family did not make anything out of it. Family later checked on the patient and patient was noted to be unresponsive. EMS was called and patient was noted to be in asystole. CPR was started and patient achieved ROSC in 15 minutes. Patient was intubated in the field. No other signs and symptoms reported. Symptoms are aggravated or relieved by nothing. Patient was brought to the hospital for medical evaluation and further therapy. Of note, patient was recently treated for Enterococcus faecalis at [facility] at the [facility]. Patient was discharged home with a 5-day course of Zyvox and Levaquin. Allergies erythromycin base Allergy (Verified 11/17/14 09:51) Hives Penicillins Allergy (Verified 11/17/14 09:51) Hives Sulfa (Sulfonamide Antibiotics) Allergy (Verified 11/17/14 09:51) Hives Tetracyclines Allergy (Verified 11/17/14 09:51) Hives ARYTHROMYCIN Allergy (Uncoded 02/17/15 19:05) Unknown Erythromycin Allergy (Uncoded 05/27/15 08:07) Unknown Home Medications: Amitriptyline [Elavil] 10 mg PO BEDTIME 11/17/14 Methadone HCl [Methadone HCl*] 10 mg PO Q6H 11/17/14 Cyclobenzaprine [Flexeril*] 10 mg PO TID 07/15/15 Lansoprazole [Prevacid] 30 mg PO DAILY 07/15/15 - Past Medical/Surgical History -: HTN -: Multiple Sclerosis -: S\P Suprapubic catheter -: Chronic Pain syndrome -: Back Surgery - Family History Family History: Reviewed- Non-Contributory - Social History Smoking Status: Unknown if ever smoked Alcohol use: No CD- Drugs: Yes Caffeine use: No Place of Residence: Home Review of Systems is unable to be obtained (Patient is intubated) Physical Examination - Vital Signs Pulse: 108 Pulse Ox (%): 98 - Physical Exam General: Delirious, Unresponsive HEENT: Mucous membr. moist/pink, Abnormal EOM, Sclerae nonicteric Neck: Supple, 2+ carotid pulse no bruit, No LAD, Without JVD or thyroid abnormality Respiratory: Clear to auscultation bilaterally, Diminished Cardiovascular: No edema, Irregular heart rate/rhythm Capillary refill: <2 Seconds Gastrointestinal: Normal bowel sounds, No tenderness Musculoskeletal: No tenderness Integumentary: No rashes Neurological: Normal affect, Abnormal gait (Bedbound), Abnormal speech (Unable to speak) Lymphatics: No axilla or inguinal lymphadenopathy Urinary: Suprapubic catheter - Studies Laboratory Data (last 24 hrs) 11/02/24 11/02/24 11/02/24 14:25 14:25 14:25 WBC 36.20 H Hgb 13.3 Hct 42.7 Plt Count 217 PT 13.8 H INR 1.32 APTT 34.3 Sodium 138 Potassium 3.6 BUN 25 H Creatinine 0.91 Glucose 134 H Magnesium 2.5 H Total Bilirubin 0.5 AST 136 H ALT 86 H Alkaline Phosphatase 151 H Assessment and Plan - Plan Cardiac arrest. --Patient achieved ROSC with EMS in 15 minutes. Patient intubated in the field --Echocardiogram pending to assess cardiac structures and functions. --Cardiology consulted. Recommendations appreciated. --Telemetry to monitor for any malignant arrhythmia. Severe sepsis with septic shock. UTI POA Leukocytosis Metabolic Acidosis Lactic Acidosis --Continue antibiotics. --Infectious disease MD consulted. Recommended Merrem and vancomycin. --Blood cultures and urine cultures pending. --Lactic acid levels trending down --Continue gentle IV hydration. Acute metabolic encephalopathy. --CT head unremarkable for any acute intracranial abnormality. --Neurologist consulted. Recommended repeat CT in 24 hours. --Continue current treatment regimen. Acute respiratory failure with hypoxia and Hypercapnia --Patient remains intubated. --Maintenance Mechanic Supervisor consulted. Recommendations appreciated. Hypertension. --Patient currently hypotensive. --Continue gentle IV hydration. --Will hold off on BP meds. GERD --Continue Protonix Chronic pain syndrome -- Continue pain medication regimen when appropriate. Multiple sclerosis. S\P Suprapubic catheter --Patient not on home medication. --Further management per neurologist. --CT abdomen indicates mild to moderate left hydronephrosis and mild right hydronephrosis. --Renal ultrasound pending for further evaluation. --Continue IV hydration. DVT prophylaxis with Lovenox subQ Discharge Plan: Home Plan to discharge in: Greater than 2 days - Advance Directives Does patient have a Living Will: No Does patient have a Durable POA for Healthcare: No - Code Status/Comfort Care Code Status Assessed: Yes Code Status: Full Code Physician Review: Patient Assessed, Agree with Above Assessment and Plan
[2024-11-02] MEDS ORDERED: BISACODYL 10 MG RECTAL SUPP PR PRN (17:39)
[2024-11-02 17:40] LABS: Band Neutrophils 9 % (0-1); Blood Morphology Comment NOT SEEN (NOT SEEN); Differential Total Cells Count 100; Eosinophils 0 % (0-3); Lymphocytes 1 % (15-42); Monocytes 2 % (0-10); Platelet Estimate ADEQ; Segmented Neutrophils 88 % (40-80)
[2024-11-02] MEDS: CEFEPIME 2 GM in NA CHLORIDE 0.9% 100 ML IV SCH (18:00)
--- NOTE | 2024-11-02 18:19 | RAD REPORT ---
EXAMINATION: US RENAL CLINICAL INDICATION: Hydronephrosis TECHNIQUE: Real-time ultrasonography of the kidneys performed. COMPARISON: CT abdomen November 02, 2024. FINDINGS: Right kidney is inadequately visualized secondary to difficulty with patient positioning Left kidney measures 9 cm with normal echotexture.. Evaluation for hydronephrosis is nondiagnostic se condary to difficulty with patient positioning. Debris is present bladder. Small bladder calculi IMPRESSION: Limited examination. Inadequate assessment for hydronephrosis
[2024-11-02 18:58] LABS: Albumin 2.2 g/dL (3.4-5.0); Albumin/Globulin Ratio 0.6 (1.1-1.8); Anion Gap 8.3 mEq/L (5.0-15.0); Bilirubin Total 0.5 mg/dL (0.2-1.0); Globulin 3.9 g/dL (2.3-3.5); Magnesium 2.2 mg/dL (1.6-2.4); Phosphorus 3.9 mg/dL (2.5-4.9); Potassium 3.3 mEq/L (3.5-5.1); Protein, Total 6.1 g/dL (6.4-8.2); Thyroid Stimulating Hormone 0.744 uIU/mL (0.358-3.740)
[2024-11-02] MEDS: NA CHLORIDE 0.9% 1,000 ML IV SCH ×2 (19:38→20:02)
[2024-11-02] MEDS: ENOXAPARIN 40 MG/0.4 ML SQ SCH (19:38)
[2024-11-02] MEDS: PANTOPRAZOLE 40 MG INJ IVP SCH (19:38)
[2024-11-02] MEDS: VANCOMYCIN 2 GM in NA CHLORIDE 0.9% 500 ML IVPB ONE (19:39)
[2024-11-02] MEDS: Meropenem 1,000 MG in NA CHLORIDE 0.9% 100 ML IV SCH (22:16)
[2024-11-03] MEDS: ACETAMINOPHEN 650MG/RECT SUPP PR PRN (04:14)
[2024-11-03] MEDS ORDERED: VANCOMYCIN 1 GM in NA CHLORIDE 0.9% 250 ML IVPB SCH (06:00)
[2024-11-03 06:20] LABS: Absolute Lymphocytes (CBC) 0.6 K/uL (0.7-4.9); Absolute Monocytes 0.7 K/uL (0.1-1.3); Absolute Neutrophil 23.7 K/uL (1.8-8.0); Basophils % 0.1 % (0-1.3); Hematocrit 39.1 % (36.0-45.0); Hemoglobin 12.7 g/dL (12.0-15.0); Lymphocytes % 2.5 % (15.3-44.8); MCH 30.6 pg (27.0-35.0); MCHC 32.5 g/dL (32.0-36.0); MCV 94.3 fL (80-100); MPV 7.5 fL (7.6-11.3); Monocytes % 2.9 % (3.3-12.3); Neutrophils % 94.5 % (41.7-73.7); Platelets 249 thou/uL (152-406); RBC Red Blood Cell Count 4.15 M/uL (3.86-4.86); Red Cell Distribution Width 15.7 % (12.1-15.2)
[2024-11-03 06:34] LABS: Anion Gap 8.4 mEq/L (5.0-15.0); Magnesium 2.2 mg/dL (1.6-2.4); Phosphorus 2.4 mg/dL (2.5-4.9); Potassium 3.4 mEq/L (3.5-5.1)
[2024-11-03] MEDS: POTASSIUM PHOS IN 0.9 % NACL 15 MMOL/250 ML BAG IV ONE ×2 (06:42→08:16)
[2024-11-03] MEDS: VANCOMYCIN 1.5 GM in NA CHLORIDE 0.9% 500 ML IVPB SCH ×2 (07:30→08:31)
[2024-11-03] MEDS: KCL 20 MEQ/100 mL IVPB 20 MEQ/100 ML BAG IV SCH (08:31)
--- NOTE | 2024-11-03 12:13 | P.CNS ---
Date of Consult: 11/03/24 Chief Complaint: Cardiac arrest, acute respiratory failure, sepsis History of Present Illness: Patient with PMH of MS, bed bound, was found to be unresponsive, PEA arrest, ROSC achieved after 15 minutes of CPR, currently intubated with no response. Allergies erythromycin base Allergy (Verified 11/17/14 09:51) Hives Penicillins Allergy (Verified 11/17/14 09:51) Hives Sulfa (Sulfonamide Antibiotics) Allergy (Verified 11/17/14 09:51) Hives Tetracyclines Allergy (Verified 11/17/14 09:51) Hives ARYTHROMYCIN Allergy (Uncoded 02/17/15 19:05) Unknown Erythromycin Allergy (Uncoded 05/27/15 08:07) Unknown Home medications list reviewed: Yes Home Medications: Amitriptyline [Elavil] 10 mg PO BEDTIME 11/17/14 Methadone HCl [Methadone HCl*] 10 mg PO Q6H 11/17/14 Cyclobenzaprine [Flexeril*] 10 mg PO TID 07/15/15 Lansoprazole [Prevacid] 30 mg PO DAILY 07/15/15 - Past Medical/Surgical History -: HTN -: Multiple Sclerosis -: S\P Suprapubic catheter -: Chronic Pain syndrome -: Back Surgery - Social History Smoking Status: Unknown if ever smoked Alcohol use: No CD- Drugs: Yes Caffeine use: No Place of Residence: Home Review of Systems is unable to be obtained (patient intubated.) Physical Examination Temp Pulse Resp BP Pulse Ox 99.0 F 114 H 16 148/97 H 96 11/03/24 12:00 11/03/24 12:00 11/03/24 12:00 11/03/24 12:00 11/03/24 12:00 General: Other (intubated.) HEENT: Atraumatic Neck: Supple Respiratory: Clear to auscultation bilaterally Cardiovascular: Regular rate/rhythm, Normal S1 S2, No murmurs Gastrointestinal: Normal bowel sounds Laboratory Data (last 24 hrs) 11/02/24 11/02/24 11/02/24 14:25 14:25 14:25 WBC 36.20 H Hgb 13.3 Hct 42.7 Plt Count 217 PT 13.8 H INR 1.32 APTT 34.3 Sodium 138 Potassium 3.6 BUN 25 H Creatinine 0.91 Glucose 134 H Magnesium 2.5 H Total Bilirubin 0.5 AST 136 H ALT 86 H Alkaline Phosphatase 151 H - Problems (1) Cardiac arrest Current Visit: Yes Status: Acute Plan: patient EKG shows sinus tachycardia, no significant ST-T eave changes. Echo shows normal EF, Wall motions Troponin are negative so far. continue to monitor on tele no further cardiac work up needed.
[2024-11-03] MEDS ORDERED: LANO/MINERAL OIL/PETRO 3.5 GM EACH EYE PRN (12:20)
--- NOTE | 2024-11-03 12:23 | P.CNS ---
Date of Consult: 11/03/24 Reason for Consult: S/p cardiopulmonary arrest Chief Complaint: Cardiac arrest, acute respiratory failure, sepsis History of Present Illness: Patient is 64 years of age with a history of multiple multiple sclerosis bedbound admitted with the cardiopulmonary arrest patient underwent CPR for over 15-minute intubated transferred to the ICU currently unresponsive comatose minimally cyanotic unresponsive to deep pain absent plantar reflexes recently treated for Enterococcus charge home on Zyvox and Levaquin Allergies erythromycin base Allergy (Verified 11/17/14 09:51) Hives Penicillins Allergy (Verified 11/17/14 09:51) Hives Sulfa (Sulfonamide Antibiotics) Allergy (Verified 11/17/14 09:51) Hives Tetracyclines Allergy (Verified 11/17/14 09:51) Hives ARYTHROMYCIN Allergy (Uncoded 02/17/15 19:05) Unknown Erythromycin Allergy (Uncoded 05/27/15 08:07) Unknown Home Medications: Amitriptyline [Elavil] 10 mg PO BEDTIME 11/17/14 Methadone HCl [Methadone HCl*] 10 mg PO Q6H 11/17/14 Cyclobenzaprine [Flexeril*] 10 mg PO TID 07/15/15 Lansoprazole [Prevacid] 30 mg PO DAILY 07/15/15 - Past Medical/Surgical History -: HTN -: Multiple Sclerosis -: S\P Suprapubic catheter -: Chronic Pain syndrome -: Back Surgery - Social History Smoking Status: Unknown if ever smoked Alcohol use: No CD- Drugs: Yes Caffeine use: No Place of Residence: Home Review of Systems is unable to be obtained Physical Examination Temp Pulse Resp BP Pulse Ox 99.0 F 114 H 16 148/97 H 96 11/03/24 12:00 11/03/24 12:00 11/03/24 12:00 11/03/24 12:00 11/03/24 12:00 General: Comatose Neurological: Other (Patient is comatose and unresponsive no response to deep pain stimulation pinpoint unresponsive plantar reflexes) Laboratory Data (last 24 hrs) 11/02/24 11/02/24 11/02/24 14:25 14:25 14:25 WBC 36.20 H Hgb 13.3 Hct 42.7 Plt Count 217 PT 13.8 H INR 1.32 APTT 34.3 Sodium 138 Potassium 3.6 BUN 25 H Creatinine 0.91 Glucose 134 H Magnesium 2.5 H Total Bilirubin 0.5 AST 136 H ALT 86 H Alkaline Phosphatase 151 H - Problems (1) Cardiac arrest Current Visit: Yes Status: Acute Plan: Patient is 64 years of age first found unresponsive cardiac arrest count elevated history of multiple sclerosis bedbound treated for Enterococcus infection with Zyvox Levaquin show elevated white count abnormal LFTs CT of the brain is negative CT of the chest possibly shows infiltrate signs oxygenation satisfactory patient is on a ventilator to monitor patient to consider DNR will withdrawal of care if no response in the next 24 hours reviewed with supportive therapy prognosis poor patient's chest x-ray is clear doubt cardiac as her troponin was negative no acute ST-T changes on EKG
--- NOTE | 2024-11-03 13:08 | ECHO ---
HEIGHT: 5 ft 6 in WEIGHT: 169 lb 9.6 oz DATE OF STUDY: 11/03/[address]: Helga Mejia 2-DIMENSIONAL: YES M.MODE: YES DOPPLER: YES COLOR FLOW: YES TDS: NO PORTABLE: YES DEFINITY: NO BUBBLE STUDY: NO DIAGNOSIS: CARDIAC ARREST/ CONGESTIVE HEART FAILURE CARDIAC HISTORY: CATHERIZATION: SURGERY: PROSTHETIC VALVE: PACEMAKER: MEASUREMENTS (cm) DIASTOLIC (NORMALS) SYSTOLIC (NORMALS) IVSd 0.9 (0.6-1.2) LA Diam 3.6 (1.9-4.0) LVEF 60-65% LVIDd 4.2 (3.5-5.7) LVIDs 2.6 (2.0-3.5) %FS 40% LVPWd 0.9 (0.6-1.2) Ao Diam 2.6 (2.0-3.7) 2 DIMENSIONAL ASSESSMENT: RIGHT ATRIUM: NORMAL LEFT ATRIUM: NORMAL RIGHT VENTRICLE: NORMAL LEFT VENTRICLE: NORMAL TRICUSPID VALVE: TRACE OF TRICUSPID REGURGITATION MITRAL VALVE: MILD MITRAL REGURGITATION PULMONIC VALVE: NORMAL AORTIC VALVE: NORMAL PERICARDIAL EFFUSION: NONE AORTIC ROOT: NORMAL LEFT VENTRICULAR WALL MOTION: NORMAL. DOPPLER/COLOR FLOW: NORMAL. COMMENTS: 1. NORMAL LEFT VENTRICULAR SYSTOLIC FUNCTION, EJECTION FRACTION 60-65%, NORMAL WALL MOTION. 2. NORMAL DIASTOLIC FUNCTION. 3. MILD MITRAL REGURGITATION. TECHNOLOGIST: SHANNON BONILLA
--- NOTE | 2024-11-03 15:21 | RAD REPORT ---
EXAMINATION: CT HEAD WITHOUT CONTRAST CLINICAL INDICATION: Female, 64 years old.Brain assessment TECHNIQUE: Axial CT images from the skull base to the vertex without intravenous contrast. Coronal an d sagittal reformatted images were created from the data set. One or more of the following dose reduction techniques were used: Automated exposure control, adjustment of the mA and/or kV according to patient size, and/or iterative reconstruction. Unless otherwise specified, incidental findings do not require dedicated imaging follow-up. [id number]. COMPARISON: 11/02/2024 FINDINGS: INTRACRANIAL: No acute intracranial hemorrhage. No hydrocephalus. No mass effect or midline shift. Mo derate chronic small vessel ischemic changes.Age advanced cerebral atrophy. There is still some evans-white differentiation. The sulci are not effaced. VASCULATURE: No visualized abnormalities in the arteries or dural venous sinuses. SCALP/SKULL: No significant soft tissue or osseous abnormalities. Endotracheal tube and enteric tube. SINUSES: The visualized paranasal sinuses and mastoid air cells are predominantly clear. IMPRESSION: No acute intracranial abnormality. Evans-white differentiation appears grossly preserved. No evidence of sulcal effacement to suggest cerebral edema and/or a global hypoxic ischemic event. Could consider MRI for further evaluation.
--- NOTE | 2024-11-03 15:42 | P.PN ---
Subjective Date of Service: 11/03/24 Chief Complaint: Cardiac arrest, acute respiratory failure, sepsis Status post cardiac arrest. Patient remained unresponsive, no spontaneous breathing. Patient is now requiring sedation. Blood pressure has been stable without vasopressors. Low-grade fever up to 100.3 noted. Physical Examination - Vital Signs Temperature: 99.0 F Blood Pressure: 154/93 Pulse: 78 Respirations: 16 Pulse Ox (%): 93 - Studies Laboratory Data (last 24 hrs) 11/02/24 14:25 WBC 36.20 H Hgb 13.3 Hct 42.7 Plt Count 217 Assessment And Plan - Plan Physical examination General: Alert and oriented x3, NAD, HEENT: Conjunctiva not pale, anicteric sclera Neck: Supple, no elevated JVD Heart: Heart sounds 1 and 2 normal, regular rhythm, normal rate, no pedal edema Lungs: Clear to auscultation bilaterally, adequate breath sounds bilaterally, no rhonchi or crackles. Abdomen: Soft, nondistended, nontender, normal bowel sounds. Extremities: No tenderness, no deformity Skin: Normal skin turgor, no rash, no nodules or ulcers. Neuro: No focal motor deficit. Normal speech. Psychiatry: Normal mood, no agitation. Diagnosis Cardiac arrest/asystole Acute cystitis without hematuria Acute metabolic encephalopathy Anoxic encephalopathy Acute respiratory failure with hypoxia and hypercapnia Sepsis. History of multiple sclerosis Cardiac arrest/asystole Unknown etiology Patient noted to have sepsis with UTI Echocardiogram shows normal EF. Lactic acidosis Troponin negative. Patient is normotensive without vasopressors. Cardiology input appreciated. Continue telemetry Acute metabolic encephalopathy Anoxic encephalopathy Acute respiratory failure with hypoxia and hypercapnia Constricted pupil, nonreactive No corneal reflex. Patient currently on life support, no spontaneous breathing movement. Poor prognosis. Neurology consulted to evaluate for brain . Recommended withdrawal of care and hospice once brain diabetes established. Patient intubated on mechanical ventilation. Pulmonary Dr. Breen is following and managing. Suprapubic catheter associated UTI POA Sepsis CT abdomen indicates mild to moderate left hydronephrosis and mild right hydronephrosis. Continue IV Merrem and vancomycin Follow cultures Infectious disease consulted. Chronic pain syndrome Patient is on chronic opioids. Patient is on methadone and other psychoactive medication. Possibility of drug overdose leading to cardiac arrest. History multiple sclerosis. Patient is not on any disease modifying medication. Goals of care Poor prognosis given anoxic encephalopathy. Neurology Dr. Gibbs is evaluating for brain . Hospice consult for withdrawal of care once brain is established. DVT prophylaxis with Lovenox subQ Discharge Plan: Home
--- NOTE | 2024-11-03 15:50 | CON ---
History Of Present Illness: This is a 64-year-old female. I was consulted for urinary tract infecti ons, abscess. The patient was brought in on November 02 with significant past medical history of mul tiple sclerosis, hypertension, bedbound status, chronic low back pain, hypertension, gastroesophageal reflux disease, suprapubic catheter placement. The patient was bedbound and chronic low back pain, brought in with cardiac arrest. The patient was noted to have snoring as per family. EMS was called and the patient was found in asystole. CPR was initiated and it went on for 15 minutes. The patien t regained heart beat and blood pressure. Currently, the patient is on meropenem and vancomycin. Th e patient was recently discharged with a 5-day course of Zyvox and Levaquin. Past Medical History: As per HPI. Social History: Nonsmoker, nondrinker. Family History: Noncontributory. Medications: Merrem and vancomycin. See MAR for other medications. Allergies: ERYTHROMYCIN, PENICILLIN, SULFA DRUGS. Review of Systems: Unable to obtain. Physical Examination: General: This is a 64-year-old female, lying in bed, unresponsive to painful stimuli. Vital Signs: Temperature 98, pulse 80, respirations 16, blood pressure 119/84. HEENT: Pupils are unresponsive. ET tube in place. Neck: Supple. Lungs: Basal crackles. Heart S1, S2. Regular. Abdomen: Soft, nontender. Bowel sounds present. Extremities: Trace edema. Laboratory Data: Shows WBC 25,000, down from 36,000; hemoglobin 12.7; platelets are 249. Chemistry shows BUN of 25, creatinine 0.4. Albumin level is 2.2. Micro data shows urine cultures are growing gram-negative rods. Blood cultures are pending. Assessment And Plan: 1. A 64-year-old female with significant past medical history of cardiac arrest and multiple sclerosi s, being considered for brain and possible organ donation if family agrees to it. We will recom mend to stop vancomycin, continue meropenem until family makes a decision regarding her sustaining of life. 2. Leukocytosis. 3. Moderate protein-calorie malnourishment. 4. Multiple sclerosis. Continue supportive care and current treatment. We will follow the patient as needed. NF/MODL Voice ID: [id number] Report ID: [id number]
[2024-11-03 17:05] LABS: Magnesium 2.2 mg/dL (1.6-2.4); Phosphorus 2.8 mg/dL (2.5-4.9)
--- NOTE | 2024-11-03 18:56 | CON ---
Reason For Consultation: Consultation was called because of unresponsive patient after prolonged car diac arrest. History Of Present Illness: Ms. Erazo is a 64-year-old patient with multiple sclerosis, hypertensio n, who has been bed-bound, has chronic low back pain, hypertension, GERD, and the suprapubic catheter due to her MS. On 11/02/2024, patient was noted by family to be snoring, but she was not awakened or stimulated at that point. Subsequently, they found that she was unresponsive and it is unclear ho w long time elapsed between that. The emergency medical services were summoned and she was found to be in asystole. Advanced cardiopulmonary resuscitation was initiated and after 15 minutes, there was return of spontaneous circulation. She was intubated in the field. Her arterial blood gas after in tubation was pH of 7.17, pCO2 of 48.1, and pO2 of 449. Her lactic acid at the time of admission was 10.3 and she has an elevated BUN and iron gap, elevated liver function studies, elevated-beta natriur etic peptide up to 11,131. A CT scan of the head done yesterday showed no acute intracranial abnorma lities. Ventricles were normal in caliber. No extra-axial fluid collection. No significant hypoden sity within the brain and no fluid within the visualized sinuses. That study was done on the the report timing was 3:42 p.m. Study was compared to a prior scan from 2019. Today, there is a r epeat head CT imaging with angiogram of the head pending. The patient is now in ICU on ventilator and since admission no more than 24 hours unresponsive to any stimulation, noxious in the extremities. Visual threat response not present. No spontaneous breath ing over the ventilator. No spontaneous movement and she is intubated and sustained by the ventilato r. Past Medical History: As noted. Allergies: ERYTHROMYCIN, PENICILLIN, SULFA, TETRACYCLINE, AND ERYTHROMYCIN. Medications: At home, amitriptyline 10 mg at bedtime, methadone 10 mg every 6 hours as needed, Flexe ril 10 mg 3 times daily, Pepcid 30 mg daily. Past Surgical History: She has had back surgery. Family History: Noncontributory. Social History: No recent alcohol, tobacco, or IV drug use. However, her toxicology screen was posi tive for marijuana and benzodiazepines. Alcohol level was less than 10 and negative for amphetamine, PCP, barbiturates, opiates, salicylates. Laboratory Studies: White blood cell count is 25 and yesterday 36.2, neutrophils are 94.5, hemoglobi n 12.7, platelets 249. INR 1.32. The chemistries, sodium 140, potassium 3.4, chloride 108, carbon d ioxide 27, BUN 25, creatinine 0.4, glucose 103, calcium 8.3. Phosphorus 2.4, magnesium 2.2. AST 132 , ALT 81, alkaline phosphatase 221. Urinalysis: Extreme turbidity, 1+ blood, 500 esterase, 20-50 re d blood cells, white blood cells greater than 50, bacteria greater than 50, many budding yeast, and t race protein. Review of Systems: Unable to be performed. The patient is intubated and unresponsive. Physical Examination: Vital Signs: Blood pressure is 146/90, pulse of 84, respiratory rate set to 16 and she does not liza the over the vent. Temperature 99, oxygen saturation 98%. Weight 169 pounds, height 5 feet 6 inches , BMI 27.2. Neuro: She is intubated without sedation. She has no spontaneous eye opening. She does not breathe over the machine. She has no spontaneous movement of arms and legs. No visual threat response, no doll's eyes response, and no gag type response with the intubation. Stimulation of the extremities e voke no movement. She has decerebrate posturing of the feet with the toes fully pointed out in a sti ff fashion. Her right hand is flexed and the tone is mildly increased on the left. Tone is less inc reased compared to the right upper extremity. No available way to assess sensation, coordination, or gait. Assessment And Plan: Ms. Erazo is a 64-year-old patient with history of multiple sclerosis, hyperte nsion. She has positive marijuana use by her drug screen. She currently has severe lactic acidosis. Postresuscitation, pH was 7.1 after she was intubated with the elevated oxygen from intubation and elevated CO2 from respiratory failure. Her head CT scan initially shows no acute intracranial abnorm alities and interval CT scan of the head and CT angiogram will be done to look for cerebral perfusion . An EEG will be done to evaluate electrical activities emanating from the cortex. Currently, gurpreet nue supportive care, continue IV hydration, and the very elevated white count may likely be secondary to an aspiration pneumonia and the possibility of sepsis is very strong. At this point, the patient is being evaluated by [facility] for organ donation. Plan: We will follow up the EEG and CT angiogram of the head and we will make further recommendation s. However, at this point today neurological examination is consistent with brain showing no b rainstem reflexes and no spontaneous movement of arms and legs. No visual threat response and the pu pils are not fully dilated, but showed no reactivity. We will follow the patient once the studies are done and when the patient's son is available. Full d iscussion about the options for donation will be entered into and we will confer with the hospitalist to make a final decision about the patient's disposition. BERNIE/SIVAL Voice ID: [id number] Report ID: [id number]
[2024-11-04 05:46] LABS: Absolute Lymphocytes (CBC) 0.6 K/uL (0.7-4.9); Absolute Monocytes 0.6 K/uL (0.1-1.3); Basophils % 0.1 % (0-1.3); Eosinophils % 0.2 % (0-4.4); Hematocrit 39.2 % (36.0-45.0); Lymphocytes % 3.9 % (15.3-44.8); MCH 30.8 pg (27.0-35.0); MCHC 33.1 g/dL (32.0-36.0); MPV 7.4 fL (7.6-11.3); Monocytes % 3.6 % (3.3-12.3); Neutrophils % 92.2 % (41.7-73.7); Platelets 231 thou/uL (152-406); RBC Red Blood Cell Count 4.21 M/uL (3.86-4.86); Red Cell Distribution Width 15.3 % (12.1-15.2)
[2024-11-04 06:10] LABS: Anion Gap 10.7 mEq/L (5.0-15.0); Magnesium 2.1 mg/dL (1.6-2.4); Phosphorus 1.7 mg/dL (2.5-4.9); Potassium 2.7 mEq/L (3.5-5.1)
[2024-11-04] MEDS: POTASSIUM PHOS IN 0.9 % NACL 15 MMOL/250 ML BAG IV ONE (06:37)
[2024-11-04] MEDS: KCL 20 MEQ/100 mL IVPB 20 MEQ/100 ML BAG IV SCH (07:15)
--- NOTE | 2024-11-04 14:26 | EEG ---
CHART: [id number] TEST ID#: [id number] DATE OF STUDY: 11/04/2024 THE EEG WAS RECORDED PORTABLE IN THE ICU ON A 17 CHANNEL MACHINE. ELECTRODES WERE APPLIED IN THE USUAL MANNER USING THE INTERNATIONAL 10-20 SYSTEM. THE EEG CONSISTS OF LOW VOLTAGE 3-4 HZ ACTIVITY EXPRESSED IN THE CENTRAL REGIONS LASTING 1-2 SECONDS BY 7-9 SECONDS OF SUPPRESSION. THERE ARE NO FOCAL OR LATERALIZING FEATURES. NO EPILEPTIFORM ACTIVITY APPEARS. SLEEP DID NOT OCCUR. HYPERVENTILATION WAS NOT PERFORMED. PHOTIC STIMULATION WAS NOT PERFORMED. IMPRESSION: THIS IS A SEVERELY ABNORMAL EEG DUE TO A LOW VOLTAGE SUPPRESSION - BURST BACKGROUND. THIS FINDING INDICATES THE PRESENCE OF A SEVERE DIFFUSE DISTURBANCE IN CEREBRAL FUNCTION. IN THE ABSENCE OF DEEP SEDATING MEDICATIONS, SEVERE ELECTROLITE ABNORMALITIES OR HYPOTHERMIA THIS FINDING INDICATES A VERY POOR PROGNOSIS FOR RECOVERY OF BRAIN FUNCTION.
--- NOTE | 2024-11-04 18:37 | P.PN ---
Subjective Date of Service: 11/04/24 Chief Complaint: Cardiac arrest, acute respiratory failure, sepsis Status post cardiac arrest. Patient remain unresponsive, noted some spontaneous breathing today. She is not requiring sedation. Blood pressure has been stable without vasopressors. Physical Examination - Vital Signs Temperature: 98.0 F Blood Pressure: 162/104 Pulse: 107 Respirations: 19 Pulse Ox (%): 97 - Studies Microbiology Data (last 24 hrs): 11/02/24 14:25 Blood - Blood Blood Culture Gram Stain - Final 11/02/24 14:15 Blood - Blood Blood Culture Gram Stain - Final Assessment And Plan - Plan Physical examination General: Alert and oriented x3, NAD, HEENT: Conjunctiva not pale, anicteric sclera Neck: Supple, no elevated JVD Heart: Heart sounds 1 and 2 normal, regular rhythm, normal rate, no pedal edema Lungs: Clear to auscultation bilaterally, adequate breath sounds bilaterally, no rhonchi or crackles. Abdomen: Soft, nondistended, nontender, normal bowel sounds. Extremities: No tenderness, no deformity Skin: Normal skin turgor, no rash, no nodules or ulcers. Neuro: Decorticate posturing to tracheal suctioning, nonpurposeful eye movement. Psychiatry: Normal mood, no agitation. Diagnosis Cardiac arrest/asystole Acute cystitis without hematuria Acute metabolic encephalopathy Anoxic encephalopathy Acute respiratory failure with hypoxia and hypercapnia Sepsis. History of multiple sclerosis Cardiac arrest/asystole Unknown etiology Patient noted to have sepsis with UTI Echocardiogram shows normal EF. Lactic acidosis Troponin negative. Patient is normotensive without vasopressors. Cardiology input appreciated. Continue telemetry Acute metabolic encephalopathy Anoxic encephalopathy Acute respiratory failure with hypoxia and hypercapnia Constricted pupil, nonreactive No corneal reflex. Patient currently on life support, no spontaneous breathing movement. Poor prognosis. Neurology consulted to evaluate for brain . Recommended withdrawal of care and hospice once brain diabetes established. Patient intubated on mechanical ventilation. Pulmonary Dr. Breen is following and managing. Suprapubic catheter associated UTI POA Sepsis CT abdomen indicates mild to moderate left hydronephrosis and mild right hydronephrosis. Continue IV Merrem and vancomycin Follow cultures Infectious disease consulted. Chronic pain syndrome Patient is on chronic opioids. Patient is on methadone and other psychoactive medication. Possibility of drug overdose leading to cardiac arrest. History multiple sclerosis. Patient is not on any disease modifying medication. Goals of care Poor prognosis given anoxic encephalopathy. Neurology Dr. Gibbs is evaluating for brain . Hospice consult for withdrawal of care once brain is established. 11/04 Patient noted to have some spontaneous breathing. Neurology evaluated patient. EEG read by neurology Dr. Gibbs and reported findings suggestive of the presence of a severe diffuse disturbance of cerebral function which denot poor prognosis for recovery of brain function. Withdrawal of care and hospice recommended. 2 aerobic blood cultures growing gram-negative rods. Urine cultures growing gram-negative rods. Continue IV meropenem for now. Overall poor prognosis and recommended withdrawal of care and hospice. DVT prophylaxis with Lovenox subQ Discharge Plan: Home
[2024-11-05] MEDS: MORPHINE 2 MG/ML SYR IV PRN (01:59)
[2024-11-05 06:00] LABS: Absolute Lymphocytes (CBC) 0.6 K/uL (0.7-4.9); Absolute Monocytes 0.7 K/uL (0.1-1.3); Absolute Neutrophil 13.9 K/uL (1.8-8.0); Basophils % 0.1 % (0-1.3); Hemoglobin 12.4 g/dL (12.0-15.0); Lymphocytes % 4.2 % (15.3-44.8); MCH 30.4 pg (27.0-35.0); MCHC 32.6 g/dL (32.0-36.0); MCV 93.2 fL (80-100); MPV 7.2 fL (7.6-11.3); Monocytes % 4.5 % (3.3-12.3); Neutrophils % 91.2 % (41.7-73.7); Platelets 252 thou/uL (152-406); RBC Red Blood Cell Count 4.08 M/uL (3.86-4.86); Red Cell Distribution Width 15.6 % (12.1-15.2)
[2024-11-05 06:14] LABS: Anion Gap 9.7 mEq/L (5.0-15.0); Magnesium 1.9 mg/dL (1.6-2.4); Phosphorus 2.2 mg/dL (2.5-4.9); Potassium 2.7 mEq/L (3.5-5.1)
[2024-11-05] MEDS: POTASSIUM PHOS IN 0.9 % NACL 15 MMOL/250 ML BAG IV ONE (07:45)
[2024-11-05] MEDS: KCL 20 MEQ/100 mL IVPB 20 MEQ/100 ML BAG IV SCH ×2 (07:45→17:14)
--- NOTE | 2024-11-05 15:32 | P.PN ---
Subjective Date of Service: 11/05/24 Chief Complaint: Cardiac arrest, acute respiratory failure, sepsis No major changes. Patient remain unresponsive, breathing slightly over the vent. She is not requiring sedation. Physical Examination - Vital Signs Temperature: 98.0 F Blood Pressure: 162/104 Pulse: 107 Respirations: 19 Pulse Ox (%): 97 - Studies Microbiology Data (last 24 hrs): 11/02/24 13:55 Clean Catch Urine [place] Count - Final >100,000 CFU/ML. 11/02/24 13:55 Clean Catch Urine - Final Pseudomonas Aeruginosa Staph Epidermidis 11/02/24 14:15 Blood - Blood Blood Culture Gram Stain - Final 11/02/24 14:25 Blood - Blood Blood Culture Gram Stain - Final Assessment And Plan - Plan Physical examination General: Alert and oriented x3, NAD, HEENT: Conjunctiva not pale, anicteric sclera Neck: Supple, no elevated JVD Heart: Heart sounds 1 and 2 normal, regular rhythm, normal rate, no pedal edema Lungs: Clear to auscultation bilaterally, adequate breath sounds bilaterally, no rhonchi or crackles. Abdomen: Soft, nondistended, nontender, normal bowel sounds. Skin: Normal skin turgor, no rash, no nodules or ulcers. Neuro: Decorticate posturing to tracheal suctioning, no eye movement today. Diagnosis Cardiac arrest/asystole Acute cystitis without hematuria Acute metabolic encephalopathy Anoxic encephalopathy Acute respiratory failure with hypoxia and hypercapnia Sepsis. History of multiple sclerosis Cardiac arrest/asystole Unknown etiology Patient noted to have sepsis with UTI Echocardiogram shows normal EF. Lactic acidosis Troponin negative. Patient is normotensive without vasopressors. Cardiology input appreciated. Continue telemetry Acute metabolic encephalopathy Anoxic encephalopathy Acute respiratory failure with hypoxia and hypercapnia Constricted pupil, nonreactive No corneal reflex. Patient currently on life support, no spontaneous breathing movement. Poor prognosis. Neurology consulted to evaluate for brain . Recommended withdrawal of care and hospice once brain diabetes established. Patient intubated on mechanical ventilation. Pulmonary Dr. Breen is following and managing. Suprapubic catheter associated UTI POA Sepsis CT abdomen indicates mild to moderate left hydronephrosis and mild right hydronephrosis. Continue IV Merrem and vancomycin Blood cultures grew Carbapenem resistant Pseudomonas. Infectious disease is following Chronic pain syndrome Patient is on chronic opioids. Patient is on methadone and other psychoactive medication. Possibility of drug overdose leading to cardiac arrest. History multiple sclerosis. Patient is not on any disease modifying medication. Goals of care Poor prognosis given anoxic encephalopathy. Neurology Dr. Gibbs is evaluating for brain . Hospice consult for withdrawal of care once brain is established. 11/04 Patient noted to have some spontaneous breathing. Neurology evaluated patient. EEG read by neurology Dr. Gibbs and reported findings suggestive of the presence of a severe diffuse disturbance of cerebral function which denot poor prognosis for recovery of brain function. Withdrawal of care and hospice recommended. 2 aerobic blood cultures growing gram-negative rods. Urine cultures growing gram-negative rods. Continue IV meropenem for now. Overall poor prognosis and recommended withdrawal of care and hospice. 11/05 No change in neurologic condition compared to yesterday. Patient is vent dependent, reathing slightly over the vent. No purposeful movement. Blood culture growing Carbapenem resistant Pseudomonas however her white cell count trended down significantly. Pseudomonas is sensitive to ciprofloxacin. Will therefore add Cipro. Goals of care discussed with patient's son Jose. Patient with poor prognosis for neurologic recovery as determined by neurology. Recommending withdrawal of care Jose made patient DNR. He also states that he is in conversation with the rest of the family regarding withdrawal of care. DVT prophylaxis with Lovenox subQ
[2024-11-05] MEDS: CIPROFLOXACIN 400mg IV 400 MG/200 ML BAG IV SCH (20:38)
[2024-11-05] MEDS: FENTANYL CITR 100 MCG/2 ML IV ONE (23:21)
[2024-11-06 05:52] LABS: Absolute Lymphocytes (CBC) 0.8 K/uL (0.7-4.9); Absolute Monocytes 0.5 K/uL (0.1-1.3); Absolute Neutrophil 10.5 K/uL (1.8-8.0); Basophils % 0.1 % (0-1.3); Hematocrit 34.7 % (36.0-45.0); Hemoglobin 11.3 g/dL (12.0-15.0); Lymphocytes % 6.8 % (15.3-44.8); MCH 30.5 pg (27.0-35.0); MCHC 32.6 g/dL (32.0-36.0); MCV 93.4 fL (80-100); MPV 7.4 fL (7.6-11.3); Monocytes % 4.5 % (3.3-12.3); Neutrophils % 88.6 % (41.7-73.7); Platelets 198 thou/uL (152-406); RBC Red Blood Cell Count 3.71 M/uL (3.86-4.86); Red Cell Distribution Width 15.6 % (12.1-15.2)
[2024-11-06 06:03] LABS: Anion Gap 7.2 mEq/L (5.0-15.0); BUN Blood Urea Nitrogen 17 mg/dL (7-18); Bicarbonate 28 mEq/L (21-32); Glucose Level 108 mg/dL (74-106); Potassium 3.2 mEq/L (3.5-5.1); Sodium Level 148 mEq/L (136-145)
[2024-11-06 06:08] LABS: Glomerular Filtration Rate 125 ml/min (=/>90)
[2024-11-06 06:14] LABS: Magnesium 1.8 mg/dL (1.6-2.4)
[2024-11-06] MEDS: MAGNESIUM SULFATE 1 gm IVPB 1 GM/100 ML BAG IV ONE (06:29)
[2024-11-06] MEDS: POTASSIUM PHOS IN 0.9 % NACL 15 MMOL/250 ML BAG IV ONE (06:29)
[2024-11-06] MEDS: KCL 20 MEQ/100 mL IVPB 20 MEQ/100 ML BAG IV SCH (06:30)
[2024-11-06 08:50] LABS: Blood Morphology Comment NOT SEEN (NOT SEEN); Platelet Estimate ADEQ; White Blood Cell Scan OK (OK)
[2024-11-06] MEDS: D5.45NS W/KCL 20MEQ 20 MEQ/1,000 ML BAG IV SCH (08:58)
--- NOTE | 2024-11-06 10:24 | RAD REPORT ---
EXAMINATION: ONE VIEW CHEST XR CLINICAL INDICATION: ETT placement TECHNIQUE: Frontal chest projection is submitted. Examination is limited by patient positioning and t echnique. COMPARISON: 11/02/2024 FINDINGS: Mild opacity is present in the medial left lung base may represent atelectasis or infiltrate. Small p leural effusions. Mild elevated right hemidiaphragm. Right-sided venous catheter has tip in the right atrium. Enteric tube is in the stomach. Endotracheal tube tip is above the christen at the level of the clavicular heads. The heart is upper limit of normal in size.
--- NOTE | 2024-11-06 14:08 | P.PN ---
Subjective Date of Service: 11/06/24 Chief Complaint: Cardiac arrest, acute respiratory failure, sepsis No change in neurologic condition. Patient remain unresponsive, breathing slightly over the vent. Physical Examination - Vital Signs Temperature: 97.6 F Blood Pressure: 162/100 Pulse: 88 Respirations: 17 Pulse Ox (%): 93 - Studies Microbiology Data (last 24 hrs): 11/02/24 13:55 Clean Catch Urine [place] Count - Final >100,000 CFU/ML. 11/02/24 13:55 Clean Catch Urine - Final Pseudomonas Aeruginosa Staph Epidermidis Assessment And Plan - Plan Physical examination General: Alert and oriented x3, NAD, Heart: Heart sounds 1 and 2 normal, regular rhythm, normal rate, no pedal edema Lungs: Clear to auscultation bilaterally, adequate breath sounds bilaterally, no rhonchi or crackles. Abdomen: Soft, nondistended, nontender, normal bowel sounds. Skin: Normal skin turgor, no rash, no nodules or ulcers. Neuro: Decorticate posturing, no eye movement today. Diagnosis Cardiac arrest/asystole Acute cystitis without hematuria Acute metabolic encephalopathy Anoxic encephalopathy Acute respiratory failure with hypoxia and hypercapnia Sepsis. History of multiple sclerosis Cardiac arrest/asystole Unknown etiology Patient noted to have sepsis with UTI Echocardiogram shows normal EF. Lactic acidosis Troponin negative. Patient is normotensive without vasopressors. Cardiology input appreciated. Continue telemetry Acute metabolic encephalopathy Anoxic encephalopathy Acute respiratory failure with hypoxia and hypercapnia Constricted pupil, nonreactive No corneal reflex. Patient currently on life support, no spontaneous breathing movement. Poor prognosis. Neurology consulted to evaluate for brain . Recommended withdrawal of care and hospice once brain diabetes established. Patient intubated on mechanical ventilation. Pulmonary Dr. Breen is following and managing. Suprapubic catheter associated UTI POA Sepsis CT abdomen indicates mild to moderate left hydronephrosis and mild right hydronephrosis. Continue IV Merrem and vancomycin Blood cultures grew Carbapenem resistant Pseudomonas. Infectious disease is following Chronic pain syndrome Patient is on chronic opioids. Patient is on methadone and other psychoactive medication. Possibility of drug overdose leading to cardiac arrest. History multiple sclerosis. Patient is not on any disease modifying medication. Goals of care Poor prognosis given anoxic encephalopathy. Neurology Dr. Gibbs is evaluating for brain . Hospice consult for withdrawal of care once brain is established. 11/04 Patient noted to have some spontaneous breathing. Neurology evaluated patient. EEG read by neurology Dr. Gibbs and reported findings suggestive of the presence of a severe diffuse disturbance of cerebral function which denot poor prognosis for recovery of brain function. Withdrawal of care and hospice recommended. 2 aerobic blood cultures growing gram-negative rods. Urine cultures growing gram-negative rods. Continue IV meropenem for now. Overall poor prognosis and recommended withdrawal of care and hospice. 11/05 No change in neurologic condition compared to yesterday. Patient is vent dependent, reathing slightly over the vent. No purposeful movement. Blood culture growing Carbapenem resistant Pseudomonas however her white cell count trended down significantly. Pseudomonas is sensitive to ciprofloxacin. Will therefore add Cipro. Goals of care discussed with patient's son Jose. Patient with poor prognosis for neurologic recovery as determined by neurology. Recommending withdrawal of care Jose made patient DNR. He also states that he is in conversation with the rest of the family regarding withdrawal of care. 11/06 No change in neurologic condition. I had a meeting with patient's son and ex-. Patient started wants to proceed with comfort measures and hospice. Patient is an organ donor. Social service consulted for inpatient hospice. DVT prophylaxis with Lovenox subQ
--- NOTE | 2024-11-06 16:00 | RAD REPORT ---
EXAM: Chest Single View HISTORY: ETT placement COMPARISON: 11/06/24 FINDINGS: Endotracheal tube has been advanced and is now at the level of the aortic arch in satisfactory positi on. Right IJ approach central line with tip overlying the superior cavoatrial junction. Enteric tube below the diaphragm. IMPRESSION: Endotracheal tube is in satisfactory position at the level of the aortic arch.
[2024-11-06 23:59] LABS: Absolute Monocytes 0.7 K/uL (0.1-1.3); Absolute Neutrophil 8.4 K/uL (1.8-8.0); Basophils % 0.2 % (0-1.3); Eosinophils % 0.1 % (0-4.4); Hematocrit 36.1 % (36.0-45.0); Lymphocytes % 10.1 % (15.3-44.8); MCH 30.5 pg (27.0-35.0); MCHC 33.1 g/dL (32.0-36.0); MCV 91.9 fL (80-100); MPV 7.6 fL (7.6-11.3); Monocytes % 6.6 % (3.3-12.3); Platelets 210 thou/uL (152-406); RBC Red Blood Cell Count 3.93 M/uL (3.86-4.86); Red Cell Distribution Width 15.4 % (12.1-15.2)
[2024-11-07 00:07] LABS: PT Prothrombin Time 12.7 SECONDS (10.0-13.0); Protime INR 1.12
[2024-11-07 00:10] LABS: Specific Gravity 1.015 (1.005-1.030); Urine Bacteria 20-50 /HPF (<20); Urine Bilirubin NEGATIVE (Negative); Urine Blood 3+ (OVER) (Negative); Urine Clarity Extremely Turbid (Clear); Urine Color Light-Orange (Yellow); Urine Crystals Unidentified Moderate /HPF (None Seen); Urine Culture Reflex Order REFLEXED; Urine Glucose NEGATIVE (Negative); Urine Ketones NEGATIVE (Negative); Urine Microscopic Reflex YN ORDER UMIC; Urine Mucus Slight /HPF (None Seen); Urine Nitrite 1+ (Negative); Urine Protein 1+ (Negative); Urine RBC 21-50 /HPF (None Seen); Urine Urobilinogen Normal (Normal); Urine WBC 20-50 /HPF (<5); Urine Yeast (Budding) Many /HPF (None Seen)
[2024-11-07 00:17] LABS: ALT/SGPT 43 U/L (13-56); AST/SGOT 62 U/L (15-37); Albumin/Globulin Ratio 0.6 (1.1-1.8); Alkaline Phosphatase 86 U/L (45-117); Anion Gap 7.1 mEq/L (5.0-15.0); BUN Blood Urea Nitrogen 17 mg/dL (7-18); Bicarbonate 28 mEq/L (21-32); Bilirubin Direct 0.4 mg/dL (0-0.2); Bilirubin Indirect, Calculated 0.6 mg/dL (0.2-0.8); Globulin 3.5 g/dL (2.3-3.5); Glomerular Filtration Rate 122 ml/min (=/>90); Glucose Level 117 mg/dL (74-106); Lipase 13 U/L (13-75); Magnesium 2.1 mg/dL (1.6-2.4); Phosphorus 1.8 mg/dL (2.5-4.9); Potassium 3.1 mEq/L (3.5-5.1); Protein, Total 5.5 g/dL (6.4-8.2); Sodium Level 148 mEq/L (136-145)
[2024-11-07] MEDS: CIPROFLOXACIN 400mg IV 400 MG/200 ML BAG IV SCH (00:32)
[2024-11-07 00:33] LABS: HCG, Quantitative < 1 mIU/mL (1-3)
[2024-11-07] MEDS: Meropenem 1,000 MG in NA CHLORIDE 0.9% 100 ML IV SCH (00:33)
[2024-11-07] MEDS: NA CHLORIDE 0.9% 100 ML ONE (00:44)
[2024-11-07] MEDS: Ringers Lactate 1,000 ML IV SCH (01:00)
[2024-11-07] MEDS: KCL 20 MEQ/100 mL IVPB 20 MEQ/100 ML BAG IV SCH ×2 (01:54→12:33)
[2024-11-07] MEDS: POTASSIUM PHOS IN 0.9 % NACL 15 MMOL/250 ML BAG IV ONE (01:54)
--- NOTE | 2024-11-07 02:25 | RAD REPORT ---
TIME OF STUDY: 11/06/2024 10:57 PM RAMP MANAGER REASON FOR EXAM: [facility] order COMPARISON: None. FINDINGS: AP view of the chest was obtained, chest 1 view. Lungs: The lungs are slightly underinflated. An endotracheal tube is noted with its tip 2.9 cm above the christen. A nasogastric tube is noted with its tip and side-port below the left hemidiaphragm. A right IJ central venous catheter is noted with the tip at the atriocaval junction. The right lung measures 14.0 cm from apex to the dome of the right hemidiaphragm. The left lung measu res 15.9 cm from apex to dome of the left hemidiaphragm. The width of the lung at the highest hemidiaphragm dome measures 26.4 cm. The width of the lung at the aortic knob measures 24.4 cm. Pleura: No pneumothorax. There is no pleural effusion. Heart and Mediastinum: Normal cardiomediastinal silhouette and great vessels.. The aorta is mildly atherosclerotic. Bones: No acute bony abnormality.. IMPRESSION: 1. Lung measurements as noted above. Electronically signed by: Mario Alberto Kelly MD 11/07/2024 12:51 AM RAMP MANAGER RP Due to temporary technical issues with the PACS/[employer] reporting system, reports are being jazlyn d by the in-house radiologist without review as a courtesy to ensure prompt reporting the interpreting radiologist is fully responsible for the content of the report. Transcribed Date/Time: 11/07/2024 2:25 AM
[2024-11-07 04:12] VITALS: BMI 28.3
[2024-11-07 07:26] LABS: Absolute Lymphocytes (CBC) 1.2 K/uL (0.7-4.9); Absolute Monocytes 0.8 K/uL (0.1-1.3); Absolute Neutrophil 9.7 K/uL (1.8-8.0); Basophils % 0.4 % (0-1.3); Eosinophils % 0.1 % (0-4.4); Hematocrit 38.9 % (36.0-45.0); Hemoglobin 12.7 g/dL (12.0-15.0); Lymphocytes % 10.2 % (15.3-44.8); MCH 30.3 pg (27.0-35.0); MCHC 32.8 g/dL (32.0-36.0); MCV 92.4 fL (80-100); MPV 7.3 fL (7.6-11.3); Monocytes % 6.5 % (3.3-12.3); Neutrophils % 82.8 % (41.7-73.7); Nucleated Red Blood Cells % 0.1 % (0-0); Platelets 240 thou/uL (152-406); RBC Red Blood Cell Count 4.21 M/uL (3.86-4.86); Red Cell Distribution Width 15.5 % (12.1-15.2)
[2024-11-07 07:38] LABS: PT Prothrombin Time 13.5 SECONDS (10.0-13.0); Protime INR 1.19
[2024-11-07 07:41] LABS: Albumin 2.2 g/dL (3.4-5.0); Albumin/Globulin Ratio 0.6 (1.1-1.8); Anion Gap 7.5 mEq/L (5.0-15.0); Bilirubin Direct 0.5 mg/dL (0-0.2); Bilirubin Indirect, Calculated 0.8 mg/dL (0.2-0.8); Bilirubin Total 1.3 mg/dL (0.2-1.0); Globulin 3.9 g/dL (2.3-3.5); Phosphorus 2.5 mg/dL (2.5-4.9); Potassium 3.5 mEq/L (3.5-5.1); Protein, Total 6.1 g/dL (6.4-8.2)
[2024-11-07] MEDS: ENOXAPARIN 40 MG/0.4 ML SQ SCH (08:40)
[2024-11-07] MEDS: MORPHINE 4 MG/ML SYR IV PRN (08:42)
[2024-11-07 09:31] LABS: Blood Gas Oxyhemoglobin 94.4 % (94-97); Blood O2 Saturation 96.1 % (92-98.5)
[2024-11-07 09:32] LABS: Blood Gas THB 12.3 g/dl (12-18)
[2024-11-07 09:34] LABS: Blood Gas Oxyhemoglobin 95.5 % (94-97); Blood O2 Saturation 97.4 % (92-98.5)
[2024-11-07 09:35] LABS: Blood Gas Oxyhemoglobin 91.9 % (94-97); Blood O2 Saturation 93.6 % (92-98.5)
[2024-11-07 11:30] LABS: Blood Gas THB 12.9 g/dl (12-18); Blood O2 Saturation 95.8 % (92-98.5)
[2024-11-07 12:15] LABS: Calcium Oxalate Crystals- Ur Few /HPF (None Seen); Specific Gravity 1.016 (1.005-1.030); Sqamous Epithelial <5 /HPF (None Seen); Urine Bacteria <20 /HPF (<20); Urine Bilirubin NEGATIVE (Negative); Urine Blood 3+ (Negative); Urine Clarity Extremely Turbid (Clear); Urine Color Yellow (Yellow); Urine Culture Reflex Order REFLEXED; Urine Glucose NEGATIVE (Negative); Urine Ketones NEGATIVE (Negative); Urine Microscopic Reflex YN ORDER UMIC; Urine Nitrite 1+ (Negative); Urine Protein 1+ (Negative); Urine RBC 21-50 /HPF (None Seen); Urine Urobilinogen 1+ (Normal); Urine WBC 20-50 /HPF (<5); Urine Yeast (Budding) Many /HPF (None Seen); Urine Yeast with Hyphae Moderate /HPF (None Seen); Urine pH 6.5 (5.0-7.0)
--- NOTE | 2024-11-07 12:30 | P.PN ---
Subjective Date of Service: 11/07/24 Chief Complaint: Cardiac arrest, acute respiratory failure, sepsis No change in neurologic condition. Patient remain unresponsive, breathing slightly over the vent. She is maintaining her blood pressure. Physical Examination - Vital Signs Temperature: 98.4 F Blood Pressure: 156/97 Pulse: 82 Respirations: 122 Pulse Ox (%): 97 Assessment And Plan - Plan Physical examination General: Alert and oriented x3, NAD, Heart: Heart sounds 1 and 2 normal, regular rhythm, normal rate, no pedal edema Lungs: Clear to auscultation bilaterally, adequate breath sounds bilaterally, no rhonchi or crackles. Abdomen: Soft, nondistended, nontender, normal bowel sounds. Skin: Normal skin turgor, no rash, no nodules or ulcers. Neuro: Decorticate posturing, occasional nonpurposeful eye movement. Diagnosis Cardiac arrest/asystole Acute cystitis without hematuria Acute metabolic encephalopathy Anoxic encephalopathy Acute respiratory failure with hypoxia and hypercapnia Sepsis. History of multiple sclerosis Cardiac arrest/asystole Unknown etiology Patient noted to have sepsis with UTI Echocardiogram shows normal EF. Lactic acidosis Troponin negative. Patient is normotensive without vasopressors. Cardiology input appreciated. Continue telemetry Acute metabolic encephalopathy Anoxic encephalopathy Acute respiratory failure with hypoxia and hypercapnia Constricted pupil, nonreactive No corneal reflex. Patient currently on life support, no spontaneous breathing movement. Poor prognosis. Neurology consulted to evaluate for brain . Recommended withdrawal of care and hospice once brain diabetes established. Patient intubated on mechanical ventilation. Pulmonary Dr. Breen is following and managing. Suprapubic catheter associated UTI POA Sepsis CT abdomen indicates mild to moderate left hydronephrosis and mild right hydronephrosis. Continue IV Merrem and vancomycin Blood cultures grew Carbapenem resistant Pseudomonas. Infectious disease is following Chronic pain syndrome Patient is on chronic opioids. Patient is on methadone and other psychoactive medication. Possibility of drug overdose leading to cardiac arrest. History multiple sclerosis. Patient is not on any disease modifying medication. Goals of care Poor prognosis given anoxic encephalopathy. Neurology Dr. Gibbs is evaluating for brain . Hospice consult for withdrawal of care once brain is established. 11/04 Patient noted to have some spontaneous breathing. Neurology evaluated patient. EEG read by neurology Dr. Gibbs and reported findings suggestive of the presence of a severe diffuse disturbance of cerebral function which denot poor prognosis for recovery of brain function. Withdrawal of care and hospice recommended. 2 aerobic blood cultures growing gram-negative rods. Urine cultures growing gram-negative rods. Continue IV meropenem for now. Overall poor prognosis and recommended withdrawal of care and hospice. 11/05 No change in neurologic condition compared to yesterday. Patient is vent dependent, reathing slightly over the vent. No purposeful movement. Blood culture growing Carbapenem resistant Pseudomonas however her white cell count trended down significantly. Pseudomonas is sensitive to ciprofloxacin. Will therefore add Cipro. Goals of care discussed with patient's son Jose. Patient with poor prognosis for neurologic recovery as determined by neurology. Recommending withdrawal of care Jose made patient DNR. He also states that he is in conversation with the rest of the family regarding withdrawal of care. 11/06 No change in neurologic condition. I had a meeting with patient's son and ex-. Patient started wants to proceed with comfort measures and hospice. Patient is an organ donor. Social service consulted for inpatient hospice. 11/07 No change in neurologic condition Family want to proceed with comfort measures. Patient is an organ donor, plan for organ harvest tomorrow. No escalation of treatment Withdrawal of care and comfort measures initiation pending organ harvest. DVT prophylaxis with Lovenox subQ
--- NOTE | 2024-11-07 13:32 | RAD REPORT ---
EXAMINATION: ONE VIEW CHEST XR CLINICAL INDICATION: Female, 64 years old.,mechanical ventilation TECHNIQUE: Frontal chest projection is submitted. Examination is limited by patient positioning and t echnique. COMPARISON: 11/07/2024 FINDINGS: Persistent retrocardiac mild opacity, may reflect atelectasis or mild airspace disease. The lungs are otherwise grossly clear although suboptimal inspiratory effort somewhat limits evaluation. Endotracheal and enteric tubes unchanged, although patient rotation somewhat limits evaluation. Right IJ CVC in unchanged position. No pneumothorax or sizable effusion. The heart is normal in size. Mediastinal contours are unremarkable. IMPRESSION: Stable findings as above.
[2024-11-07 16:14] LABS: Arterial Blood Carboxyhemoglob 0.8 % (0-1.5); Blood Gas Oxyhemoglobin 97.8 % (94-97); Blood Gas THB 12.5 g/dl (12-18); Blood O2 Saturation 99.5 % (92-98.5)
[2024-11-07] MEDS: FLUCONAZOLE 400 MG IVPB 400 MG/200 ML BAG IV SCH (16:28)
[2024-11-07 16:36] LABS: Absolute Lymphocytes (CBC) 1.1 K/uL (0.7-4.9); Absolute Monocytes 0.7 K/uL (0.1-1.3); Absolute Neutrophil 9.8 K/uL (1.8-8.0); Basophils % 0.1 % (0-1.3); Eosinophils % 0.2 % (0-4.4); Hematocrit 37.3 % (36.0-45.0); Hemoglobin 12.1 g/dL (12.0-15.0); Lymphocytes % 9.2 % (15.3-44.8); MCH 29.9 pg (27.0-35.0); MCHC 32.4 g/dL (32.0-36.0); MCV 92.4 fL (80-100); MPV 7.8 fL (7.6-11.3); Monocytes % 5.9 % (3.3-12.3); Neutrophils % 84.6 % (41.7-73.7); Nucleated Red Blood Cells % 0.1 % (0-0); Platelets 221 thou/uL (152-406); RBC Red Blood Cell Count 4.04 M/uL (3.86-4.86); Red Cell Distribution Width 15.4 % (12.1-15.2)
[2024-11-07 16:37] LABS: PT Prothrombin Time 13.5 SECONDS (10.0-13.0); Protime INR 1.19
[2024-11-07 17:02] LABS: Albumin 2.2 g/dL (3.4-5.0); Albumin/Globulin Ratio 0.6 (1.1-1.8); Anion Gap 9.7 mEq/L (5.0-15.0); Bilirubin Direct 0.4 mg/dL (0-0.2); Bilirubin Indirect, Calculated 0.6 mg/dL (0.2-0.8); Globulin 3.6 g/dL (2.3-3.5); Magnesium 1.9 mg/dL (1.6-2.4); Phosphorus 2.8 mg/dL (2.5-4.9); Potassium 3.7 mEq/L (3.5-5.1); Protein, Total 5.8 g/dL (6.4-8.2)
[2024-11-07] MEDS: KCL 20 MEQ/100 mL IVPB 20 MEQ/100 ML BAG IV ONE (17:42)
--- NOTE | 2024-11-07 18:23 | RAD REPORT ---
EXAMINATION: ONE VIEW CHEST XR CLINICAL INDICATION: Female, 64 years old.,protocol for life gift patient on ventilator TECHNIQUE: Frontal chest projection is submitted. Examination is limited by patient positioning and t echnique. COMPARISON: 11/07/2024 FINDINGS: Endotracheal tube, enteric tube, and right IJ CVC unchanged in position. The lungs are again mildly s uboptimally inflated, with stable retrocardiac mild opacity, may reflect atelectasis or mild airspace disease. No pneumothorax or sizable effusion. The heart is normal in size. Mediastinal cont ours are unremarkable. IMPRESSION: Stable findings as above.
[2024-11-07 20:57] LABS: Blood Gas Oxyhemoglobin 94.6 % (94-97); Blood Gas THB 12.4 g/dl (12-18); Blood O2 Saturation 96.4 % (92-98.5)
[2024-11-08 00:05] LABS: Absolute Lymphocytes (CBC) 1.3 K/uL (0.7-4.9); Absolute Monocytes 0.6 K/uL (0.1-1.3); Absolute Neutrophil 8.9 K/uL (1.8-8.0); Basophils % 0.3 % (0-1.3); Eosinophils % 0.4 % (0-4.4); Hematocrit 36.2 % (36.0-45.0); Hemoglobin 11.8 g/dL (12.0-15.0); Lymphocytes % 11.8 % (15.3-44.8); MCH 30.3 pg (27.0-35.0); MCHC 32.6 g/dL (32.0-36.0); MCV 92.8 fL (80-100); MPV 7.4 fL (7.6-11.3); Monocytes % 5.5 % (3.3-12.3); Nucleated Red Blood Cells % 0.2 % (0-0); Platelets 216 thou/uL (152-406); RBC Red Blood Cell Count 3.91 M/uL (3.86-4.86); Red Cell Distribution Width 15.5 % (12.1-15.2)
[2024-11-08 00:09] LABS: PT Prothrombin Time 13.8 SECONDS (10.0-13.0); Protime INR 1.22
[2024-11-08 00:13] LABS: Albumin 2.1 g/dL (3.4-5.0); Albumin/Globulin Ratio 0.6 (1.1-1.8); Anion Gap 8.5 mEq/L (5.0-15.0); Bilirubin Direct 0.4 mg/dL (0-0.2); Bilirubin Indirect, Calculated 0.6 mg/dL (0.2-0.8); Globulin 3.5 g/dL (2.3-3.5); Magnesium 1.8 mg/dL (1.6-2.4); Phosphorus 2.7 mg/dL (2.5-4.9); Potassium 3.5 mEq/L (3.5-5.1); Protein, Total 5.6 g/dL (6.4-8.2)
[2024-11-08] MEDS: MAGNESIUM SULFATE 1 gm IVPB 1 GM/100 ML BAG IV ONE (00:30)
[2024-11-08] MEDS: KCL 20 MEQ/100 mL IVPB 20 MEQ/100 ML BAG IV SCH ×2 (00:30→09:40)
[2024-11-08 07:47] LABS: Absolute Eosinophils 0.1 K/uL (0-0.5); Absolute Lymphocytes (CBC) 1.1 K/uL (0.7-4.9); Absolute Monocytes 0.5 K/uL (0.1-1.3); Absolute Neutrophil 6.7 K/uL (1.8-8.0); Basophils % 0.2 % (0-1.3); Eosinophils % 1.1 % (0-4.4); Hematocrit 30.5 % (36.0-45.0); Hemoglobin 9.9 g/dL (12.0-15.0); Lymphocytes % 13.1 % (15.3-44.8); MCH 30.2 pg (27.0-35.0); MCHC 32.5 g/dL (32.0-36.0); MCV 92.8 fL (80-100); MPV 7.4 fL (7.6-11.3); Monocytes % 5.8 % (3.3-12.3); Neutrophils % 79.8 % (41.7-73.7); Nucleated Red Blood Cells % 0.1 % (0-0); Platelets 200 thou/uL (152-406); RBC Red Blood Cell Count 3.28 M/uL (3.86-4.86); Red Cell Distribution Width 15.4 % (12.1-15.2)
[2024-11-08 07:55] LABS: Protime INR 1.24
[2024-11-08 08:01] LABS: ALT/SGPT 28 U/L (13-56); AST/SGOT 38 U/L (15-37); Albumin 1.8 g/dL (3.4-5.0); Albumin/Globulin Ratio 0.6 (1.1-1.8); Alkaline Phosphatase 67 U/L (45-117); Anion Gap 8.5 mEq/L (5.0-15.0); BUN Blood Urea Nitrogen 14 mg/dL (7-18); Bicarbonate 27 mEq/L (21-32); Bilirubin Direct 0.4 mg/dL (0-0.2); Bilirubin Indirect, Calculated 0.4 mg/dL (0.2-0.8); Bilirubin Total 0.8 mg/dL (0.2-1.0); Globulin 2.9 g/dL (2.3-3.5); Glucose Level 95 mg/dL (74-106); Phosphorus 2.9 mg/dL (2.5-4.9); Potassium 3.5 mEq/L (3.5-5.1); Protein, Total 4.7 g/dL (6.4-8.2); Sodium Level 150 mEq/L (136-145)
[2024-11-08 08:02] LABS: Glomerular Filtration Rate 125 ml/min (=/>90)
[2024-11-08] MEDS: ALBUMIN HUMAN 25% 100 ML IV ONE (08:13)
[2024-11-08 08:42] LABS: Specific Gravity 1.012 (1.005-1.030); Sqamous Epithelial None Seen /HPF (None Seen); Urine Bacteria None Seen /HPF (<20); Urine Bilirubin NEGATIVE (Negative); Urine Blood 2+ (Negative); Urine Clarity Extremely Turbid (Clear); Urine Color Yellow (Yellow); Urine Culture Reflex Order REFLEXED; Urine Glucose NEGATIVE (Negative); Urine Ketones NEGATIVE (Negative); Urine Microscopic Reflex YN ORDER UMIC; Urine Mucus Slight /HPF (None Seen); Urine Nitrite NEGATIVE (Negative); Urine Protein NEGATIVE (Negative); Urine Urobilinogen Normal (Normal); Urine WBC >50 /HPF (<5); Urine Yeast (Budding) Many /HPF (None Seen); Urine Yeast with Hyphae Trace /HPF (None Seen); Urine pH 5.5 (5.0-7.0)
[2024-11-08 10:21] LABS: Blood O2 Saturation 98.2 % (92-98.5)
[2024-11-08 10:22] LABS: Blood Gas Oxyhemoglobin 96.4 % (94-97); Blood Gas THB 10.1 g/dl (12-18)
--- NOTE | 2024-11-08 10:36 | P.PN ---
Subjective Date of Service: 11/08/24 Chief Complaint: Cardiac arrest, acute respiratory failure, sepsis Patient with spontaneous nonpurposeful eye blinking. Patient remain unresponsive. She is breathing slightly over the vent. No recorded fever. Physical Examination - Vital Signs Temperature: 98 F Blood Pressure: 128/77 Pulse: 98 Respirations: 14 Pulse Ox (%): 96 - Studies Microbiology Data (last 24 hrs): 11/02/24 14:25 Blood - Blood Aerobic Blood Culture - Final Pseudomonas Aeruginosa 11/02/24 14:25 Blood - Blood Blood Culture Gram Stain - Final 11/02/24 14:25 Blood - Blood Anaerobic Blood Culture - Final No growth in 5 days. 11/02/24 14:15 Blood - Blood Aerobic Blood Culture - Final Pseudomonas Aeruginosa 11/02/24 14:15 Blood - Blood Blood Culture Gram Stain - Final 11/02/24 14:15 Blood - Blood Anaerobic Blood Culture - Final No growth in 5 days. Assessment And Plan - Plan Physical examination General: Alert and oriented x3, NAD, Heart: Heart sounds 1 and 2 normal, regular rhythm, normal rate, no pedal edema Lungs: Clear to auscultation bilaterally, adequate breath sounds bilaterally, no rhonchi or crackles. Abdomen: Soft, nondistended, nontender, normal bowel sounds. Skin: Normal skin turgor, no rash, no nodules or ulcers. Neuro: Decorticate posturing, spontaneous eye blinking, no eye tracking, no visual tract response. Diagnosis Cardiac arrest/asystole Acute cystitis without hematuria Acute metabolic encephalopathy Anoxic encephalopathy Acute respiratory failure with hypoxia and hypercapnia Sepsis. History of multiple sclerosis Cardiac arrest/asystole Unknown etiology Patient noted to have sepsis with UTI Echocardiogram shows normal EF. Lactic acidosis Troponin negative. Patient is normotensive without vasopressors. Cardiology input appreciated. Continue telemetry Acute metabolic encephalopathy Anoxic encephalopathy Acute respiratory failure with hypoxia and hypercapnia Constricted pupil, nonreactive No corneal reflex. Patient currently on life support, no spontaneous breathing movement. Poor prognosis. Neurology consulted to evaluate for brain . Recommended withdrawal of care and hospice once brain diabetes established. Patient intubated on mechanical ventilation. Pulmonary Dr. Breen is following and managing. Suprapubic catheter associated UTI POA Sepsis CT abdomen indicates mild to moderate left hydronephrosis and mild right hydronephrosis. Continue IV Merrem and vancomycin Blood cultures grew Carbapenem resistant Pseudomonas. Infectious disease is following Chronic pain syndrome Patient is on chronic opioids. Patient is on methadone and other psychoactive medication. Possibility of drug overdose leading to cardiac arrest. History multiple sclerosis. Patient is not on any disease modifying medication. Goals of care Poor prognosis given anoxic encephalopathy. Neurology Dr. Gibbs is evaluating for brain . Hospice consult for withdrawal of care once brain is established. 11/04 Patient noted to have some spontaneous breathing. Neurology evaluated patient. EEG read by neurology Dr. Gibbs and reported findings suggestive of the presence of a severe diffuse disturbance of cerebral function which denot poor prognosis for recovery of brain function. Withdrawal of care and hospice recommended. 2 aerobic blood cultures growing gram-negative rods. Urine cultures growing gram-negative rods. Continue IV meropenem for now. Overall poor prognosis and recommended withdrawal of care and hospice. 11/05 No change in neurologic condition compared to yesterday. Patient is vent dependent, reathing slightly over the vent. No purposeful movement. Blood culture growing Carbapenem resistant Pseudomonas however her white cell count trended down significantly. Pseudomonas is sensitive to ciprofloxacin. Will therefore add Cipro. Goals of care discussed with patient's son Jose. Patient with poor prognosis for neurologic recovery as determined by neurology. Recommending withdrawal of care Jose made patient DNR. He also states that he is in conversation with the rest of the family regarding withdrawal of care. 11/06 No change in neurologic condition. I had a meeting with patient's son and ex-. Family stated they want to proceed with comfort measures and hospice and other family members agree with withdrawal of care. Patient is an organ donor. Social service consulted for inpatient hospice. 11/07 No change in neurologic condition Family want to proceed with comfort measures. Patient is an organ donor, plan for organ harvest tomorrow. No escalation of treatment Withdrawal of care and comfort measures initiation pending organ harvest. 11/08 Patient slated for withdrawal of care and organ harvest today. Continue antibiotics. Patient started on Diflucan given yeast in the urine as requested by [facility]. Patient was undergoing serial chest x-rays as requested by [facility]. DVT prophylaxis with Lovenox subQ
[2024-11-08 13:28] VITALS: TEMP 98.1
--- NOTE | 2024-11-08 13:31 | RAD REPORT ---
Procedure: Chest Single View HISTORY: Cough COMPARISON: November 07, 2022 FINDINGS: Mild left lower lobe opacity with volume loss. The right lung appears clear of acute infiltrate. Central venous line and endotracheal tube in good position. No significant pleural effusion noted. The heart is normal size. IMPRESSION: Mild left lower lobe opacity with volume loss unchanged probably a combination of atelectasis and pne umonia
[2024-11-08 13:40] VITALS: O2SAT 95
[2024-11-08] MEDS ORDERED: VANCOMYCIN 1 GM in NA CHLORIDE 0.9% 250 ML IVPB ONE (14:00)
[2024-11-08] MEDS: LORazepam 2 MG/ML VIAL IV PRN (15:00)
[2024-11-08] MEDS: HEPARIN 10,000 UNIT/10 ML VIAL IV SCH (15:00)
[2024-11-08] MEDS ORDERED: ALBUMIN HUMAN 25% 100 ML IV SCH (15:00)
[2024-11-08] MEDS ORDERED: Ciprofloxacin 200mg IV 200 MG/100 ML IV.SOLN. IV SCH (15:00)
--- NOTE | 2024-11-08 15:55 | P.PN ---
Date of Service: 11/08/24 Patient transferred to the OR for withdrawal of care and comfort measures. Patient given comfort measures medications-IV morphine and Ativan and extubated. On examination, no cardiopulmonary activity. Pupils fixed and unreactive to light. monitor tech shows asystole. Patient on 11/08/2024 at 15:49 hours.
--- NOTE | 2024-11-08 15:56 | P.DS ---
Admission Date: 11/02/24 Discharge Date: 11/08/24 Reason for Admission: Cardiac arrest, acute respiratory failure, sepsis Vital Signs/Physical Exam: Temp Pulse Resp BP Pulse Ox 98.1 F 82 17 123/78 97 11/08/24 12:00 11/08/24 13:00 11/08/24 13:00 11/08/24 13:00 11/08/24 13:00 Laboratory Data at Discharge: WBC 8.40 thou/uL (4.3-10.9) 11/08/24 07:28 Hgb 9.9 g/dL (12.0-15.0) L D 11/08/24 07:28 Hct 30.5 % (36.0-45.0) L 11/08/24 07:28 Plt Count 200 thou/uL (152-406) 11/08/24 07:28 PT 14.0 SECONDS (10.0-13.0) H 11/08/24 07:28 INR 1.24 11/08/24 07:28 APTT 28.7 SECONDS (24.3-36.9) 11/07/24 20:37 Sodium 150 mEq/L (136-145) H 11/08/24 07:28 Potassium 3.5 mEq/L (3.5-5.1) 11/08/24 07:28 BUN 14 mg/dL (7-18) 11/08/24 07:28 Creatinine < 0.25 mg/dL (0.55-1.02) L 11/08/24 07:28 Glucose 95 mg/dL (74-106) 11/08/24 07:28 Phosphorus 2.9 mg/dL (2.5-4.9) 11/08/24 07:28 Magnesium 2.0 mg/dL (1.6-2.4) 11/08/24 07:28 Total Bilirubin 0.8 mg/dL (0.2-1.0) 11/08/24 07:28 AST 38 U/L (15-37) H 11/08/24 07:28 ALT 28 U/L (13-56) 11/08/24 07:28 Alkaline Phosphatase 67 U/L (45-117) 11/08/24 07:28 Lipase 13 U/L (13-75) 11/06/24 23:30 Home Medications: Amitriptyline [Elavil] 10 mg PO BEDTIME 11/17/14 Methadone HCl [Methadone HCl*] 10 mg PO Q6H 11/17/14 Cyclobenzaprine [Flexeril*] 10 mg PO TID 07/15/15 Lansoprazole [Prevacid] 30 mg PO DAILY 07/15/15 Followup: NONE,NONE [Primary Care Provider] -
[2024-11-08 16:31] VITALS: BP 132/77
--- NOTE | 2024-11-09 12:32 | EKG ---
Test Date: 2024-11-02 Test Time: 13:55:09 [employer]: BP MEASUREMENT RESULTS: Intervals: Rate: 110 DE: 166 QRSD: 88 QT: 354 QTc: 479 [place]: P: 80 DE: 166 QRS: 70 T: 75 INTERPRETIVE STATEMENTS: Sinus tachycardia Right atrial enlargement Borderline ECG Compared to ECG 09/10/2024 13:31:08 ST (T wave) deviation no longer present Myocardial infarct finding no longer present Myocardial infarct finding no longer present Electronically Signed On 11-09-24 12:18:34 TALENT COORDINATOR by Rajan Kwon
== END 2024-11-08 15:49 | disposition expired | DRG 698 ==
LOC: ER 13:11 → ERHOLD 17:10 → 3RD-ICU 18:24
PROVIDERS: ADMIT Hospitalist; ATTEND Internal Medicine
PROC: 5A1955Z Respiratory Ventilation, Greater than 96 Consecutive Hours (ICD-10-PCS; principal; 2024-11-02)
PROC: 0BH17EZ Insertion of Endotracheal Airway into Trachea, Via Natural or Artificial Opening (ICD-10-PCS; 2024-11-02)
PROC: 02HV33Z Insertion of Infusion Device into Superior Vena Cava, Percutaneous Approach (ICD-10-PCS; 2024-11-02)
PROC: 4A033R1 Measurement of Arterial Saturation, Peripheral, Percutaneous Approach (ICD-10-PCS; 2024-11-02)
DX: T83.518A Infection and inflammatory reaction due to other urinary catheter, initial encounter (principal); A41.9 Sepsis, unspecified organism; G93.41 Metabolic encephalopathy; J96.01 Acute respiratory failure with hypoxia; R65.21 Severe sepsis with septic shock; J96.02 Acute respiratory failure with hypercapnia; R40.20 Unspecified coma; N13.6 Pyonephrosis; E87.0 Hyperosmolality and hypernatremia; E87.20 Acidosis, unspecified; G93.1 Anoxic brain damage, not elsewhere classified; E44.0 Moderate protein-calorie malnutrition; Z16.29 Resistance to other single specified antibiotic; G35 Multiple sclerosis; I10 Essential (primary) hypertension; G89.4 Chronic pain syndrome; I46.9 Cardiac arrest, cause unspecified; K21.9 Gastro-esophageal reflux disease without esophagitis; B96.5 Pseudomonas (aeruginosa) (mallei) (pseudomallei) as the cause of diseases classified elsewhere; Z66 Do not resuscitate; Z88.0 Allergy status to penicillin; Z88.2 Allergy status to sulfonamides; Z88.1 Allergy status to other antibiotic agents; Z74.01 Bed confinement status; Z68.27 Body mass index [BMI] 27.0-27.9, adult
CPT/HCPCS: 36415; 36556; 36600; 70450; 71045; 71250; 74176; 76770; 80048; 80053; 80076; 80143; 80179; 80202; 80307; 81001; 82077; 82550; 82805; 82977; 83605; 83690; 83735; 83880; 84100; 84132; 84443; 84484; 84702; 85025; 85610; 85730; 86850; 86900; 86901; 86920; 87040; 87077; 87086; 87088; 87186; 87205; 92950; 93005; 93306; 94002; 94003; 95816; 99291; 99292; J0692; J0744; J1450; J1650; J2185; J2270; J2470; J2704; J3010; J3475; J3480; J7030; J7040; J7050; J7120; P9016; P9047

== ENCOUNTER 2024-11-06 16:55 | Inpatient (IN) | payer OTHER ==
[2024-11-06 17:19] VITALS: O2SAT 98; BMI 28.8
[2024-11-06 18:01] VITALS: BP 146/93
== END 2024-11-06 23:00 | disposition other institution (70) | DRG 951 ==
LOC: 3RD-ICU 16:55
DX: Z52.89 Donor of other specified organs or tissues (principal)